=== PATIENT | male | born 1940 | race Caucasian/White ===

== ENCOUNTER 2022-02-15 12:29 | Outpatient (CLI) | payer MEDICARE, SELFPAY ==
--- NOTE | ~2022-02-15 | US_ITS ---
EXAMINATION: US biopsy st neck thorax DATE: 02/15/2022 14:46 INDICATION: Localized swelling, mass and lump at the right neck TECHNIQUE: The procedure including the risks and benefits was discussed with the patient. Risks discu ssed included bleeding and infection. The patient understood the risks and agreed to proceed. The sk in overlying the right neck was prepped and draped in usual sterile fashion. Anesthetic was administ ered with 1% lidocaine subcutaneously. An 18 gauge core biopsy needle was advanced under continuous ultrasound observation to the lesion of interest and a single core biopsy specimens obtained. 5 addit ional core biopsies were obtained with a 14-gauge core biopsy needle also with continuous ultrasound observation. The 18-gauge core and 3 of the 14-gauge core biopsy specimens were placed in RPMI media and 2 of the 14-gauge core biopsy specimens were placed in formalin. The needle was removed and the entry site was cleaned and dressed. Post procedure ultrasound demonstrated no hemorrhage. FINDINGS: Ultrasound images demonstrate biopsy needles advanced into a 3.4 x 2.9 x 2.2 cm hypoechoic mass at the right neck. IMPRESSION: 1. Successful Ultrasound-guided biopsy of a 3.4 x 2.9 x 2.2 cm hypoechoic mass at the right neck. Reviewed, dictated and finalized at location A.
== END 2022-02-15 12:30 | disposition home or self-care (01) ==
PROVIDERS: PCP Emergency Medicine; Visit Provider Emergency Medicine
DX: R22.1 Localized swelling, mass and lump, neck (principal)
CPT/HCPCS: 20206; 76942; 88184; 88305; 88342

== ENCOUNTER 2022-03-23 14:33 | Outpatient (CLI) | payer MEDICARE, SELFPAY ==
--- NOTE | ~2022-03-23 | PE_ITS ---
EXAMINATION: PET skull to mid thigh DATE: 03/23/2022 16:03 INDICATION: Malignant neoplasm of base of tongue. TECHNIQUE: Blood glucose level was 191 mg/dL. 7.721 mCi of 18-fluorodeoxyglucose (18-FDG) was adminis tered i.v. Low dose computed tomography (CT) images were acquired from the base of the brain to the p roximal thighs for attenuation correction and anatomic localization. Automated exposure control was e mployed. Dose-length product (DLP) was 819 mGy-cm. Positron emission tomography (PET) images were acq uired in the same distribution. COMPARISON: Ultrasound 02/15/2022 FINDINGS: Head/neck: There is a 3.4 x 2.4 cm high right internal jugular chain node with maximum SUV of 12.7. T here is increased activity in the oral cavity, pharynx, and glottis without abnormal CT correlate, li asia physiologic. Specifically, no abnormal mass is identified on CT images of the base of tongue. Chest: The lungs demonstrate mild atelectasis. Calcified pulmonary nodules and calcified hilar and me diastinal lymph nodes are consistent with old granulomatous disease. There is a 5 mm nodule in left l ower lobe without increased activity that is too small for PET evaluation, likely benign. No pleural effusion. The heart size is normal. No pericardial effusion. There are coronary artery calcifications . Abdomen/pelvis/proximal thighs: The liver, gallbladder, spleen, pancreas, adrenal glands, and kidneys are normal. There are no dilated loops of bowel. The prostate is mildly enlarged. The appendix is no rmal. There are bilateral inguinal hernias containing fat. There are no pathologically enlarged lymph nodes. There is no free intraperitoneal fluid. There is a small sliding hiatal hernia. There is mode rate lumbar spondylosis. IMPRESSION: 1. Enlarged high right internal jugular chain lymph node with increased activity, consistent with met astatic disease. Reviewed, dictated and finalized at location A. OR [employer] IMPRESSION: 1. Enlarged high right internal jugular chain lymph node with increased activit y, consistent with metastatic disease.
[2022-03-23 14:54] LABS: Glucose Point of Care 191 mg/dl (65-105)
== END 2022-03-23 14:34 | disposition home or self-care (01) ==
PROVIDERS: PCP Emergency Medicine; Visit Provider Radiology Radiation Oncology
DX: C01 Malignant neoplasm of base of tongue (principal)
CPT/HCPCS: 78815; A9552

== ENCOUNTER 2022-06-07 10:56 | Observation (INO) | payer MEDICARE, SELFPAY ==
[2022-06-07] VITALS (8 sets, daily range): BP systolic 89–133; BP diastolic 47–99; PULSE 85–101; RESP 12–22; TEMP 36.4–36.8; O2SAT 97–98; BMI 26.9
--- NOTE | ~2022-06-07 | XR_ITS ---
Portable chest x-ray Comparison: 04/19/2013 Clinical History: Cough Findings: Lungs are clear, without focal consolidation or pleural effusion. Cardiomediastinal silho uette is stable. Bones and soft tissues are unremarkable. Impression: Clear lungs. Reviewed, dictated and finalized at location . OR [facility] NURSING PRACTICE Impression: Clear lungs.
--- NOTE | 2022-06-07 13:25 | ED.GENADULT ---
HPI - General Adult General Chief complaint: Recheck/Abnormal Lab/Rx Stated complaint: hypotension Time Seen by Provider: 06/07/22 13:20 Source: family and RN notes reviewed History of Present Illness HPI narrative: Patient presents emergency department from his radiation therapy for dysphagia. 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 Vo he is also followed by Dr. Castillo for radiation treatment. The patient has lost another 3 pounds since his previous radiation treatment last week and at this point it is felt that the patient is going to repot require a G-tube for continued feeding and hydration. Per the patient's all he was able to eat yesterday was 2 chicken wings and 1 boost the patient has been dehydrated patient has been having intermittent dry heaves which states has been ongoing since he had his chemotherapy patient denies any fevers or chills chest pain shortness of breath abdominal pain at this time Related Data Allergies Allergy/AdvReac Type Severity Reaction Status Date / Time No Known Allergies Allergy Verified 06/07/22 10:08 Review of Systems Review of Systems: Gen.: Denies fevers or chills ENT: See HPI Respiratory: Denies shortness of breath or cough CV: Denies chest pain or palpitations GI: Denies abdominal pain or diarrhea. 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 Cataract (lens) fragments in eye following cataract surgery, bilateral Family History Family History Mother Diabetes mellitus Hypertension Sibling Hypertension Family history of elevated blood lipids Family history of cardiovascular disease Family history of lung cancer Father Family history of malignant neoplasm Other Family history of kidney disease Social History Social History Smoking status: Never smoker Tobacco type: cigarettes Smoking end date: 05/02/1962 Additional smoking assessment comments: smoked on occassion nothing for lengths of time Alcohol intake: never Spiritual care concerns: No Exam Narrative: APPEARANCE: No acute distress, nontoxic, resting in bed EYES: EOMI HEENT: Normocephalic, atraumatic, oral mucosa dry, airway patent RESPIRATORY: No respiratory distress Clear to auscultation bilaterally with no rhonchi wheezing or rales. CARDIOVASCULAR: Regular rate and rhythm without murmurs rubs or gallops. ABDOMINAL: Soft, nontender, nondistended, no rebound or guarding MUSCULOSKELETAl: Moves all extremities. No clubbing, cyanosis or edema. NEURO: Awake and alert. Following commands, speech normal, no focal deficits SKIN:: Warm, dry. No rashes lesions or abrasions PSYCHIATRIC: Normal affect/mood, Course Course Emergency Course: Discussed with Dr Price for GI agrees with consult and will follow as inpatient Discussed with Dr. hunt For oncology agrees with consult and will follow as inpatient Discussed with AAMIR Carl for Dr. Spicer after hospital service agrees with admission Discussed with patient and family results of workup and diagnosis. Discussed need for admission. Patient and family understand and agree to current treatment plan Vital Signs Vital signs: Vital Signs Temperature 97.6 F 06/07/22 11:03 Pulse Rate 89 06/07/22 11:03 Respiratory Rate 16 06/07/22 11:03 Blood Pressure 89/47 L 06/07/22 11:03 Pulse Oximetry 98 06/07/22 11:03 Temperature 97.6 F 06/07
[2022-06-07] MEDS: SODIUM CHLORIDE 0.9% IV 1,000 ML 999 ML IV CONT (14:09)
[2022-06-07 14:30] LABS: Basophils Percent Auto 0.4 % (0.2-1.2); Eosinophils Percent Auto 0.4 % (0-4.4); Hematocrit 29.1 % (42.0-52.0); Hemoglobin 10.6 g/dL (14.0-18.0); Immature Granulocyte Absolute 0.02 K/mm3 (0.00-0.031); Immature Granulocyte Percent A 0.8 % (0-0.5); Lymphocytes Absolute Auto 0.71 K/mm3 (0.9-3.2); Lymphocytes Percent Auto 28.9 % (18.3-44.2); Mean Corpuscular HGB Conc 36.4 g/dl (32-36); Mean Corpuscular Hemoglobin 31.8 pg (26-34); Mean Corpuscular Volume 87.4 fl (80-100); Mean Platelet Volume 8.8 fl (7.4-10.4); Monocytes Absolute Auto 0.4 K/mm3 (0.1-0.6); Neutrophils Absolute Auto 1.3 K/mm3 (1.3-6.7); Neutrophils Percent Auto 54.5 % (45.5-73.1); Platelet Count Result 315 k/mm3 (150-375); Red Blood Count 3.33 M/mm3 (4.6-6.20); Red Cell Distribution Width 14.6 % (11.5-14.5); White Blood Count 2.5 K/mm3 (4.5-10.0)
[2022-06-07 14:38] LABS: Alanine Aminotransferase 19 U/L (6-50); Albumin Level 3.5 g/dL (3.5-5.1); Alkaline Phosphatase 75 U/L (38-126); Anion Gap 7 mmol/L (8-16); Aspartate Amino Transferase 33 U/L (17-59); Bilirubin,Total 0.7 mg/dL (0.2-1.3); Blood Urea Nitrogen 28 mg/dL (9-20); Calcium 8.7 mg/dL (8.4-10.2); Carbon Dioxide 29 mmol/L (22-30); Chloride 96 mmol/L (98-107); Estimated CRCL calculation 35 ml/min; Estimated Glomerular Filt Rate 42; Glucose 163 mg/dL (65-110); Magnesium 1.6 mg/dL (1.6-2.3); Potassium 3.3 mmol/L (3.4-5.0); Sodium 132 mmol/L (137-145)
[2022-06-07 14:39] LABS: INR 1.1; Prothrombin Time 13.8 Seconds (11.1-14.7)
[2022-06-07 14:40] LABS: Partial Thromboplastin Time 28.7 SECONDS (22.3-36.8)
[2022-06-07 15:20] LABS: Influenza A QL RT-PCR Negative (Negative); Influenza B QL RT-PCR Negative (Negative); SARS-CoV-2 RNA PCR Negative
--- NOTE | 2022-06-07 15:45 | ADMGEN ---
This patient, Bebo Carpenter, was admitted to Medical Room 243-01. Patient/family oriented to hospital policies and general routines including ID bracelet, bed and alarms, visiting hours, pain management, procedures, bathroom and other care routines, personal items, smoking policy, room service/diet, and visiting hours. Information on how to activate the Rapid Response Team has been discussed. Patient/Family are encouraged to report perceived risks to care and to ask questions if they do not understand what they are told or what they should do.
--- NOTE | 2022-06-07 15:57 | WPDGICN ---
Assessment and Plan Assessment and plan (1) Cancer of base of tongue: Code(s): C01 - Malignant neoplasm of base of tongue Status: Acute Assessment and Plan: Patient admitted with cancer at the base of the tongue. He will require nutritional support. He has difficulty eating because of pain. He is unable to maintain adequate oral intake. Laboratory parameters show mild azotemia suggesting early dehydration. Plan is for patient to undergo PEG tube placement anticipate this for tomorrow. He does not appear to have any coagulation problems. Anticoagulation such as Plavix will need to be held in anticipation of this. GI Consult Note Consult date/time: 06/07/22 15:57 Reason for consult: Consult for PEG tube placement HPI: Bebo Carpenter is a 81 year old male I am asked to see for possible PEG tube placement. 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 Currently receiving chemotherapy and radiation therapy. Recently he has begun have difficulty because pain in with eating. PEG tube is been advised. For this reason patient went to the emergency room to have this arranged. He is now admitted. Patient admits to only a small amount weight loss. He does not have too much pain when he is not eating. Has begun to lose weight with decreased oral intake. He has no difficulty with bleeding. He does take Plavix on a routine basis. Family history is noncontributory. Patient does report smoking cigarettes 30 years ago. Review of Systems Review of Systems: Review of systems noncontributory. 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 Cataract (lens) fragments in eye following cataract surgery, bilateral Family History Family History Mother Diabetes mellitus Hypertension Sibling Hypertension Family history of elevated blood lipids Family history of cardiovascular disease Family history of lung cancer Father Family history of malignant neoplasm Other Family history of kidney disease Social History Social History Smoking status: Never smoker Tobacco type: cigarettes Smoking end date: 05/02/1962 Additional smoking assessment comments: smoked on occassion nothing for lengths of time Alcohol intake: never Spiritual care concerns: No Meds Home Medications and Allergies Home Medications Medication Instructions Recorded Confirmed Type atorvastatin 40 mg tablet 40 mg PO DAILY #90 tabs 12/17/21 06/07/22 Rx clopidogrel 75 mg tablet See Rx Instructions .Route 03/04/22 06/07/22 Rx .COMPLEX #90 tabs losartan 100 See Rx Instructions .Route 04/21/22 06/07/22 Rx mg-hydrochlorothiazide 12.5 mg .COMPLEX #90 tabs tablet Allergies Allergy/AdvReac Type Severity Reaction Status Date / Time No Known Allergies Allergy Verified 06/07/22 10:08 Vital Signs Vital Signs - 24 hr 06/07/22 11:03 06/07/22 13:19 06/07/22 13:21 Temperature 97.6 F Pulse Rate 89 85 Respiratory Rate 16 12 Blood Pressure 89/47 L 112/77 Pulse Oximetry 98 98 97 06/07/22 13:30 06/07/22 13:31 Temperature Pulse Rate 90 94 Respiratory Rate 22 H 18 Blood Pressure 114/99 H Pulse Oximetry Exam Narrative: Physical exam reveals patient to be alert. Vital signs stable. HEENT exam is unremarkable. Patient is anicteric. Modest swelling on the right side of his neck. Lungs are clear. Heart without murmur. Abdomen bowel sounds present soft nontender no scars are present. No prior surgeries evident. Results Labs 06/07/22 14:17 06/07/22 14:18 Labs: Short CBC 06/07/22 Range/Units 14:17 WBC 2.5 L (4.5-10.0) K/mm3 Hgb 10.6 L (14.0-18.0) g/dL Hct 29.1 L (42.0-52.0) % Plt Count 315 D
[2022-06-07] MEDS: SODIUM CHLORIDE 0.9% IV 1,000 ML 100 ML IV CONT (16:33)
--- NOTE | 2022-06-07 22:06 | PM.IMHP ---
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 The patient is receiving chemotherapy and he is seen by Dr. Vo add he is also followed by Dr. Castillo for radiation treatment. The patient has been losing weight and has had a poor oral intake. Family members are thinking that the patient may need a G-tube for feeding and hydration. The patient was able to eat yesterday but only 8 to chicken wings and a boost. He has been dehydrated and intermittently having some dry heaves. He denies any fever chills. Dr. Price and Dr. Vo have been consulted. The patient was started on Ancef and IV fluids. His white count is 2.5 his H&H is 10.6 and 29.1. The patient has been receiving chemotherapy. Sodium 132 potassium 3.3. Creatinine 1.6 which is around his baseline. Blood sugar 163. COVID is negative influenza a and B are negative as well. Initial blood pressure was 93/52 and got down as low as 89/47. Then it came up to 133/66. The patient is being admitted for observation status on the date of service of 06/07/2022 Review of Systems Review of Systems: See HPI All systems reviewed & are unremarkable except as noted in HPI and below Constitutional: Constitutional: Reports as per HPI and Reports no additional constitutional complaints Eyes: Eyes: Reports as per HPI and Reports no additional eye complaints ENT: Reports system reviewed and no additional complaints, except as documented and Reports Normal hearing present Cardiovascular: Cardiovascular: Reports no additional cardiovascular complaints Respiratory: Respiratory: Reports no additional respiratory complaints and Reports no additional respiratory complaints Gastrointestinal: Gastrointestinal: Reports as per HPI and Reports no additional gastrointestinal complaints Musculoskeletal: Musculoskeletal: Reports no additional musculoskeletal complaints Integumentary/Breasts: Skin/Breast: Reports system reviewed and no additional complaints, except as docu and Reports as per HPI Neurologic: Reports system reviewed and no additional complaints, except as documented, Reports as per HPI and Reports Normal hearing present Psychiatric: Psychiatric: Reports no additional psychiatric complaints and Reports as per HPI Endocrine: Endocrine: Reports no additional endocrine complaints Hematologic/Lymphatic: Hematologic/Lymphatic: Reports no additional hematologic/lymphatic complaints Allergic/Immunologic: Allergic/Immunologic: Reports no additional allergic/immunologic complaints [facility] Past Medical History Medical History (Updated 06/08/22 @ 02:10 by Meseret Ayala NP) Benign hypertension 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 Cataract (lens) fragments in eye following cataract surgery, bilateral Essential (primary) hypertension History of CVA (cerebrovascular accident) Mixed hyperlipidemia Obstructive sleep apnea Surgical History Surgical History (Updated 06/08/22 @ 02:00 by Meseret Ayala NP) Surgical history unknown Family History Family History Mother Diabetes mellitus Hypertension Sibling Hypertension Family history of elevated blood lipids Family history of cardiovascular disease Family history of lung cancer Father Family history of malignant neoplasm Other Family history of kidney disease Social History Social History (Updated 06/08/22 @ 02:01 by Meseret Ayala NP) Social History: The patient lives with his and has 4 children. The patient used to smoke. Code status full code Smoking status: Former smoker Tobacco type: cigarettes Second hand tobacco smoke exposure: No Smoking end date: 05/02/1962 Additional smoking assessment comments: smoked on occassion nothing for lengths of time
[2022-06-08] VITALS (11 sets, daily range): BP systolic 116–144; BP diastolic 56–80; PULSE 79–96; RESP 18–25; TEMP 36.1–37.6; O2SAT 94–100; BMI 26.9
[2022-06-08] MEDS: SODIUM CHLORIDE 0.9% IV 1,000 ML 100 ML IV CONT (02:35)
[2022-06-08 05:26] LABS: Glucose Point of Care 110 mg/dl (65-105)
[2022-06-08 05:49] LABS: Basophils Percent Auto 0.5 % (0.2-1.2); Eosinophils Percent Auto 1.5 % (0-4.4); Hematocrit 26.9 % (42.0-52.0); Hemoglobin 9.5 g/dL (14.0-18.0); Immature Granulocyte Absolute 0.02 K/mm3 (0.00-0.031); Lymphocytes Absolute Auto 0.59 K/mm3 (0.9-3.2); Lymphocytes Percent Auto 29.4 % (18.3-44.2); Mean Corpuscular HGB Conc 35.3 g/dl (32-36); Mean Corpuscular Volume 87.9 fl (80-100); Mean Platelet Volume 8.6 fl (7.4-10.4); Monocytes Absolute Auto 0.3 K/mm3 (0.1-0.6); Monocytes Percent Auto 15.4 % (2.6-8.5); Neutrophils Absolute Auto 1.1 K/mm3 (1.3-6.7); Neutrophils Percent Auto 52.2 % (45.5-73.1); Platelet Count Result 289 k/mm3 (150-375); Red Blood Count 3.06 M/mm3 (4.6-6.20); Red Cell Distribution Width 14.5 % (11.5-14.5)
[2022-06-08 05:59] LABS: INR 1.2; Prothrombin Time 14.5 Seconds (11.1-14.7)
[2022-06-08 06:07] LABS: Alanine Aminotransferase 17 U/L (6-50); Albumin Level 3.1 g/dL (3.5-5.1); Alkaline Phosphatase 62 U/L (38-126); Anion Gap 4 mmol/L (8-16); Aspartate Amino Transferase 28 U/L (17-59); Bilirubin,Total 0.8 mg/dL (0.2-1.3); Blood Urea Nitrogen 21 mg/dL (9-20); Calcium 7.9 mg/dL (8.4-10.2); Carbon Dioxide 29 mmol/L (22-30); Chloride 99 mmol/L (98-107); Estimated CRCL calculation 45 ml/min; Estimated Glomerular Filt Rate 58; Glucose 109 mg/dL (65-110); Potassium 3.2 mmol/L (3.4-5.0); Sodium 132 mmol/L (137-145)
[2022-06-08] MEDS: KCL 20MEQ/0.9% SOD CHL 1,000 ML 75 ML IV CONT (08:28)
[2022-06-08 10:26] LABS: Hemoglobin A1C 10.8 % (<5.7)
[2022-06-08] MEDS: LACTATED RINGERS 1,000 ML 150 ML IV CONT (10:26)
[2022-06-08 10:27] LABS: Glucose Point of Care 124 mg/dl (65-105)
--- NOTE | 2022-06-08 10:48 | WPDANESEPPF ---
Anes - Initial Pre Proc Eval Procedure: Operation Date: 06/08/22 12:30 Proposed Procedures p Percutaneous Endoscopic Gastrostomy - Ulysses Price MD Date/Time: 06/08/22 10:48 Surgeon: Nishi Spicer MD Pre Op Diagnosis: Dehydration/Throat Cancer/Renal Insufficiency Patient Data Age: 81 Gender: M Height: 1.75 m Weight: 82.6 kg Last Vital Signs Temp 97.4 F L 06/08/22 10:35 Pulse 91 06/08/22 10:35 Resp 18 06/08/22 10:35 BP 128/60 06/08/22 10:35 Pulse Ox 98 06/08/22 10:35 O2 Del Method Room Air 06/08/22 10:35 Allergies Allergy/AdvReac Type Severity Reaction Status Date / Time No Known Allergies Allergy Verified 06/08/22 10:31 Home Medications Medication Instructions Recorded Confirmed Type atorvastatin 40 mg tablet 40 mg PO DAILY #90 tabs 12/17/21 06/07/22 Rx clopidogrel 75 mg tablet See Rx Instructions .Route 03/04/22 06/07/22 Rx .COMPLEX #90 tabs losartan 100 See Rx Instructions .Route 04/21/22 06/07/22 Rx mg-hydrochlorothiazide 12.5 mg .COMPLEX #90 tabs tablet Laboratory Tests 06/07/22 06/07/22 06/07/22 14:17 14:17 14:18 WBC 2.5 K/mm3 L K/mm3 (4.5-10.0) RBC 3.33 M/mm3 L M/mm3 (4.6-6.20) Hgb 10.6 g/dL L g/dL (14.0-18.0) Hct 29.1 % L % (42.0-52.0) MCV 87.4 fl fl (80-100) MCH 31.8 pg pg (26-34) MCHC 36.4 g/dl H g/dl (32-36) RDW 14.6 % H % (11.5-14.5) Plt Count 315 k/mm3 D k/mm3 (150-375) MPV 8.8 fl fl (7.4-10.4) Immature Gran % (Auto) 0.8 % H % (0-0.5) Neut % (Auto) 54.5 % % (45.5-73.1) Lymph % (Auto) 28.9 % % (18.3-44.2) [place] % (Auto) 15.0 % H % (2.6-8.5) Eos % (Auto) 0.4 % % (0-4.4) Baso % (Auto) 0.4 % % (0.2-1.2) Lymph # (Auto) 0.71 K/mm3 L K/mm3 (0.9-3.2) [place] # (Auto) 0.4 K/mm3 K/mm3 (0.1-0.6) Eos # (Auto) 0.0 K/mm3 K/mm3 (0-0.3) Baso # (Auto) 0.0 K/mm3 K/mm3 (0.0-0.1) Abs Immat Gran (auto) 0.02 K/mm3 K/mm3 (0.00-0.031) Absolute Neuts (auto) 1.3 K/mm3 K/mm3 (1.3-6.7) Absolute Nucleated RBC 0.0 K/mm3 K/mm3 (0.0-0.012) Nucleated RBC % 0.0 % % (0.0-0.2) PT 13.8 Seconds Seconds (11.1-14.7) INR 1.1 APTT 28.7 SECONDS SECONDS (22.3-36.8) Sodium Potassium Chloride Carbon Dioxide Anion Gap BUN Creatinine Estim Creat Clear Calc Estimated GFR Glucose POC Capillary Glucose Hemoglobin A1c Calcium Magnesium Total Bilirubin AST ALT Alkaline Phosphatase Total Protein Albumin Influenza A (RT-PCR) Negative (Negative) Influenza B (RT-PCR) Negative (Negative) SARS-CoV-2 RNA (RT-PCR) Negative 06/07/22 06/08/22 06/08/22 14:18 05:10 05:10 WBC 2.0 K/mm3 L K/mm3 (4.5-10.0) RBC 3.06 M/mm3 L M/mm3 (4.6-6.20) Hgb 9.5 g/dL L g/dL (14.0-18.0) Hct 26.9 % L % (42.0-52.0) MCV 87.9 fl fl (80-100) MCH 31.0 pg pg (26-34) MCHC 35.3 g/dl g/dl (32-36) RDW 14.5 % % (11.5-14.5) Plt Count 289 k/mm3 k/mm3 (150-375) MPV 8.6 fl fl (7.4-10.4) Immature Gran % (Auto) 1.0 % H % (0-0.5) Neut % (Auto) 52.2 % % (45.5-73.1) Lymph % (Auto) 29.4 % % (18.3-44.2) [place] % (Auto) 15.4 % H % (2.6-8.5) Eos % (Auto) 1.5 % % (0-4.4) Baso % (Auto) 0.5 % % (0.2-1.2) Lymph # (Auto) 0.59 K/mm3 L K/mm3 (0.9-3.2) [place] # (Auto) 0.3 K/mm3 K/mm3 (0.1-0.6) Eos # (Auto) 0.0 K/mm3 K/mm3 (0-0.3)
--- NOTE | 2022-06-08 11:41 | PM.IMPN ---
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 The patient is receiving chemotherapy and he is seen by Dr. Vo add he is also followed by Dr. Castillo for radiation treatment.?Presented with cheif complaints of weight loss and Poor PO intake. Was hypotensive upon admission with AK and hypokalemia. 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 4)Hypertension: Was hypotensive on arrival Holding oral meds for now 5)Anemia: ?etiology Obtain iron panel, fecal occult blood PPI Monitor H/H 5)DVT ppx:Hep SQ 6)Code:Full 7)Dispo:pending PEG tube placement and tolerating tube feeds, will likely need SNF Time Spent With Patient Time with patient: 25 - 35 minutes Subjective Date/time seen: 06/08/22 11:41 Interval history: no acute events overnight BP remained stable Await PEG tube placement today Review of Systems Constitutional: Constitutional: Reports fatigue and Reports lethargy Eyes: Eyes: Reports as per HPI ENT: Reports system reviewed and no additional complaints, except as documented Cardiovascular: Cardiovascular: Reports no additional cardiovascular complaints Gastrointestinal: Gastrointestinal: Reports no additional gastrointestinal complaints Musculoskeletal: Musculoskeletal: Reports no additional musculoskeletal complaints Neurologic: Reports as per HPI Exam Const: General: comfortable and no acute distress HENMT: Mouth: Yes dry mucous membranes Eyes: Sclera: sclerae normal Neck: Neck: supple Resp: Effort & Inspection: normal respiratory effort Auscultation: clear to auscultation bilaterally Cardio: Rate: regular rate Rhythm: regular rhythm GI: GI Palp: Yes Soft to palpation Auscultation: normal bowel sounds Skin: General skin exam: normal color Extrem: General: normal to inspection Psych: Mental Status: mental status grossly normal Objective Data Vital Signs Vital Signs: Vital Signs - 24 hr 06/07/22 13:19 06/07/22 13:21 06/07/22 13:30 Temperature Pulse Rate 85 90 Respiratory Rate 12 22 H Blood Pressure 112/77 114/99 H Pulse Oximetry 98 97 Oxygen Delivery Oxygen Flow Rate 06/07/22 13:31 06/07/22 16:12 06/07/22 15:53 Temperature 98.2 F Pulse Rate 94 95 95 Respiratory Rate 18 18 18 Blood Pressure 133/66 Pulse Oximetry 97 97 Oxygen Delivery Room Air Oxygen Flow Rate 06/07/22 22:04 06/07/22 20:00 06/08/22 06:00 Temperature 97.6 F 97.0 F L Pulse Rate 101 H 96 Respiratory Rate 18 18 Blood Pressure 117/65 130/56 L Pulse Oximetry 97 97 Oxygen Delivery Room Air Oxygen Flow Rate 06/08/22 10:35 06/08/22 11:25 06/08/22 11:35 Temperature 97.4 F L Pulse Rate 91 93 92 Respiratory Rate 18 25 H 22 H Blood Pressure 128/60 116/74 118/72 Pulse Oximetry 98 98 100 Oxygen Delivery Room Air Nasal Cannula Nasal Cannula Oxygen Flow Rate 4 4 Intake/Output Intake/Output: Intake & Output 06/05/22 06/06/22 06/07/22 06/08/22 23:59 23:59 23:59 23:59 Intake Total 1120 1000 Output Total 600 Balance 1120 400 Meds/Results Medications: Active Medications Generic Name Dose Route Start Last Admin Trade Name Freq PRN
[2022-06-08 11:45] LABS: Glucose Point of Care 119 mg/dl (65-105)
[2022-06-08 12:24] LABS: Glucose Point of Care 109 mg/dl (65-105)
--- NOTE | 2022-06-08 12:57 | PDONCCN ---
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 Patient is currently receiving concurrent chemoradiation therapy with cisplatin. He is due to receive last round of chemotherapy this week. He came into the hospital with generalized weakness and 30 lb weight loss with poor appetite. He was found to be hypotensive. He has been having difficulty eating and swallowing due to significant mucositis and dryness of the mouth. Labs also revealed low WBC count and hemoglobin. Creatinine was elevated with elevated BUN. Patient underwent EGD and placement of percutaneous gastrostomy tube done today. He seems to be slightly confused today. Review of Systems - Review of Systems All systems reviewed & are unremarkable except as noted in HPI and bel - Neurologic Reports system reviewed and no additional complaints, except as documented, Reports hearing normal [facility] Medical History: Medical History (Last Updated 06/08/22 @ 02:08 by Meseret Ayala NP) Benign hypertension 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 Cataract (lens) fragments in eye following cataract surgery, bilateral Essential (primary) hypertension History of CVA (cerebrovascular accident) Mixed hyperlipidemia Obstructive sleep apnea Surgical History: Surgical History (Last Updated 06/08/22 @ 02:00 by Meseret Ayala NP) Surgical history unknown Family History: Family History (Last Reviewed 06/08/22 @ 02:00 by Meseret Ayala NP) Mother Diabetes mellitus Hypertension Sibling Hypertension Family history of elevated blood lipids Family history of cardiovascular disease Family history of lung cancer Father Family history of malignant neoplasm Other Family history of kidney disease - Social History Social History: Social History (Last Updated 06/08/22 @ 02:01 by Meseret Ayala NP) Alcohol Use: Alcohol intake: never Substance Use: Substance use: never Others: Spiritual care concerns: No Smoking Status: Smoking status: Former smoker Tobacco type: cigarettes Second hand tobacco smoke exposure: No Smoking end date: 05/02/1960 Comments: Additional smoking assessment comments: smoked on occassion nothing for lengths of time Social Determinants of Health: Has the Lack of Transportation Kept You From Medical Appointments or From Getting Medications?: No Within the Past 12 Months, Were You Worried Whether Your Food Would Run Out Before You Got Money to Buy More?: Never True What is Your Housing Situation Today?: I Have Housing Are You Worried That in the Next 2 Months, You May Not Have Your Own Housing to Live In?: No Do You Have Trouble Paying Your Heating Or Electricity Bill?: No Do You Have Trouble Paying For Medicines?: No Are You Currently Unemployed and Looking for Work?: No Highest Level of Education Completed: High School Diploma/GED Do You Have Trouble With Childcare or the Care of a Family Member?: No Exam - Vital Signs Vital Signs - 24 hr 06/07/22 13:19 06/07/22 13:21 06/07/22 13:30 Temperature Pulse Rate 85 90 Respiratory Rate 12 22 H Blood Pressure 112/77 114/99 H Pulse Oximetry 98 97 Oxygen Delivery Oxygen Flow Rate 06/07/22 13:31 06/07/22 16:12 06/07/22 15:53 Temperature 36.8 C Pulse Rate 94 95 95 Respiratory Rate 18 18 18 Blood Pressure 133/66 Pulse Oximetry 97 97 Oxygen Delivery Room Air Oxygen Flow Rate 06/07/22 22:04 06/07/22 20:00 06/08/22 06:00 Temperature 36.4 C 36.1 C L Pulse Rate 101 H 96 Respiratory Rate 18 18 Blood Pressu
[2022-06-08 14:59] LABS: Iron 58 ug/dL (49-181)
[2022-06-08 15:09] LABS: Percent Iron Saturation 28 % (20-50)
[2022-06-08 17:11] LABS: Glucose Point of Care 135 mg/dl (65-105)
[2022-06-08 17:37] LABS: Partial Thromboplastin Time 28.4 SECONDS (22.3-36.8)
[2022-06-09] VITALS (7 sets, daily range): BP systolic 129–143; BP diastolic 63–78; PULSE 91–99; RESP 18; TEMP 36.5–37; O2SAT 96–98; BMI 26.9
[2022-06-09 00:48] LABS: Glucose Point of Care 158 mg/dl (65-105)
[2022-06-09 06:08] LABS: Glucose Point of Care 162 mg/dl (65-105)
--- NOTE | 2022-06-09 07:29 | WPDGIPROGNO ---
Progress Note: A&P Assessment and Plan (1) PEG (percutaneous endoscopic gastrostomy) status: Code(s): Z93.1 - Gastrostomy status Status: Acute Assessment and Plan: Peg tube placed yesterday. Appears be functioning adequately. Patient tolerating tube feedings at30cc an hour. Plan to increase to60cc per an hour. Family should be instructed on bolus tube feedings after discharge. Plan to continue local care to PEG tube site several times a day with either hydrogen peroxide or Betadine. Patient may be discharged today from my perspective. Patient may continue oral intake as tolerated. (2) Head and neck cancer: Code(s): C76.0 - Malignant neoplasm of head, face and neck Status: Acute Assessment and Plan: Follow-up with Oncology as scheduled. Subjective Date/time seen: 06/09/22 07:29 Interval history: Patient alert this morning. Appears at his baseline. Tolerating tube feedings at a slow rate. Review of Systems Review of Systems: Review of systems noncontributory. Exam Narrative: Physical exam reveals patient be alert. Vital signs stable. HEENT exam unremarkable. Lungs are clear. Heart without murmur. Abdomen PEG tube in left upper quadrant appears to be healing well. No significant inflammation or tenderness. Bowel sounds are present normoactive. Objective Data Vital Signs Vital Signs: Vital Signs - 24 hr 06/08/22 10:35 06/08/22 11:25 06/08/22 11:35 Temperature 97.4 F L Pulse Rate 91 93 92 Respiratory Rate 18 25 H 22 H Blood Pressure 128/60 116/74 118/72 Pulse Oximetry 98 98 100 Oxygen Delivery Room Air Nasal Cannula Nasal Cannula Oxygen Flow Rate 4 4 06/08/22 11:45 06/08/22 12:00 06/08/22 12:15 Temperature 97.0 F L 97.6 F Pulse Rate 88 92 85 Respiratory Rate 23 H 18 18 Blood Pressure 128/71 144/60 H 129/76 Pulse Oximetry 97 94 97 Oxygen Delivery Room Air Oxygen Flow Rate 06/08/22 12:45 06/08/22 13:35 06/08/22 18:40 Temperature 97.8 F 97.5 F L 98.5 F Pulse Rate 79 94 93 Respiratory Rate 18 18 18 Blood Pressure 140/64 135/80 120/64 Pulse Oximetry 97 98 98 Oxygen Delivery Oxygen Flow Rate 06/08/22 23:39 02/08/23 02:35 Temperature 99.6 F 98.6 F Pulse Rate 93 99 Respiratory Rate 20 18 Blood Pressure 131/66 129/63 Pulse Oximetry 98 97 Oxygen Delivery Oxygen Flow Rate Intake/Output Intake/Output: Intake & Output 06/06/22 06/07/22 06/08/22 06/09/22 23:59 23:59 23:59 23:59 Intake Total 1120 2470 420 Output Total 853 Balance 1120 1617 420 Meds/Results Medications: Active Medications Generic Name Dose Route Start Last Admin Trade Name Freq PRN Reason Stop Dose Admin Dextrose 12.5 gm 06/08/22 01:56 Dextrose 50% 25 Gm/50 Ml Syringe IV PUSH PRN PRN Hypoglycemia Protocol Glucagon 1 mg 06/08/22 01:56 Glucagon For Inj 1 Mg Vial IM PRN PRN Hypoglycemia Protocol Glucose 15 gm 06/08/22 01:56 Glucose Oral Gel 15 Gm Of Glucse In 37.5 Gm Tube PO PRN PRN Hypoglycemia Protocol Heparin Sodium (Porcine) 5,000 units 06/09/22 09:00 Heparin Sodium 5,000 Units/Ml Vial SUB-Q Q12HR [facility] Dextrose 1,000 mls @ 100 mls/hr 06/08/22 01:56 Dextrose 5% 1,000 Ml IVPB PRN PRN Hypoglycemia Protocol Potassium Chloride/Sodium Chloride 1,000 mls @ 75 mls/hr 06/08/22 07:50 06/09/22 00:00 Kcl 20 Meq/Ns IV CONT 75 mls/hr .[id number] [facility] Administration Insulin Aspart 2 - 5 units 06/08/22 06:00 06/09/22 06:18 Insulin Aspart (*Bkc) 100 Units/Ml SUB-Q Not Given Q6HR [facility] Protocol Insulin Glargine 5 units 06/08/22 21:00 06/08/22 21:00 Insulin Glargine (*Bkc) 100 Units/Ml SUB-Q Not Given HS [facility] Radiology Results: ITS Impressions Chest X-Ray 06/07/22 14:34 Impression: Clear lungs. Labs Labs: Laboratory Results - last 24 hr 06/08/22 06/08/22 06/08/22 05:10 10:24 11:43 APTT
--- NOTE | 2022-06-09 07:44 | PC.NURSE ---
Pt bed alarm went off this nurse ran to pt room. Pt got over the bed rail with one leg out of bed , one leg in bed. IV tubing and GT pulled taunt. Pt stated he has to void. Urinal on bedside table next to pt. Pt unable to state where he is. Pt states it is 2023. Assisted pt , gave urinal. voided . pt found with HOB flat with the tube feeding running. Pt is putting the HOB flat. Raised HOB and locked on bed screen. Bed alarm on. Report given to next shift nurse Han.
--- NOTE | 2022-06-09 08:06 | WPDANESPN ---
Anes - Prog Note Post-Op Date/Time: 06/09/22 08:06 Vital Signs: Last Vital Signs Temp 36.9 C 06/09/22 06:15 Pulse 91 06/09/22 06:15 Resp 18 06/09/22 06:15 BP 135/68 06/09/22 06:15 Pulse Ox 96 06/09/22 06:15 O2 Del Method Room Air 06/08/22 11:45 O2 Flow Rate 4 06/08/22 11:35 Pain Score (VAS): 0 I/O: Intake & Output 06/08/22 06/09/22 06/09/22 23:59 07:59 15:59 Intake Total 1250 420 Output Total 253 Balance 997 420 Laboratory Tests 06/08/22 05:10 06/08/22 05:10 06/08/22 06/08/22 06/08/22 05:10 10:24 11:43 APTT POC Capillary Glucose 124 H 119 H Hemoglobin A1c 10.8 H Iron TIBC % Saturation Ferritin Vitamin B12 Folate 06/08/22 06/08/22 06/08/22 12:16 13:32 13:32 APTT POC Capillary Glucose 109 H Hemoglobin A1c Iron 58 TIBC 210 L % Saturation 28 Ferritin 589.00 H Vitamin B12 525.0 Folate 9.0 06/08/22 06/08/22 06/09/22 17:07 17:14 00:19 APTT 28.4 POC Capillary Glucose 135 H 158 H Hemoglobin A1c Iron TIBC % Saturation Ferritin Vitamin B12 Folate 06/09/22 06:06 APTT POC Capillary Glucose 162 H Hemoglobin A1c Iron TIBC % Saturation Ferritin Vitamin B12 Folate Patient Feedback: Patient satisfied with anesthetic care.
[2022-06-09 08:37] LABS: Basophils Percent Auto 0.4 % (0.2-1.2); Eosinophils Percent Auto 1.5 % (0-4.4); Hematocrit 27.3 % (42.0-52.0); Hemoglobin 9.8 g/dL (14.0-18.0); Immature Granulocyte Absolute 0.03 K/mm3 (0.00-0.031); Immature Granulocyte Percent A 1.1 % (0-0.5); Lymphocytes Percent Auto 26.3 % (18.3-44.2); Mean Corpuscular HGB Conc 35.9 g/dl (32-36); Mean Corpuscular Hemoglobin 31.5 pg (26-34); Mean Corpuscular Volume 87.8 fl (80-100); Mean Platelet Volume 8.3 fl (7.4-10.4); Monocytes Absolute Auto 0.4 K/mm3 (0.1-0.6); Monocytes Percent Auto 16.5 % (2.6-8.5); Neutrophils Absolute Auto 1.4 K/mm3 (1.3-6.7); Neutrophils Percent Auto 54.2 % (45.5-73.1); Platelet Count Result 328 k/mm3 (150-375); Red Blood Count 3.11 M/mm3 (4.6-6.20); Red Cell Distribution Width 15.1 % (11.5-14.5); White Blood Count 2.7 K/mm3 (4.5-10.0)
[2022-06-09 08:47] LABS: Alanine Aminotransferase 15 U/L (6-50); Albumin Level 2.9 g/dL (3.5-5.1); Alkaline Phosphatase 67 U/L (38-126); Anion Gap 2 mmol/L (8-16); Aspartate Amino Transferase 32 U/L (17-59); Bilirubin,Total 0.6 mg/dL (0.2-1.3); Blood Urea Nitrogen 16 mg/dL (9-20); Calcium 7.8 mg/dL (8.4-10.2); Carbon Dioxide 31 mmol/L (22-30); Chloride 103 mmol/L (98-107); Estimated CRCL calculation 53 ml/min; Estimated Glomerular Filt Rate > 60; Glucose 167 mg/dL (65-110); Magnesium 1.5 mg/dL (1.6-2.3); Potassium 3.8 mmol/L (3.4-5.0); Sodium 136 mmol/L (137-145)
[2022-06-09 09:05] LABS: Iron 47 ug/dL (49-181)
[2022-06-09 09:15] LABS: Percent Iron Saturation 24 % (20-50)
[2022-06-09] MEDS: HEPARIN SODIUM 5,000 UNITS/ML VIAL 5000 UNITS SUB-Q ×2 (09:17→20:38)
--- NOTE | 2022-06-09 11:27 | PCNFU ---
Nutrition Follow-Up Complete: Severe Malnutrition related to inadequate protein-energy intake with increased protein energy needs in setting of chronic disease (chemo treatment for tongue cancer) as evidenced by minimal oral intake for > 1-2 months; significant weight loss of 14% (30 ibs) in 5 weeks. goal: Meet estimated nutritional needs Patient is progressing towards goal. We will continue current goal. Pt current nutrition is Glucerna 1.2 at 60ml/hr and oral feedings of Minced and Moist Level 5. Last recorded weight is 82.6 kg. Bowel Motility: No Bm reported. Labs Reviewed:Glu 167, Na 136, Alb 2.9,Hct 27.3 Meds Noted: Heparin Skin: WNL Additional Notes: Patient started on tube feedings of Glucerna 1.2 at 30 ml/hr overnight. Tolerating feedings per nursing. GI advanced tube feedings to 60 ml/hr this morning. Nutrition Recommendations: If you plan to continue with continuous feedings recommend goal rate at 75 ml/hr. Bolus feedings recommend starting at 360 ml-4 x daily while awake, which will provide patient with 1728 kcals/86 gms protein/1159 ml water. Flush 100 ml with feedings. Patient has been also tolerating oral intake of Minced and Moist Level 5 diet with Glucerna shakes BID.50% for breakfast today. Bolus feedings can be adjusted with increased oral intake. Monitoring: Will monitor every Tuesday and Tuesday.
[2022-06-09 11:54] LABS: Glucose Point of Care 188 mg/dl (65-105)
[2022-06-09] MEDS: KCL 20MEQ/0.9% SOD CHL 1,000 ML 75 ML IV CONT ×2 (12:40)
--- NOTE | 2022-06-09 13:13 | PM.IMPN ---
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 The patient is receiving chemotherapy and he is seen by Dr. Vo add he is also followed by Dr. Castillo for radiation treatment.?Presented with cheif complaints of weight loss and Poor PO intake. Was hypotensive upon admission with LOGAN and hypokalemia. # Acute Dehydration: 2/2 Poor PO intake GI was consulted Status post PEG tube placement 06/08/2022 Tube feeds running. 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 On losartan hydrochlorothiazide at home. Currently on hold # head and neck cancer following with Oncology # bicytopenia with anemia and leukopenia Likely due to chemotherapy Continue to monitor No signs of bleeding Monitor H/H # DVT ppx:Hep SQ # Code:Full # Dispo: Status post PEG tube placement and tolerating tube feeds, PT OT to see. Awaiting placement Subjective Date/time seen: 06/09/22 13:13 Interval history: No overnight events. Patient bit confused this morning. G-tube placed yesterday and tube feeds has been started. Also on oral diet. Review of Systems Review of Systems: All systems reviewed & are unremarkable except as noted in HPI and below Exam Narrative: APPEARANCE:? No acute distress, nontoxic not in acute distress EYES: EOMI HEENT: Normocephalic, atraumatic,? oral mucosa dry, airway patent RESPIRATORY: No respiratory distress Clear to auscultation bilaterally with no rhonchi wheezing or rales. CARDIOVASCULAR: Regular rate and rhythm without murmurs rubs or gallops. ABDOMINAL: Soft, nontender, nondistended, no rebound or guarding G-tube in-situ MUSCULOSKELETAl: Moves all extremities. No clubbing, cyanosis or edema. NEURO: Awake and alert. Following commands, speech normal, no focal deficits intermittently confused SKIN:: Warm, dry. No rashes lesions or abrasions PSYCHIATRIC: Normal affect/mood, Objective Data Vital Signs Vital Signs: Vital Signs - 24 hr 06/08/22 13:35 06/08/22 18:40 06/08/22 23:39 Temperature 97.5 F L 98.5 F 99.6 F Pulse Rate 94 93 93 Respiratory Rate 18 18 20 Blood Pressure 135/80 120/64 131/66 Pulse Oximetry 98 98 98 Oxygen Delivery 06/09/22 02:35 06/09/22 06:15 06/09/22 09:45 Temperature 98.6 F 98.5 F Pulse Rate 99 91 Respiratory Rate 18 18 Blood Pressure 129/63 135/68 Pulse Oximetry 97 96 96 Oxygen Delivery Room Air 06/09/22 10:00 Temperature 98.5 F Pulse Rate 94 Respiratory Rate 18 Blood Pressure 132/78 Pulse Oximetry 97 Oxygen Delivery Intake/Output Intake/Output: Intake & Output 06/06/22 06/07/22 06/08/22 06/09/22 23:59 23:59 23:59 23:59 Intake Total 1120 2470 2018 Output Total 853 Balance 1120 1617 2017 Meds/Results Medications: Active Medications Generic Name Dose Route Start Last Admin Trade Name Freq PRN Reason Stop Dose Admin Dextrose 12.5 gm 06/08/22 01:56 Dextrose 50% 25 Gm/50 Ml Syringe IV PUSH PRN PRN Hypoglycemia Protocol Glucagon 1 mg 06/08/22 01:56 Glucagon For Inj 1 Mg Vial IM PRN PRN Hypoglycemia Protocol Glucose 15 gm 06/08/22 01:56 Glucose Oral Gel 15 Gm Of G
[2022-06-09] MEDS: MAGNESIUM SULF 2 GM/WATER 50ML 2 GM/50 ML BAG IVPB (14:53)
--- NOTE | 2022-06-09 16:07 | PC.NURSE ---
On 06/09/22, the student, [Eva Nice], provided care and completed [facility] documentation on this patient. I have reviewed the student's documentation and agree with the findings.
[2022-06-09 17:35] LABS: Glucose Point of Care 187 mg/dl (65-105)
[2022-06-09] MEDS: INSULIN GLARGINE (*BKC) 100 UNITS/ML SUB-Q (20:55)
[2022-06-09 20:56] LABS: Glucose Point of Care 184 mg/dl (65-105)
[2022-06-10] VITALS (7 sets, daily range): BP systolic 115–156; BP diastolic 68–77; PULSE 90–113; RESP 16–20; TEMP 36.4–37.8; O2SAT 93–99
[2022-06-10 00:19] LABS: Glucose Point of Care 169 mg/dl (65-105)
--- NOTE | 2022-06-10 04:41 | PC.NURSE ---
pt with 2 attempts thus far this shift getting out of bed Confused. Unaware of where he is , nor time. Fall/ safety precautions
[2022-06-10 05:32] LABS: Basophils Percent Auto 0.8 % (0.2-1.2); Eosinophils Percent Auto 1.5 % (0-4.4); Hematocrit 26.3 % (42.0-52.0); Hemoglobin 9.5 g/dL (14.0-18.0); Immature Granulocyte Absolute 0.05 K/mm3 (0.00-0.031); Immature Granulocyte Percent A 1.9 % (0-0.5); Lymphocytes Absolute Auto 0.76 K/mm3 (0.9-3.2); Lymphocytes Percent Auto 29.3 % (18.3-44.2); Mean Corpuscular HGB Conc 36.1 g/dl (32-36); Mean Corpuscular Hemoglobin 31.8 pg (26-34); Mean Platelet Volume 8.6 fl (7.4-10.4); Monocytes Absolute Auto 0.5 K/mm3 (0.1-0.6); Monocytes Percent Auto 17.4 % (2.6-8.5); Neutrophils Absolute Auto 1.3 K/mm3 (1.3-6.7); Neutrophils Percent Auto 49.1 % (45.5-73.1); Platelet Count Result 322 k/mm3 (150-375); Red Blood Count 2.99 M/mm3 (4.6-6.20); White Blood Count 2.6 K/mm3 (4.5-10.0)
[2022-06-10 05:42] LABS: Alanine Aminotransferase 15 U/L (6-50); Alkaline Phosphatase 70 U/L (38-126); Anion Gap 2 mmol/L (8-16); Aspartate Amino Transferase 25 U/L (17-59); Bilirubin,Total 0.5 mg/dL (0.2-1.3); Blood Urea Nitrogen 14 mg/dL (9-20); Calcium 8.1 mg/dL (8.4-10.2); Carbon Dioxide 30 mmol/L (22-30); Chloride 100 mmol/L (98-107); Estimated CRCL calculation 58 ml/min; Estimated Glomerular Filt Rate > 60; Glucose 176 mg/dL (65-110); Magnesium 1.8 mg/dL (1.6-2.3); Potassium 3.4 mmol/L (3.4-5.0); Sodium 132 mmol/L (137-145)
[2022-06-10 06:02] LABS: Glucose Point of Care 198 mg/dl (65-105)
[2022-06-10] MEDS: HEPARIN SODIUM 5,000 UNITS/ML VIAL 5000 UNITS SUB-Q ×2 (08:04→20:35)
[2022-06-10 12:05] LABS: Glucose Point of Care 237 mg/dl (65-105)
[2022-06-10] MEDS: INSULIN ASPART (*BKC) 100 UNITS/ML SUB-Q ×2 (12:06→18:42)
--- NOTE | 2022-06-10 13:06 | PC.NURSE ---
On 06/10/22, the student, [Dee Dee Ross], provided care and completed [facility] [employer] documentation on this patient. I have reviewed the student's documentation and agree with the findings.
--- NOTE | 2022-06-10 14:30 | PM.IMPN ---
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 The patient is receiving chemotherapy and he is seen by Dr. Vo add he is also followed by Dr. Castillo for radiation treatment.?Presented with cheif complaints of weight loss and Poor PO intake. Was hypotensive upon admission with LOGAN and hypokalemia. # Acute Dehydration: 2/2 Poor PO intake GI was consulted Status post PEG tube placement 06/08/2022 Tube feeds running. 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 On losartan hydrochlorothiazide at home. Currently on hold # head and neck cancer following with Oncology # bicytopenia with anemia and leukopenia Likely due to chemotherapy Continue to monitor No signs of bleeding Monitor H/H # DVT ppx:Hep SQ # Code:Full # Dispo: Status post PEG tube placement and tolerating tube feeds, PT OT to see. Awaiting placement Subjective Date/time seen: 06/10/22 14:30 Interval history: no overnight events, denies any complaints .no nausea, vomiting, abdominal pain. tolerating tube feeds. Review of Systems Review of Systems: All systems reviewed & are unremarkable except as noted in HPI and below Exam Narrative: APPEARANCE:? No acute distress, nontoxic not in acute distress EYES: EOMI HEENT: Normocephalic, atraumatic,? oral mucosa dry, airway patent RESPIRATORY: No respiratory distress Clear to auscultation bilaterally with no rhonchi wheezing or rales. CARDIOVASCULAR: Regular rate and rhythm without murmurs rubs or gallops. ABDOMINAL: Soft, nontender, nondistended, no rebound or guarding G-tube in-situ MUSCULOSKELETAl: Moves all extremities. No clubbing, cyanosis or edema. NEURO: Awake and alert. Following commands, speech normal, no focal deficits intermittently confused SKIN:: Warm, dry. No rashes lesions or abrasions PSYCHIATRIC: Normal affect/mood, Objective Data Vital Signs Vital Signs: Vital Signs - 24 hr 06/09/22 18:00 06/09/22 21:57 06/10/22 01:39 Temperature 98.5 F 98.2 F 97.5 F L Pulse Rate 94 97 95 Respiratory Rate 18 18 18 Blood Pressure 140/77 143/78 H 142/77 H Pulse Oximetry 98 96 96 Oxygen Delivery 06/10/22 06:00 06/10/22 09:58 06/10/22 08:00 Temperature 100.0 F H 98.5 F Pulse Rate 113 H 95 Respiratory Rate 16 18 Blood Pressure 135/76 130/70 Pulse Oximetry 93 97 Oxygen Delivery Room Air 06/10/22 13:29 Temperature 98 F Pulse Rate 90 Respiratory Rate 16 Blood Pressure 115/68 Pulse Oximetry 99 Oxygen Delivery Intake/Output Intake/Output: Intake & Output 06/07/22 06/08/22 06/09/22 06/10/22 23:59 23:59 23:59 23:59 Intake Total 1120 2470 3548 1860 Output Total 588 714 6125 Balance 1120 1617 2798 860 Meds/Results Medications: Active Medications Generic Name Dose Route Start Last Admin Trade Name Freq PRN Reason Stop Dose Admin Dextrose 12.5 gm 06/08/22 01:56 Dextrose 50% 25 Gm/50 Ml Syringe IV PUSH PRN PRN Hypoglycemia Protocol Glucagon 1 mg 06/08/22 01:56 Glucagon For Inj 1 Mg Vial IM PRN PRN Hypoglycemia Protocol Glucose 15 gm 06/08/22 01:56 Glucose Oral Gel 15 Gm Of Glucse In 37.5 Gm Tu
[2022-06-10 18:32] LABS: Glucose Point of Care 231 mg/dl (65-105)
[2022-06-10] MEDS: INSULIN GLARGINE (*BKC) 100 UNITS/ML SUB-Q (20:35)
[2022-06-11 00:02] VITALS: BP 135/82; PULSE 104; RESP 20; TEMP 36.8; O2SAT 95
[2022-06-11 04:49] VITALS: BP 151/80; PULSE 97; RESP 20; TEMP 37.2; O2SAT 94
[2022-06-11 05:35] LABS: Alanine Aminotransferase 14 U/L (6-50); Albumin Level 3.2 g/dL (3.5-5.1); Alkaline Phosphatase 71 U/L (38-126); Anion Gap 2 mmol/L (8-16); Aspartate Amino Transferase 24 U/L (17-59); Bilirubin,Total 0.5 mg/dL (0.2-1.3); Blood Urea Nitrogen 16 mg/dL (9-20); Calcium 8.6 mg/dL (8.4-10.2); Carbon Dioxide 31 mmol/L (22-30); Chloride 98 mmol/L (98-107); Estimated CRCL calculation 58 ml/min; Estimated Glomerular Filt Rate > 60; Glucose 182 mg/dL (65-110); Magnesium 1.8 mg/dL (1.6-2.3); Potassium 3.5 mmol/L (3.4-5.0); Sodium 131 mmol/L (137-145)
[2022-06-11 05:59] LABS: Basophils Percent Auto 0.9 % (0.2-1.2); Eosinophils Percent Auto 1.3 % (0-4.4); Hematocrit 26.7 % (42.0-52.0); Hemoglobin 9.4 g/dL (14.0-18.0); Immature Granulocyte Absolute 0.04 K/mm3 (0.00-0.031); Immature Granulocyte Percent A 1.3 % (0-0.5); Lymphocytes Absolute Auto 0.85 K/mm3 (0.9-3.2); Lymphocytes Percent Auto 26.8 % (18.3-44.2); Mean Corpuscular HGB Conc 35.2 g/dl (32-36); Mean Corpuscular Hemoglobin 30.9 pg (26-34); Mean Corpuscular Volume 87.8 fl (80-100); Mean Platelet Volume 8.8 fl (7.4-10.4); Monocytes Absolute Auto 0.5 K/mm3 (0.1-0.6); Monocytes Percent Auto 15.1 % (2.6-8.5); Neutrophils Absolute Auto 1.7 K/mm3 (1.3-6.7); Neutrophils Percent Auto 54.6 % (45.5-73.1); Platelet Count Result 349 k/mm3 (150-375); Red Blood Count 3.04 M/mm3 (4.6-6.20); Red Cell Distribution Width 15.8 % (11.5-14.5); White Blood Count 3.2 K/mm3 (4.5-10.0)
[2022-06-11] MEDS: HEPARIN SODIUM 5,000 UNITS/ML VIAL 5000 UNITS SUB-Q (08:21)
--- NOTE | 2022-06-11 09:50 | PCPTNOTE ---
Attempted to see patient for PT, however patient refused due to patient anticipating he is will get discharged today.
--- NOTE | 2022-06-11 11:59 | PCNFU ---
Nutrition Follow-Up Complete: Severe Malnutrition related to inadequate protein-energy intake with increased protein energy needs in setting of chronic disease (chemo treatment for tongue cancer) as evidenced by minimal oral intake for > 1-2 months; significant weigth loss of 14% (30 ibs) in 5 weeks. Goal: Meet estimated nutritional needs Patient is progressing towards goals.We will continue current goal. Pt current nutrition is Minced and Moist,Level 5 with Glucerna shakes BID and Tube feeding of [place] 1.2 at 60 ml/hr. Last recorded weight is 82.6 kg. no new weight. Recommend new weight. Bowel Motility:+Bm reported 06/11 Labs Reviewed:Glu 182, Na 131, HCt 26.7,Alb 3.2 Meds Noted:Heparin, Lantus Skin: WNL Additional Notes: Patient current with oral diet of Minced and Moist, Level 5. Tolerating diet, 45-50% of meals. Breakfast 50% of sausage, eggs, Tea and coffee. Tube feedings are also being tolerated at 60 ml/hr. Spoke with hospitalist today. Nutrition Recommendations for discharge: Minced and Moist, Level 5 with Glucerna shakes BID, if patient is unable to consume 50% of meal, bolus tube feedings of Glucerna 240 ml with meals. Tube feedings running at night: 12 hours 7pm-7am of Glucerna 1.2 at 75 ml/hr, providing 1/2 of caloric needs of 1080 kcals/54 gms protein/725 ml water. Flush 50 ml q 4 hours. Monitoring: Will monitor every Tuesday and Tuesday.
--- NOTE | 2022-06-11 12:02 | PM.DS ---
DS: Admitting Diagnosis Discharge Date 06/11/2022 Admitting Diagnosis generalized weakness DS: Discharge Diagnosis Discharge Diagnosis (1) Dehydration: Code(s): E86.0 - Dehydration Status: Acute (2) Essential (primary) hypertension: Code(s): I10 - Essential (primary) hypertension Status: Acute (3) Acute renal insufficiency: Code(s): N28.9 - Disorder of kidney and ureter, unspecified Status: Acute (4) Acute dehydration: Code(s): E86.0 - Dehydration Status: Acute DS: Summary Hospital Course Hospital Course: 81-year-old male patient who has a history of having tongue cancer at the tip of his tongue from HPV infection.? The patient is receiving chemotherapy and he is seen by Dr. Vo add he is also followed by Dr. Castillo for radiation treatment.?Presented with cheif complaints of weight loss and Poor PO intake. Was hypotensive upon admission with LOGAN and hypokalemia. #? Acute Dehydration: 2/2 Poor PO intake GI was consulted Status post PEG tube placement 06/08/2022 Tube feeds running Also on oral diet. Will continue nighttime feeding with oral intake during the daytime with plus-minus bolus feeding # LOGAN+Hypokalemia: LOGAN is improving creatinine of 1.6 on admission Avoid nephrotoxins Supplement potassium with IV fluids Recheck and monitor # Diabetes Mellitus type 2: HBA1C 10 BG check Q6 hours Started on basal bolus regimen sensor technician Adjust Lantus and SSI dosing as needed # Hypertension: Was hypotensive on arrival Holding oral meds for now.? On losartan hydrochlorothiazide at home.? Currently on hold which will be resumed at discharge # head and neck cancer following with Oncology # bicytopenia with anemia and leukopenia Likely due to chemotherapy Continue to monitor No signs of bleeding Monitor H/H # DVT ppx:Hep SQ # Code:Full # Dispo:? Status post PEG tube placement and tolerating tube feeds, PT OT to see.? going to [facility] bed for further rehabilitation Time Spent with Patient Time attestation: Total time spent providing and/or coordinating discharge services: 45 minutes Exam Narrative: APPEARANCE:? No acute distress, nontoxic not in acute distress EYES: EOMI HEENT: Normocephalic, atraumatic,? oral mucosa dry, airway patent RESPIRATORY: No respiratory distress Clear to auscultation bilaterally with no rhonchi wheezing or rales. CARDIOVASCULAR: Regular rate and rhythm without murmurs rubs or gallops. ABDOMINAL: Soft, nontender, nondistended, no rebound or guarding G-tube in-situ MUSCULOSKELETAl: Moves all extremities. No clubbing, cyanosis or edema. NEURO: Awake and alert. Following commands, speech normal, no focal deficits intermittently confused SKIN:: Warm, dry. No rashes lesions or abrasions PSYCHIATRIC: Normal affect/mood, DS: Data Data Completed and Pending Labs on day of discharge: Labs from last 24 hours 06/11/22 06/11/22 06/10/22 04:52 04:52 18:29 WBC 3.2 L RBC 3.04 L Hgb 9.4 L Hct 26.7 L MCV 87.8 MCH 30.9 MCHC 35.2 RDW 15.8 H Plt Count 349 MPV 8.8 Immature Gran % (Auto) 1.3 H Neut % (Auto) 54.6 Lymph % (Auto) 26.8 [place] % (Auto) 15.1 H Eos % (Auto) 1.3 Baso % (Auto) 0.9 Lymph # (Auto) 0.85 L [place] # (Auto) 0.5 Eos # (Auto) 0.0 Baso # (Auto) 0.0 Abs Immat Gran (auto) 0.04 H Absolute Neuts (auto) 1.7 Absolute Nucleated RBC 0.0 Nucleated RBC % 0.0 Sodium 131 L Potassium 3.5 Chloride 98 Carbon Dioxide 31 H Anion Gap 2 L BUN 16 Creatinine 0.90 Estim Creat Clear Calc 58 Estimated GFR > 60 Glucose 182 H POC Capillary Glucose 231 H Calcium 8.6 Magnesium 1.8 Total Bilirubin 0.5 AST 24 ALT 14 Alkaline Phosphatase 71 Total Protein 6.0 L Albumin 3.2 L 06/10/22 11:49 WBC RBC Hgb Hct MCV MCH MCHC RDW Plt Count MPV Immature Gran % (Auto) Neut % (Auto)
[2022-06-11 12:24] LABS: Glucose Point of Care 198 mg/dl (65-105)
== END 2022-06-11 14:09 | disposition swing bed (61) ==
LOC: ANHED 15:30 → ANH2MED 15:41
PROVIDERS: Internal Medicine; Internal Medicine Gastroenterology; Internal Medicine Hematology & Oncology; Nurse Practitioner; Admitting Provider Family Medicine; Emergency Provider Emergency Medicine; PCP Emergency Medicine; Visit Provider Internal Medicine
PROC: 0DH63UZ Insertion of Feeding Device into Stomach, Percutaneous Approach (ICD-10-PCS; CPT 43246; principal; 2022-06-08 12:30)
DX: C01 Malignant neoplasm of base of tongue (principal); C10.9 Malignant neoplasm of oropharynx, unspecified; E86.0 Dehydration; E87.6 Hypokalemia; I95.9 Hypotension, unspecified; I10 Essential (primary) hypertension; N17.9 Acute kidney failure, unspecified; R13.10 Dysphagia, unspecified; D72.819 Decreased white blood cell count, unspecified; D64.9 Anemia, unspecified; Z20.822 Contact with and (suspected) exposure to COVID-19; R79.89 Other specified abnormal findings of blood chemistry; R41.0 Disorientation, unspecified; R63.4 Abnormal weight loss; R53.1 Weakness; E78.2 Mixed hyperlipidemia; G47.33 Obstructive sleep apnea (adult) (pediatric); R73.03 Prediabetes; Z68.26 Body mass index [BMI] 26.0-26.9, adult; Z87.891 Personal history of nicotine dependence; Z86.73 Personal history of transient ischemic attack (TIA), and cerebral infarction without residual deficits; Z86.19 Personal history of other infectious and parasitic diseases; Z79.01 Long term (current) use of anticoagulants; Z79.899 Other long term (current) drug therapy; Z82.49 Family history of ischemic heart disease and other diseases of the circulatory system; Z80.1 Family history of malignant neoplasm of trachea, bronchus and lung; Z83.438 Family history of other disorder of lipoprotein metabolism and other lipidemia
CPT/HCPCS: 36415; 43246; 71045; 77386; 80053; 82607; 82728; 82746; 82948; 83036; 83540; 83550; 83735; 85025; 85610; 85730; 87636; 96361; 96365; 96366; 96375; 97161; 97165; 97530; 97535; 99285; G0378; J0690; J1644; J1815; J2704; J3475; J3480; J7030; J7120

== ENCOUNTER 2022-06-11 14:35 | Inpatient (IN) | payer MEDICARE, SELFPAY ==
[2022-06-11 16:00] VITALS: BP 151/84; PULSE 92; RESP 20; TEMP 36.6; O2SAT 96
--- NOTE | 2022-06-11 16:13 | ADMGEN ---
This patient, Bebo Carpenter, was admitted to 2nd Floor Room 205-1. Patient/family oriented to hospital policies and general routines including ID bracelet, bed and alarms, visiting hours, pain management, procedures, bathroom and other care routines, personal items, smoking policy, room service/diet, and visiting hours. Discussed patient care needs and DC plan to go home. Information on how to activate the Rapid Response Team has been discussed. Patient/Family are encouraged to report perceived risks to care and to ask questions if they do not understand what they are told or what they should do.
[2022-06-11 16:25] VITALS: BMI 27.8
[2022-06-11 16:59] LABS: Glucose Point of Care 172 mg/dl (65-105)
--- NOTE | 2022-06-11 19:28 | PC.NURSE ---
163 bret called floor to tell us she sent db2 systems programmer message about our swing beds and tube feeder.
[2022-06-11] MEDS: INSULIN GLARGINE (*BKC) 100 UNITS/ML 10 UNITS SUB-Q (21:06)
[2022-06-11 21:09] LABS: Glucose Point of Care 170 mg/dl (65-105)
[2022-06-12] VITALS: BP 147/76; PULSE 90; RESP 20; TEMP 36.9; O2SAT 96
[2022-06-12 07:47] LABS: Glucose Point of Care 182 mg/dl (65-105)
--- NOTE | 2022-06-12 07:49 | PM.IMHP ---
H&P: HPI History of Present Illness Date/Time: 06/12/22 07:49 Chief Complaint: rehab/weakness Narrative: this is a 81-year-old male with history of tongue cancer who was currently receiving chemo and radiation. Patient has been losing weight due to poor oral intake. Peg was placed for feedings and hydration. Patient admitted in swing bed for rehabilitation due to decreased balance decreased mobility in severe limited function endurant and/or mobility. The patient denies SOB, CP, palpitation, extremity numbness, lightheadedness, dizziness, constipation, diarrhea, chills, or fever. Patient has no complaints at this time Review of Systems Review of Systems: A 14 organ system Review of Systems was performed and pertinent positives included in the HPI, otherwise remaining ROS is negative. 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 Cataract (lens) fragments in eye following cataract surgery, bilateral Essential (primary) hypertension History of CVA (cerebrovascular accident) Mixed hyperlipidemia Obstructive sleep apnea Surgical History Surgical History (Updated 06/09/22 @ 07:30 by Ulysses Price MD) Surgical history unknown Family History Family History (Updated 06/11/22 @ 16:37 by Teresita Londono RN) Mother Diabetes mellitus Hypertension Heart disease Sibling Family history of cardiovascular disease Cancer of stomach Brain cancer Family history of elevated blood lipids Family history of lung cancer Lung cancer Hypertension Heart disease Father Family history of malignant neoplasm History of cancer of stomach Other Family history of kidney disease Social History Social History (Updated 06/08/22 @ 02:01 by Meseret Ayala NP) Social History: The patient lives with his and has 4 children. The patient used to smoke. Code status full code Smoking packs per day: 1 Smoking cigarettes per day: 20.0 Years smoked: 20 Smoking pack-years: 20.00 Smoking status: Former smoker Tobacco type: cigarettes Second hand tobacco smoke exposure: No Smoking end date: 05/02/1962 Additional smoking assessment comments: smoked on occassion nothing for lengths of time Alcohol intake: former Substance use: never Lack of Transportation: No Lack of Food: Never True Current Housing: I Have Housing Concerned About Future Housing: No Difficulty Paying Gas/Electric Bills: No Difficulty Paying for Meds: No Currently Unemployed: No Education: High School Diploma/GED Difficulty w/ Childcare or Family Care: No Gender identity (if verbalized by the patient): Male Sexual Orientation (if Verbalized by the Patient): Straight or Heterosexual Spiritual care concerns: No Meds Home Medications and Allergies Home Medications Medication Instructions Recorded Confirmed Type atorvastatin 40 mg tablet 40 mg PO DAILY #90 tabs 12/17/21 06/11/22 Rx clopidogrel 75 mg tablet 75 mg PO DAILY 06/11/22 06/11/22 History insulin aspart U-100 100 unit/mL 2 - 5 unit subcut TIDWMEAL #10 mL 06/11/22 06/11/22 Rx subcutaneous solution (Novolog U-100 Insulin aspart) insulin glargine 100 unit/mL 10 unit (0.1 mL) subcut HS #10 mL 06/11/22 06/11/22 Rx subcutaneous solution (Lantus U-100 Insulin) losartan 100 1 tablet PO DAILY 06/11/22 06/11/22 History mg-hydrochlorothiazide 12.5 mg tablet Allergies Allergy/AdvReac Type Severity Reaction Status Date / Time No Known Allergies Allergy Verified 06/08/22 10:31 Vital Signs Vital Signs - 24 hr 06/11/22 16:00 06/12/22 00:00 Temperature 97.8 F 98.4 F Pulse Rate 92 90 Respiratory Rate 20 20 Blood Pressure 151/84 H 147/76 H Pulse Oximetry 96 96 Oxygen Delivery Room Air Room Air Exam Narrative: GENERAL: This is a well-nourished, well-developed patient, in no apparent dis
[2022-06-12 08:00] VITALS: BP 133/76; PULSE 99; RESP 20; TEMP 36.3; O2SAT 94
[2022-06-12] MEDS: hydroCHLOROthiazide 12.5 MG CAPSULE PO (09:38)
[2022-06-12] MEDS: LOSARTAN POTASSIUM 50 MG TABLET 100 MG PO (09:38)
[2022-06-12] MEDS: CLOPIDOGREL BISULFATE 75 MG TABLET PO (09:38)
[2022-06-12] MEDS: ATORVASTATIN 40 MG TABLET PO (09:38)
[2022-06-12] MEDS: DOCUSATE SODIUM 100 MG CAPSULE PO (09:38)
[2022-06-12 12:05] LABS: Glucose Point of Care 212 mg/dl (65-105)
[2022-06-12 16:00] VITALS: BP 117/67; PULSE 82; RESP 18; TEMP 36.4; O2SAT 93
[2022-06-12 17:02] LABS: Glucose Point of Care 127 mg/dl (65-105)
[2022-06-12] MEDS: INSULIN GLARGINE (*BKC) 100 UNITS/ML 10 UNITS SUB-Q (21:00)
[2022-06-12 21:04] LABS: Glucose Point of Care 181 mg/dl (65-105)
[2022-06-12 23:04] VITALS: BP 137/76; PULSE 91; RESP 19; TEMP 36.5; O2SAT 95
[2022-06-13 08:00] VITALS: BP 132/72; PULSE 90; RESP 17; TEMP 35.9; O2SAT 90
[2022-06-13 08:20] LABS: Glucose Point of Care 172 mg/dl (65-105)
[2022-06-13] MEDS: LORATADINE 10 MG TABLET PO (09:31)
[2022-06-13] MEDS: LOSARTAN POTASSIUM 50 MG TABLET 100 MG PO (09:31)
[2022-06-13] MEDS: ATORVASTATIN 40 MG TABLET PO (09:31)
[2022-06-13] MEDS: DOCUSATE SODIUM 100 MG CAPSULE PO (09:31)
[2022-06-13] MEDS: hydroCHLOROthiazide 12.5 MG CAPSULE PO (09:31)
[2022-06-13] MEDS: EUCERIN CREAM 120 GM JAR 1 APPLIC TOPICAL (09:31)
[2022-06-13] MEDS: CLOPIDOGREL BISULFATE 75 MG TABLET PO (09:31)
[2022-06-13 12:04] LABS: Glucose Point of Care 165 mg/dl (65-105)
[2022-06-13 16:00] VITALS: BP 130/73; PULSE 86; RESP 19; TEMP 36; O2SAT 97
[2022-06-13 17:16] LABS: Glucose Point of Care 197 mg/dl (65-105)
[2022-06-13] MEDS: INSULIN GLARGINE (*BKC) 100 UNITS/ML 10 UNITS SUB-Q (20:26)
[2022-06-13 20:30] LABS: Glucose Point of Care 207 mg/dl (65-105)
[2022-06-13 23:32] VITALS: BP 119/82; PULSE 105; RESP 20; TEMP 36.3; O2SAT 94
[2022-06-14 08:00] VITALS: BP 124/75; PULSE 93; RESP 16; TEMP 36.6; O2SAT 95
[2022-06-14 08:16] LABS: Glucose Point of Care 175 mg/dl (65-105)
[2022-06-14] MEDS: hydroCHLOROthiazide 12.5 MG CAPSULE PO (08:47)
[2022-06-14] MEDS: LORATADINE 10 MG TABLET PO (08:47)
[2022-06-14] MEDS: CLOPIDOGREL BISULFATE 75 MG TABLET PO (08:47)
[2022-06-14] MEDS: DOCUSATE SODIUM 100 MG CAPSULE PO ×2 (08:47→21:27)
[2022-06-14] MEDS: ATORVASTATIN 40 MG TABLET PO (08:47)
[2022-06-14] MEDS: LOSARTAN POTASSIUM 50 MG TABLET 100 MG PO (08:48)
[2022-06-14 11:35] LABS: Glucose Point of Care 260 mg/dl (65-105)
[2022-06-14] MEDS: INSULIN HUMAN LISPRO (*BKC) 1,000 UNITS/10 ML VIAL SUB-Q (11:41)
[2022-06-14 16:00] VITALS: BP 128/76; PULSE 90; RESP 16; TEMP 36.4; O2SAT 97
[2022-06-14 16:43] LABS: Glucose Point of Care 174 mg/dl (65-105)
[2022-06-14] MEDS: traZODone HCL 50 MG TABLET PO (21:27)
[2022-06-14] MEDS: INSULIN GLARGINE (*BKC) 1,000 UNITS/10 ML VIAL 10 UNITS SUB-Q (21:33)
[2022-06-14 21:38] LABS: Glucose Point of Care 210 mg/dl (65-105)
[2022-06-15] VITALS: BP 100/56; PULSE 95; RESP 18; TEMP 36.6; O2SAT 95
[2022-06-15 07:42] LABS: Glucose Point of Care 205 mg/dl (65-105)
[2022-06-15 08:00] VITALS: BP 150/88; PULSE 113; RESP 16; TEMP 36.7; O2SAT 94
[2022-06-15] MEDS: INSULIN HUMAN LISPRO (*BKC) 1,000 UNITS/10 ML VIAL SUB-Q ×3 (08:14→17:00)
[2022-06-15] MEDS: LORATADINE 10 MG TABLET PO (08:16)
[2022-06-15] MEDS: ATORVASTATIN 40 MG TABLET PO (08:16)
[2022-06-15] MEDS: LOSARTAN POTASSIUM 50 MG TABLET 100 MG PO (08:16)
[2022-06-15] MEDS: CLOPIDOGREL BISULFATE 75 MG TABLET PO (08:17)
[2022-06-15] MEDS: DOCUSATE SODIUM 100 MG CAPSULE PO ×2 (08:17→21:24)
[2022-06-15] MEDS: hydroCHLOROthiazide 12.5 MG CAPSULE PO (08:17)
[2022-06-15 12:11] LABS: Glucose Point of Care 260 mg/dl (65-105)
[2022-06-15 16:00] VITALS: BP 113/71; PULSE 91; RESP 16; TEMP 36.3; O2SAT 97
[2022-06-15 16:36] LABS: Glucose Point of Care 149 mg/dl (65-105)
--- NOTE | 2022-06-15 18:46 | PC.NURSE ---
assembly worker called the floor and notified nurses that when she collected patient's tray, the trash can was on patient's lap. Fryline Attendant checked the trash can next to patient's chair and found that patient had thrown the food that we thought he ate into the trash. Fryline Attendant calmly explained to patient that he shouldn't do that and asked if it had happened before. Patient denied that it had.
[2022-06-15 21:12] LABS: Glucose Point of Care 162 mg/dl (65-105)
[2022-06-15] MEDS: INSULIN GLARGINE (*BKC) 1,000 UNITS/10 ML VIAL 10 UNITS SUB-Q (21:21)
[2022-06-15 23:58] VITALS: PULSE 92; RESP 18; TEMP 36.3; O2SAT 96
[2022-06-16 07:44] LABS: Glucose Point of Care 195 mg/dl (65-105)
[2022-06-16 07:56] VITALS: BP 109/60; PULSE 97; RESP 14; TEMP 36.4; O2SAT 94
[2022-06-16] MEDS: LOSARTAN POTASSIUM 50 MG TABLET 100 MG PO (09:20)
[2022-06-16] MEDS: LORATADINE 10 MG TABLET PO (09:21)
[2022-06-16] MEDS: CLOPIDOGREL BISULFATE 75 MG TABLET PO (09:21)
[2022-06-16] MEDS: ATORVASTATIN 40 MG TABLET PO (09:22)
[2022-06-16] MEDS: DOCUSATE SODIUM 100 MG CAPSULE PO (09:22)
[2022-06-16] MEDS: hydroCHLOROthiazide 12.5 MG CAPSULE PO (09:23)
--- NOTE | 2022-06-16 09:26 | PC.NURSE ---
Lynda at Pharmacy notified that the 12.5 mg HCT for this pt will not scan.
[2022-06-16 11:42] LABS: Glucose Point of Care 270 mg/dl (65-105)
[2022-06-16] MEDS: INSULIN HUMAN LISPRO (*BKC) 1,000 UNITS/10 ML VIAL SUB-Q ×2 (12:00→17:41)
--- NOTE | 2022-06-16 13:33 | PM.EVENT ---
Event Note Event Note Event Note: Patient is going to be discharged home with tube feeding running at night for 12 hours 7p-7a of Glucerna 1.2 @75 ml/hr or equivalent, Providing 1/2 of caloric need of 1080kcal/54gm protein 725 ml water. Flush with 50 m; of water every 4 hours. Recommend him using a pump for feeding. Bebo will need tubing for 90 days or greater. He is also to drink Glucerna shake with every meal.Patient needs to stick with this due to hga1c was greater than 10. Mr. Lagunas will also need a 2 wheeled walker to help keep balance when walking to prevent falls.
[2022-06-16 16:00] VITALS: BP 108/63; PULSE 94; RESP 14; TEMP 36.6; O2SAT 94
[2022-06-16 16:29] LABS: Glucose Point of Care 224 mg/dl (65-105)
[2022-06-16] MEDS: INSULIN GLARGINE (*BKC) 1,000 UNITS/10 ML VIAL 10 UNITS SUB-Q (21:09)
[2022-06-16 21:13] LABS: Glucose Point of Care 241 mg/dl (65-105)
[2022-06-16 23:02] VITALS: BP 105/60; PULSE 102; RESP 15; TEMP 36.4; O2SAT 94
--- NOTE | 2022-06-17 05:42 | PC.NURSE ---
Pt found disconnecting his feeding tube from the feeding pump independently, but not reconnecting the tubing back up after using the urinal. Bed linens changed due to Glucerna being all over sheets and blankets. Discussion had w/pt about why it is important to call for assistance, and why the tubing needs to be reconnected. Pt verbalized understanding, but reinforcement is needed.
[2022-06-17 08:00] VITALS: BP 110/68; PULSE 80; RESP 14; TEMP 36.6; O2SAT 97
[2022-06-17 08:02] LABS: Glucose Point of Care 151 mg/dl (65-105)
[2022-06-17] MEDS: DOCUSATE SODIUM 100 MG CAPSULE PO (09:22)
[2022-06-17] MEDS: CLOPIDOGREL BISULFATE 75 MG TABLET PO (09:22)
[2022-06-17] MEDS: hydroCHLOROthiazide 12.5 MG CAPSULE PO (09:22)
[2022-06-17] MEDS: ATORVASTATIN 40 MG TABLET PO (09:22)
[2022-06-17] MEDS: LORATADINE 10 MG TABLET PO (09:23)
[2022-06-17] MEDS: LOSARTAN POTASSIUM 50 MG TABLET 100 MG PO (09:23)
[2022-06-17 11:40] LABS: Glucose Point of Care 299 mg/dl (65-105)
[2022-06-17] MEDS: INSULIN HUMAN LISPRO (*BKC) 1,000 UNITS/10 ML VIAL SUB-Q (12:05)
[2022-06-17] MEDS: ACETAMINOPHEN 325 MG TABLET 650 MG PO (12:37)
[2022-06-17 16:35] VITALS: BP 121/70; PULSE 85; RESP 16; TEMP 36.4; O2SAT 97
[2022-06-17 17:08] LABS: Glucose Point of Care 125 mg/dl (65-105)
[2022-06-17] MEDS: INSULIN GLARGINE (*BKC) 1,000 UNITS/10 ML VIAL 10 UNITS SUB-Q (21:38)
[2022-06-17 21:42] LABS: Glucose Point of Care 213 mg/dl (65-105)
[2022-06-17 23:01] VITALS: BP 122/73; PULSE 96; RESP 19; TEMP 36.5; O2SAT 98
[2022-06-18 07:42] LABS: Glucose Point of Care 176 mg/dl (65-105)
[2022-06-18 08:00] VITALS: BP 108/67; PULSE 97; RESP 14; TEMP 36.4; O2SAT 93
[2022-06-18] MEDS: DOCUSATE SODIUM 100 MG CAPSULE PO (09:00)
[2022-06-18] MEDS: LOSARTAN POTASSIUM 50 MG TABLET 100 MG PO (09:00)
[2022-06-18] MEDS: CLOPIDOGREL BISULFATE 75 MG TABLET PO (09:00)
[2022-06-18] MEDS: ATORVASTATIN 40 MG TABLET PO (09:00)
[2022-06-18] MEDS: LORATADINE 10 MG TABLET PO (09:00)
[2022-06-18] MEDS: hydroCHLOROthiazide 12.5 MG CAPSULE PO (09:00)
--- NOTE | 2022-06-18 10:29 | PM.DS ---
DS: Admitting Diagnosis Discharge Date 06/18/2022 Admitting Diagnosis Weakness, REhab DS: Discharge Diagnosis Discharge Diagnosis (1) Weakness: Code(s): R53.1 - Weakness Status: Acute Assessment and Plan: Home health with physical therapy (2) PEG (percutaneous endoscopic gastrostomy) status: Code(s): Z93.1 - Gastrostomy status Status: Acute Assessment and Plan: tube feeding running at night for 12 hours 7p-7a of Glucerna 1.2 @75 ml/hr or equivalent, Providing 1/2 of caloric need of? 1080kcal/54gm protein 725 ml water. Flush with 50 m; of water every 4 hours. Recommend him using a pump for feeding.? Drink Glucerna shake with every meal. 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 Patient comes from [facility] he had been losing weight in poor oral intake patient has a history of tongue cancer and has been receiving chemo radiation while at the hospital patient received a PEG tube for feeding and hydration. Patient came to us for PT for endurance and due to his severe limited function and endurance to mobility patient has improved he will still need follow-up as an outpatient. Patient will be seen by his oncologist well as his primary care provider. Patient has remained afebrile denies any lightheadedness dizziness constipation and/or diarrhea this time patient will be discharging home. tube feeding running at night for 12 hours 7p-7a of Glucerna 1.2 @75 ml/hr or equivalent, Providing 1/2 of caloric need of? 1080kcal/54gm protein 725 ml water. Flush with 50 m; of water every 4 hours. Recommend him using a pump for feeding.? Drink Glucerna shake with every meal. Time Spent with Patient Time attestation: Total time spent providing and/or coordinating discharge services: Exam Narrative: GENERAL: This is a well-nourished, well-developed patient, in no apparent distress. HEAD: normocephalic, atraumatic. EYES: PERRL. Sclera clear/white. Vision is grossly intact. EARS: External ears normal, Hearing grossly intact. NOSE: External nose normal with no obvious nasal discharge THROAT: Mucous membranes moist CARDIOVASCULAR: Regular rate and rhythm RESPIRATORY: Clear to auscultation. Breath sounds equal bilaterally. No wheezes, rales, or rhonchi.? GASTROINTESTINAL: Abdomen soft, non-tender, nondistended. Bowel sounds are active. No guarding. peg in place SKIN: warm, intact with no suspicious lesions or rash, good texture and turgor. NEURO: awake, alert, and oriented to person, place and time. EXTREMITIES: Normal range of motion.? No edema. No calf tenderness. DS: Data Data Completed and Pending Labs on day of discharge: Labs from last 24 hours 06/18/22 06/17/22 06/17/22 07:40 21:37 16:59 POC Capillary Glucose 176 H 213 H 125 H 06/17/22 11:35 POC Capillary Glucose 299 H Discharge Plan Discharge Attending physician on discharge: Kashif Mar Consulting providers: Elizabeth Kamara ; Ada Bermudez Discharging Clinician: Ada Bermudez Anticipated Discharge Date/Time: 06/18/22 09:35 Patient Disposition: Home Health Service Activity: may shower and no driving Diet: post-gastrectomy and other - s
--- NOTE | 2022-06-18 12:07 | PC.NURSE ---
Ruiz here and instructed pt and regarding tube feedings, pump operation and how to reorder supplies. RN reinforced the education. Rn instructed them regarding the insulin instructions, when and how to test the blood sugar. Orders for insulin, blood glucose monitor, lancets, strips and alcohol pads sent to [facility] in [place]. RN asked if they had any questions and they stated no questions. [facility] notified of pt's discharge. Pt assisted to the car via WC and RN.
--- NOTE | 2022-06-22 12:58 | PC.NURSE ---
Unable to contact for discharge call back.
== END 2022-06-18 11:40 | disposition home health service (06) | DRG 948 ==
PROVIDERS: Admitting Provider Internal Medicine; PCP Emergency Medicine; Visit Provider Internal Medicine
DX: R53.1 Weakness (principal); C02.9 Malignant neoplasm of tongue, unspecified; I10 Essential (primary) hypertension; E78.5 Hyperlipidemia, unspecified; G47.33 Obstructive sleep apnea (adult) (pediatric); Z86.73 Personal history of transient ischemic attack (TIA), and cerebral infarction without residual deficits; Z93.1 Gastrostomy status; Z87.891 Personal history of nicotine dependence
CPT/HCPCS: 82948; 97110; 97161; 97165; 97530; 97535; A9270; J1815

== ENCOUNTER 2022-06-30 11:26 | Emergency (ER) | payer MEDICARE, SELFPAY ==
[2022-06-30 11:29] VITALS: BP 93/47; PULSE 83; RESP 18; TEMP 36.3; O2SAT 97
--- NOTE | 2022-06-30 13:40 | PC.NURSE ---
PT AND FAMILY DIDN'T WANT TO WAIT ANY LONGER. STATES THEY WILL BE GOING TO [place] FOR EVALUATION. ADVISED TO RETURN IF CONDITION WORSENS
== END 2022-06-30 13:40 | disposition left against medical advice (07) ==
LOC: ANHED 13:59
PROVIDERS: PCP Emergency Medicine
DX: Z53.21 Procedure and treatment not carried out due to patient leaving prior to being seen by health care provider (principal)
CPT/HCPCS: 99199

== ENCOUNTER 2022-06-30 15:29 | Emergency (ER) | payer MEDICARE, SELFPAY ==
[2022-06-30] VITALS (32 sets, daily range): BP systolic 103–124; BP diastolic 60–72; PULSE 82–97; RESP 14–41; TEMP 36.3; O2SAT 96–100
--- NOTE | ~2022-06-30 | CT_ITS ---
EXAMINATION: CT brain wo con DATE: 06/30/2022 16:12 INDICATION: Diplopia. TECHNIQUE: Computed tomography (CT) of the head was performed without intravenous contrast. The mA wa s adjusted according to patient size. Iterative reconstruction technique was employed. The dose-lengt h product was 605.33 mGy-cm. COMPARISON: Head CT 06/17/2015, brain MRI 07/04/15 FINDINGS: There is old infarct in the left cerebellum. There are old infarcts in the bilateral basal ganglia and left thalamus. There are scattered areas of low attenuation in the cerebral white matter. There is an old infarct in the left occipital lobe. There is an old infarct in left frontoparietal r egion. The ventricles are normal in size. There are likely changes of ocular lens replacement surgeri es. There is mucosal thickening in the paranasal sinuses. There is a trace right mastoid effusion. IMPRESSION: 1. Multiple old infarcts in the brain. 2. Moderate nonspecific cerebral white matter disease, which likely represents chronic small vessel i schemic disease. Reviewed, dictated and finalized at location A. TIVE RESTORER IMPRESSION: 1. Multiple old infarcts in the brain. 2. Moderate nonspecific cerebral white matter disease, which likely represents chronic small vessel ischemic disease.
--- NOTE | 2022-06-30 15:37 | ECG_ITS ---
Measurements Intervals [place] Rate: 89 P: 19 [place]: 192 QRS: -25 QRSD: 152 T: 63 QT: 379 QTc: 462 Interpretive Statements SINUS RHYTHM ATRIAL PREMATURE COMPLEX LEFT BUNDLE BRANCH BLOCK BASELINE ARTIFACT- I, II, III, AVR, AVL, V1, V4-V6 ABNORMAL ECG NO PREVIOUS ECG AVAILABLE FOR COMPARISON Electronically Signed On 06-30-2022 18:50:50 HOUSEHOLD PERSONAL ASSISTANT by Candido Cardenas D.O.
--- NOTE | 2022-06-30 15:42 | ED.NEUROSD ---
HPI - Neuro Symptoms/Deficit General Chief Complaint: Neuro Symptoms/Deficit Stated Complaint: double vision Time Seen by Provider: 06/30/22 15:36 History of Present Illness HPI Narrative: Pt was getting radiation treatment today at outside hospital noted blurred vision at around 0930, Pt completed radiation and was noted that left eye was abnormal on way to car and pt sent to ER there. Pt left without being seen and came here. Pt denies MARIO. Pt complains of double vision in left eye. says the patient has had an intermittent posterior right MARIO since start of radiation treatment. 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 Cataract (lens) fragments in eye following cataract surgery, bilateral Essential (primary) hypertension History of CVA (cerebrovascular accident) Mixed hyperlipidemia Obstructive sleep apnea Surgical History Surgical History Surgical history unknown Family History Family History Mother Diabetes mellitus Hypertension Heart disease Sibling Family history of cardiovascular disease Cancer of stomach Brain cancer Family history of elevated blood lipids Family history of lung cancer Lung cancer Hypertension Heart disease Father Family history of malignant neoplasm History of cancer of stomach Other Family history of kidney disease Social History Social History Social History: The patient lives with his and has 4 children. The patient used to smoke. Code status full code Smoking packs per day: 1 Smoking cigarettes per day: 20.0 Years smoked: 20 Smoking pack-years: 20.00 Smoking status: Former smoker Tobacco type: cigarettes Second hand tobacco smoke exposure: No Smoking end date: 05/02/1962 Additional smoking assessment comments: smoked on occassion nothing for lengths of time Alcohol intake: former Substance use: never Lack of Transportation: No Lack of Food: Never True Current Housing: I Have Housing Concerned About Future Housing: No Difficulty Paying Gas/Electric Bills: No Difficulty Paying for Meds: No Currently Unemployed: No Education: High School Diploma/GED Difficulty w/ Childcare or Family Care: No Gender identity (if verbalized by the patient): Male Sexual Orientation (if Verbalized by the Patient): Straight or Heterosexual Spiritual care concerns: No Exam Const: General: healthy appearing and no acute distress Nutritional Appearance: well nourished Orientation/consciousness: patient oriented x3 Limitations: no limitations HENMT: Head: normal to inspection Eyes: Conjunctivae: conjunctivae normal Pupils: Equal, round and reactive pupils present Neck: Neck: normal visual inspection Resp: Effort & Inspection: normal respiratory effort Auscultation: clear to auscultation bilaterally Cardio: Rate: regular rate Rhythm: regular rhythm GI: GI Palp: Yes Soft to palpation and No Tenderness to palpation present (GI) Auscultation: normal bowel sounds Skin: General skin exam: normal color Neuro: General: patient oriented x3, moves all extremities and no focal motor deficits
[2022-06-30 15:55] LABS: Basophils Absolute Auto 0.05 K/mm3 (0.00-0.10); Basophils Percent Auto 0.5 % (0.0-1.0); Eosinophils Absolute Auto 0.18 K/mm3 (0.02-0.50); Eosinophils Percent Auto 1.9 % (1.0-6.0); Hematocrit 31.5 % (37.0-46.0); Hemoglobin 11.1 g/dL (12.4-15.3); Immature Granulocyte Absolute 0.04 K/mm3 (0.00-0.00); Immature Granulocyte Percent A 0.4 % (0.0-0.0); Lymphocytes Absolute Auto 1.33 K/mm3 (1.10-4.50); Lymphocytes Percent Auto 14.3 % (18.0-42.0); Mean Corpuscular HGB Conc 35.2 g/dL (32.0-36.0); Mean Corpuscular Hemoglobin 32.8 pg (27.0-31.0); Mean Corpuscular Volume 93.2 fL (78.0-102.0); Monocytes Absolute Auto 0.72 K/mm3 (0.10-0.90); Monocytes Percent Auto 7.7 % (2.0-11.0); Neutrophils Percent Auto 75.2 % (50.0-70.0); Platelet Count Result 197 K/mm3 (150-420); Red Blood Count 3.38 M/mm3 (4.70-6.10); Red Cell Distribution Width 16.8 % (11.6-14.4); White Blood Count 9.3 K/mm3 (4.8-10.8)
[2022-06-30 16:10] LABS: Alanine Aminotransferase 19 U/L (16-63); Albumin Level 3.5 g/dL (3.4-5.0); Alkaline Phosphatase 78 U/L (46-116); Anion Gap 9 mmol/L (8-16); Aspartate Amino Transferase 15 U/L (15-37); Bilirubin,Total 0.7 mg/dL (0.00-1.00); Blood Urea Nitrogen 36 mg/dL (7-18); Calcium 9.6 mg/dL (8.5-10.1); Carbon Dioxide 31 mmol/L (21-32); Chloride 94 mmol/L (98-108); Estimated CRCL calculation 33 ml/min; Estimated Glomerular Filt Rate 41; Glucose 146 mg/dL (70-99); Osmolality Calculated 289 mOsm/kg (285-295); Partial Thromboplastin Time 23.3 SEC (23.90-30.70); Potassium 3.7 mmol/L (3.5-5.1); Prothrombin Time 10.8 Seconds (9.50-12.10); Sodium 134 mmol/L (136-145); Total Protein 7.6 g/dL (6.4-8.2)
--- NOTE | 2022-06-30 18:28 | PC.NURSE ---
PT UP TO BEDSIDE TO USE URINAL WITH ASSISTANCE. PT CONTINUES TO AWAIT ROOM ASSIGNMENT AT [facility] FOR TRANSFER. NO CHANGE IN STATUS. AT BEDSIDE. VSS. WILL CONTINUE TO MONITOR.
[2022-06-30 18:34] LABS: SARS-CoV-2 RNA PCR Negative (Negative)
--- NOTE | 2022-06-30 19:47 | PC.NURSE ---
Attempted to call [facility] for pt transport. [facility] states they are unable to transport.
== END 2022-06-30 20:15 | disposition short-term general hospital (02) ==
PROVIDERS: Emergency Provider Emergency Medicine; PCP Emergency Medicine
DX: H51.22 Internuclear ophthalmoplegia, left eye (principal); I10 Essential (primary) hypertension; E78.2 Mixed hyperlipidemia; Z86.73 Personal history of transient ischemic attack (TIA), and cerebral infarction without residual deficits; Z87.891 Personal history of nicotine dependence; Z79.01 Long term (current) use of anticoagulants; Z20.822 Contact with and (suspected) exposure to COVID-19
CPT/HCPCS: 36415; 70450; 80053; 85025; 85610; 85730; 93005; 99284; 99285; U0003; U0005

== ENCOUNTER 2022-07-09 09:21 | Emergency (ER) | payer MEDICARE, SELFPAY ==
[2022-07-09] VITALS (64 sets, daily range): BP systolic 76–115; BP diastolic 40–67; PULSE 91–132; RESP 15–35; TEMP 36.4–37.6; O2SAT 87–99
--- NOTE | ~2022-07-09 | XR_ITS ---
EXAMINATION: XR knee LT 3V DATE: 07/09/2022 10:57 INDICATION: Left knee swelling. TECHNIQUE: 3 views of left knee were obtained. COMPARISON: None. FINDINGS: Bone alignment is normal. No fracture. There is moderate osteoarthritis of medial and luo lofemoral compartments and mild osteoarthritis of lateral compartment. There is a small knee joint ef fusion. IMPRESSION: 1. Moderate left knee osteoarthritis. 2. Small left knee joint effusion. Reviewed, dictated and finalized at location A. LOPMENT SYSTEM EFFICIENCY MANAGER
--- NOTE | ~2022-07-09 | CT_ITS ---
EXAMINATION: CT brain wo con DATE: 07/09/2022 10:56 INDICATION: Patient fell and struck head.] Altered mental status after injury, subsiding after arriva l emergency room. Patient taking Plavix. TECHNIQUE: Computed tomography (CT) of the head was performed without intravenous contrast. The mA wa s adjusted according to patient size. Iterative reconstruction technique was employed. Exam dose: 60 5.33 mGy-cm total exam DLP. COMPARISON: 06/30/2022 CT brain FINDINGS: Bilateral carotid siphon internal carotid artery calcifications. There is nonspecific dimin ished attenuation cerebral white matter, likely due to chronic small vessel ischemic changes. Old left cerebellar hemispheric infarct. Small focal chronic infarct high over the left frontoparietal convexity. Bilateral basal ganglia and left thalamic chronic lacunar infarcts. No recent cerebrovascular accident is detected. No intracranial mass lesion or hemorrhage, midline sh ift or mass effect. No subdural or epidural hematoma. No subdural hematoma is identified. No skull fracture or bone destr uction is detected. Minimal posterior left ethmoid air cell soft tissue thickening. Included paranasal sinuses and mastoi d air cells are otherwise unremarkable. IMPRESSION: No skull fracture or acute intracranial finding or significant change since 06/30/2022 Reviewed, dictated and finalized at Location [facility]. Reviewed, dictated and finalized at location B. [employer] IMPRESSION: No skull fracture or acute intracranial finding or significant josefa nge since 06/30/2022
--- NOTE | ~2022-07-09 | XR_ITS ---
EXAMINATION: XR chest 1V portable DATE: 07/09/2022 10:57 INDICATION: Weakness. TECHNIQUE: A single frontal view of the chest was obtained on 2 radiographs. COMPARISON: Chest single view 06/07/2022, PET/CT 03/23/2022 FINDINGS: There is elevation of right hemidiaphragm. No pneumonia, pleural effusion, or pneumothorax. The heart size is normal. IMPRESSION: 1. Stable elevation of right hemidiaphragm. Reviewed, dictated and finalized at location A. [employer]
--- NOTE | 2022-07-09 09:53 | ED.GENADULT ---
HPI - General Adult General Chief complaint: Fall Stated complaint: fall left knee pain Time Seen by Provider: 07/09/22 09:27 History of Present Illness HPI narrative: The patient is a 81-year-old male with multiple comorbidities, see below. He does have diabetes, has history of acute kidney injury, hyperlipidemia, hypertension, mini strokes, on tube feeds. 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 He is fed by G-tube. He also takes liquids by mouth. He has free water flushes, but only 60 cc, t.i.d.. The patient was seen here on 06/30/2022, 9 days ago. He was diagnosed with internuclear ophthalmoplegia. Head CT did not reveal any acute findings. He was transferred for admission elsewhere. He has been discharged home since that time. EMS was notified today after the woke up at home and found the patient sitting on the couch, who subsequently slid off the couch and hit his head on the feeding tube pole. Initially the mental status was somewhat confused but now the states he is back to baseline. Patient feels okay and has no significant complaints except left knee pain. Upon arrival, the blood pressure by EMS was 77/50. Upon arrival here, the blood pressure was as low as 76/49. Yesterday, the patient only had 1 bottle of water and 1 cup of tea and no other oral intake. Only tube feeds. Also with only 3 boluses of 60 cc of free water flushes. The confusion is back to baseline. No other complaints at this time. No chest pain. No abdominal pain. Related Data Home Medications Medication Instructions Recorded Confirmed clopidogrel 75 mg tablet 75 mg PO DAILY 06/11/22 07/09/22 atorvastatin 80 mg tablet 80 mg PO DAILY 07/09/22 07/09/22 losartan 25 mg tablet 12.5 mg PO DAILY 07/09/22 07/09/22 metformin 500 mg tablet,extended 500 mg PO DAILY 07/09/22 07/09/22 release 24 hr metoprolol succinate 25 mg 12.5 mg PO DAILY 07/09/22 07/09/22 tablet,extended release 24 hr Allergies Allergy/AdvReac Type Severity Reaction Status Date / Time No Known Allergies Allergy Verified 07/09/22 09:58 Review of Systems Review of Systems: All systems reviewed & are unremarkable except as noted in HPI and below Constitutional: Constitutional: Reports as per HPI, Reports no additional constitutional complaints, Denies chills, Denies excessive sweating, Reports fatigue ( Baseline), Denies fever(s), Denies headache(s) and Reports weakness ( generalized, baseline) Eyes: Eyes: Reports as per HPI, Reports no additional eye complaints, Denies change in vision and Denies photophobia ENT: Reports system reviewed and no additional complaints, except as documented, Reports as per HPI, Denies dysphagia, Denies vertigo, Denies dizziness, Denies headache(s), Denies lip swelling, Denies nasal congestion, Denies sore throat, Denies throat swelling and Denies tongue swelling Cardiovascular: Cardiovascular: Reports as per HPI, Reports no additional cardiovascular complaints, Denies chest pain, Denies syncope, Denies rapid heart rate and Denies dyspnea Respiratory: Respiratory: Reports as per HPI, Reports no additional respiratory complaints, Denies chest congestion, Denies cough, Denies dyspnea and Denies wheezing Gastrointestinal: Gastrointestinal: Reports as per HPI, Reports no additional gastrointestinal complaints, Denies abdominal pain, Denies constipation, Denies dysphagia, Denies diarrhea, Denies nausea and Denies vomiting Genitourinary: Genitourinary: Reports as per HPI, Denies hematuria, Denies oliguria, Denies dysuria, Denies urinary frequency, Denies urinary incontinence and Denies urinary urgency Musculoskeletal: Musculoskeletal: Reports no additional musculoskeletal complaints, Denies back pain, Denies myalgias, Reports arthralgias ( left knee pain), Denies joint swelling and Denies numbness Integumentary/Breasts: Skin/Breast: Reports system reviewed and no additional complai
[2022-07-09] MEDS: SODIUM CHLORIDE 0.9% IV 1,000 ML 999 ML IV CONT ×3 (09:57→13:11)
--- NOTE | 2022-07-09 10:06 | ECG_ITS ---
Measurements Intervals [place] Rate: 102 P: 179 SC: 99 QRS: -4 QRSD: 146 T: 137 QT: 361 QTc: 471 Interpretive Statements SINUS TACHYCARDIA ATRIAL PREMATURE COMPLEX LEFT BUNDLE BRANCH BLOCK BASELINE ARTIFACT- II, III, AVR, AVL, AVF ABNORMAL ECG COMPARED TO ECG 06/30/2022 16:26:43 SINUS TACHYCARDIA NOW PRESENT Electronically Signed On 07-09-2022 10:33:52 DISH CARRIER by Candido Cardenas D.O.
[2022-07-09 10:29] LABS: Hematocrit 26.7 % (37.0-46.0); Hemoglobin 9.3 g/dL (12.4-15.3); Mean Corpuscular HGB Conc 34.8 g/dL (32.0-36.0); Mean Corpuscular Hemoglobin 33.5 pg (27.0-31.0); Mean Platelet Volume 8.7 fl (8.7-11.0); Platelet Count Result 131 K/mm3 (150-420); Red Blood Count 2.78 M/mm3 (4.70-6.10)
[2022-07-09 10:30] LABS: White Blood Count 20.6 K/mm3 (4.8-10.8)
--- NOTE | 2022-07-09 10:30 | PC.NURSE ---
elevated WBC, 20.6, erp is notified.
[2022-07-09 10:45] LABS: Alanine Aminotransferase 67 U/L (16-63); Albumin Level 2.7 g/dL (3.4-5.0); Alkaline Phosphatase 95 U/L (46-116); Amylase 29 U/L (25-115); Anion Gap 12 mmol/L (8-16); Aspartate Amino Transferase 71 U/L (15-37); Bilirubin,Total 0.6 mg/dL (0.00-1.00); Blood Urea Nitrogen 32 mg/dL (7-18); Calcium 8.7 mg/dL (8.5-10.1); Carbon Dioxide 24 mmol/L (21-32); Chloride 104 mmol/L (98-108); Creatine Kinase 96 U/L (39-308); Estimated CRCL calculation 29 ml/min; Estimated Glomerular Filt Rate 35; Glucose 233 mg/dL (70-99); Lipase 30 U/L (16-77); Magnesium 1.6 mg/dL (1.8-2.4); Osmolality Calculated 303 mOsm/kg (285-295); Sodium 140 mmol/L (136-145); Total Protein 5.7 g/dL (6.4-8.2)
--- NOTE | 2022-07-09 10:46 | PC.NURSE ---
elevated troponin 814.7, erp is notified.
[2022-07-09 10:47] LABS: Troponin I 814.7 ng/L (0.00-60.4)
[2022-07-09 10:48] LABS: Lactic Acid Reflex 4.7 mmol/L (0.4-2.0)
[2022-07-09 10:54] LABS: Band Neutrophils Percent 22 % (0-6); Basophils Percent Manual 0 % (0-1); Eosinophils Percent Manual 0 % (1-6); Lymphocytes Percent Manual 1 % (18-44); Metamyelocytes Percent 2 %; Monocytes Absolute Manual 0.41 K/mm3 (0.1-0.90); Monocytes Percent Manual 2 % (3-9); Neutrophils Absolute Manual 19.57 K/mm3 (1.3-6.7); Neutrophils Percent Manual 73 % (46-73); Platelet Estimate Adequate (Adequate); Total Cells Counted 100
[2022-07-09 11:02] LABS: Influenza A QL RT-PCR Negative (Negative); Influenza B QL RT-PCR Negative (Negative); SARS-CoV-2 RNA PCR Negative (Negative)
[2022-07-09 11:04] LABS: RSV RNA, RT-PCR Negative (Negative)
[2022-07-09] MEDS: SODIUM CHLORIDE 0.9% IV 1,000 ML 150 ML IV CONT (11:59)
[2022-07-09 12:10] LABS: Bilirubin Urine Negative (Negative); Blood Urine 2+ (Negative); Color Urine Yellow (Yellow); Glucose Urine UA Negative (Negative); Ketones Urine Trace (Negative); Leukocyte Esterase Ur 2+ LEU/UL (Negative); Nitrate Urine Positive (Negative); Protein Urine 1+ (Negative); Specific Grav Ur 1.025 (1.010-1.020); pH Urine 5.5 (5.0-8.0)
[2022-07-09 12:20] LABS: Add Urine Microscopic? YES; Appearance Urine Cloudy (Clear); Bacteria Urine 3+ /hpf; Squamous Epithelial Cell Urine Rare /hpf (Few); WBC Urine 16-20 /hpf (0-3)
[2022-07-09] MEDS: MAGNESIUM SULF 2 GM/WATER 50ML 2 GM/50 ML BAG IVPB (12:39)
[2022-07-09] MEDS: NOREPINEPHRINE 8 MG/D5W 250 ML 8 MG/250 ML BAG 9.38 MG IV CONT (13:13)
[2022-07-09 13:25] LABS: Reflex Lactic Acid Yes or No Add Lactic
--- NOTE | 2022-07-09 13:50 | PC.NURSE ---
per erp drop norepinephrine to 4mcg/hr
--- NOTE | 2022-07-09 13:51 | PC.NURSE ---
per erp drop norepinephrine to 4 mcg/min
--- NOTE | 2022-07-09 13:58 | PC.NURSE ---
per erp drop norepinephrine to 3 mcg/min
[2022-07-09 13:59] LABS: Lactic Acid 4.6 mmol/L (0.4-2.0)
--- NOTE | 2022-07-09 14:01 | PC.NURSE ---
elevated troponin 1492.9, erp is made aware.
[2022-07-09 14:02] LABS: Troponin I 1492.9 ng/L (0.00-60.4)
--- NOTE | 2022-07-09 15:27 | PC.NURSE ---
[facility] system hotel server is down at this time, they are not able to move patient for the transfer until it comes back up. asked RN to call back in 1 hour by 1630 if we have not heard from them first.
--- NOTE | 2022-07-09 15:56 | PC.NURSE ---
per erp drop norepinephrine to 2 mcg/min
--- NOTE | 2022-07-09 16:38 | PC.NURSE ---
per Harleen at [facility] access line, call back in 30 minutes, food safety auditor is still down they are working on getting a bed for the patient.
[2022-07-09] MEDS: ASPIRIN 81 MG CHEWABLE TABLET 324 MG PO (17:38)
--- NOTE | 2022-07-09 18:09 | PC.NURSE ---
norepinephrine to 2 mcg/min and normal saline 150/hr continued during transfer to [facility]
--- NOTE | 2022-07-11 15:55 | PC.NURSE ---
final urine culture reviewed. this pt was transferred to [facility]. urine report called to assigned nurse for pt in room 736 at this time. pt's nurse states they are already treating for urosepsis at this time.
--- NOTE | 2022-07-15 13:13 | PC.NURSE ---
final blood cultures x2 reviewed. no growth after 5 days. no change in plan of care.
== END 2022-07-09 18:11 | disposition short-term general hospital (02) ==
PROVIDERS: Emergency Provider Emergency Medicine; PCP Emergency Medicine
DX: A41.89 Other specified sepsis (principal); N39.0 Urinary tract infection, site not specified; R65.21 Severe sepsis with septic shock; I21.4 Non-ST elevation (NSTEMI) myocardial infarction; E86.0 Dehydration; N17.9 Acute kidney failure, unspecified; E83.42 Hypomagnesemia; C01 Malignant neoplasm of base of tongue; E11.9 Type 2 diabetes mellitus without complications; I10 Essential (primary) hypertension; E78.2 Mixed hyperlipidemia; Z79.84 Long term (current) use of oral hypoglycemic drugs; Z86.73 Personal history of transient ischemic attack (TIA), and cerebral infarction without residual deficits; Z87.891 Personal history of nicotine dependence; Z20.822 Contact with and (suspected) exposure to COVID-19; W08.XXXA Fall from other furniture, initial encounter; Y92.009 Unspecified place in unspecified non-institutional (private) residence as the place of occurrence of the external cause
CPT/HCPCS: 36415; 70450; 71045; 73562; 80053; 81001; 82150; 82550; 83605; 83690; 83735; 84484; 85025; 87040; 87077; 87086; 87088; 87186; 87637; 93005; 96361; 96365; 96366; 96367; 96368; 99285; A9270; J2543; J3475; J7030

== ENCOUNTER 2022-09-28 09:00 | Outpatient (CLI) | payer MEDICARE, SELFPAY ==
--- NOTE | ~2022-09-28 | CT_ITS ---
EXAMINATION: CT soft tissue neck w con DATE: 09/28/2022 09:28 INDICATION: Malignant neoplasm of base of tongue. TECHNIQUE: Computed tomography (CT) of the neck was performed with 75 mL Omnipaque-350 intravenous co ntrast. Automated exposure control and iterative reconstruction technique were employed. The dose-calile gth product was 589.45 mGy-cm. COMPARISON: PET/CT 03/23/2022 FINDINGS: There is mild scarring at the lung apices. There are groundglass and airspace opacities in right upper lobe with architectural distortion. There are mild groundglass opacities in left upper lo be. There are small pleural effusions. There are likely changes of ocular lens replacement surgeries. There is plaque in the proximal internal carotid arteries with 0% stenosis relative to normal distal artery lumen diameters. There is mucosal thickening in the pharynx and larynx, likely changes of rad iation therapy. There are no pathologically enlarged lymph nodes. The previously enlarged high right internal jugular lymph node is now normal in size. There is a right mastoid effusion. There is severe cervical spondylosis. IMPRESSION: 1. No evidence of metastatic disease. 2. Lung disease in the upper lobes, right worse than left, which may be changes of radiation therapy or atypical pneumonia. 3. Small pleural effusions. Reviewed, dictated and finalized at location L.
== END 2022-09-28 09:01 | disposition home or self-care (01) ==
PROVIDERS: PCP Emergency Medicine; Visit Provider Radiology Radiation Oncology
DX: C01 Malignant neoplasm of base of tongue (principal); J90 Pleural effusion, not elsewhere classified; R91.8 Other nonspecific abnormal finding of lung field
CPT/HCPCS: 70491; Q9967

== ENCOUNTER 2022-10-28 16:04 | Emergency (ER) | payer MEDICARE, SELFPAY ==
[2022-10-28 16:30] VITALS: BP 122/60; PULSE 58; TEMP 36.8; O2SAT 98
--- NOTE | 2022-10-28 16:40 | ECG_ITS ---
Measurements Intervals [place] Rate: 67 P: -12 [place]: 181 QRS: -13 QRSD: 170 T: 117 QT: 460 QTc: 487 Interpretive Statements SINUS RHYTHM LEFT BUNDLE BRANCH BLOCK [120+ ms QRS DURATION, 80+ ms Q/S IN V1/V2, 85+ ms R IN I/aVL/V5/V6] COMPARED TO ECG 07/09/2022 10:31:20 HEART RATE IS REDUCED NO OTHER SIGNIFICANT CHANGE Electronically Signed On 10-29-2022 17:35:36 CDT by Jose G Perkins M.D.
[2022-10-28 17:06] LABS: Basophils Absolute Auto 0.02 K/mm3 (0.00-0.10); Basophils Percent Auto 0.4 % (0.0-1.0); Eosinophils Percent Auto 3.6 % (1.0-6.0); Hematocrit 30.5 % (37.0-46.0); Hemoglobin 10.3 g/dL (12.4-15.3); Immature Granulocyte Absolute 0.02 K/mm3 (0.00-0.00); Immature Granulocyte Percent A 0.4 % (0.0-0.0); Lymphocytes Absolute Auto 1.22 K/mm3 (1.10-4.50); Lymphocytes Percent Auto 21.8 % (18.0-42.0); Mean Corpuscular HGB Conc 33.8 g/dL (32.0-36.0); Mean Corpuscular Hemoglobin 32.1 pg (27.0-31.0); Mean Platelet Volume 8.2 fl (8.7-11.0); Monocytes Absolute Auto 0.41 K/mm3 (0.10-0.90); Monocytes Percent Auto 7.3 % (2.0-11.0); Neutrophils Absolute Auto 3.7 K/mm3 (1.7-7.2); Neutrophils Percent Auto 66.5 % (50.0-70.0); Platelet Count Result 165 K/mm3 (150-420); Red Blood Count 3.21 M/mm3 (4.70-6.10); Red Cell Distribution Width 13.9 % (11.6-14.4); White Blood Count 5.6 K/mm3 (4.8-10.8)
[2022-10-28 17:23] LABS: Alanine Aminotransferase 19 U/L (16-63); Albumin Level 3.3 g/dL (3.4-5.0); Alkaline Phosphatase 68 U/L (46-116); Anion Gap 6 mmol/L (8-16); Aspartate Amino Transferase 17 U/L (15-37); Bilirubin,Total 0.4 mg/dL (0.00-1.00); Blood Urea Nitrogen 18 mg/dL (7-18); Calcium 9.4 mg/dL (8.5-10.1); Carbon Dioxide 32 mmol/L (21-32); Chloride 102 mmol/L (98-108); Estimated CRCL calculation 37 ml/min; Estimated Glomerular Filt Rate 47; Glucose 101 mg/dL (70-99); Osmolality Calculated 291 mOsm/kg (285-295); Potassium 4.1 mmol/L (3.5-5.1); Sodium 140 mmol/L (136-145); Total Protein 6.8 g/dL (6.4-8.2)
[2022-10-28 17:44] LABS: Lactic Acid Reflex 1.3 mmol/L (0.4-2.0)
[2022-10-28] MEDS: SODIUM CHLORIDE 0.9% IV 500 ML 999 ML IV CONT (17:54)
[2022-10-28 18:05] LABS: Troponin I 33.4 ng/L (0.00-60.4)
[2022-10-28 18:06] LABS: Appearance Urine Clear (Clear); Bilirubin Urine Negative (Negative); Color Urine Yellow (Yellow); Glucose Urine UA Negative (Negative); Ketones Urine Trace (Negative); Leukocyte Esterase Ur 1+ LEU/UL (Negative); Nitrate Urine Negative (Negative); Protein Urine Negative (Negative); Urobilinogen Urine 0.2 mg/dL (0.2-1.0)
[2022-10-28 18:10] LABS: NT Pro B Type Natriuretic Pept 1953 pg/mL (0-450)
[2022-10-28 18:19] LABS: Add Urine Microscopic? YES; Bacteria Urine Trace /hpf; Blood Urine Trace-lysed (Negative); RBC Urine 0-2 /hpf (0-2); Squamous Epithelial Cell Urine None seen /hpf (Few)
--- NOTE | 2022-10-28 18:59 | ED.GENADULT ---
HPI - General Adult General Chief complaint: Unspecified Stated complaint: recent fall Time Seen by Provider: 10/28/22 16:09 Source: patient and family Mode of arrival: ambulatory Limitations: no limitations History of Present Illness HPI narrative: patient presents with his family is a 81-year-old with a history of an old CVA, hypertension obstructive sleep apnea has a history of tongue cancer and has currently GI tube but it has been in eating normally and having regular meals and drinking as well. Patient was having frequent falls had approximately 5 falls over the last week and was seen by his primary care physician had an EKG performed as well as orthostatics. The patient was orthostatic positive his EKG showed no acute changes. The patient appears comfortable with no chest pain no shortness of breath no abdominal pain no nausea vomiting no fever chills no diarrhea constipation. 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 Cataract (lens) fragments in eye following cataract surgery, bilateral Essential (primary) hypertension History of CVA (cerebrovascular accident) Mixed hyperlipidemia Obstructive sleep apnea Surgical History Surgical History Surgical history unknown Family History Family History Mother Diabetes mellitus Hypertension Heart disease Sibling Family history of cardiovascular disease Cancer of stomach Brain cancer Family history of elevated blood lipids Family history of lung cancer Lung cancer Hypertension Heart disease Father Family history of malignant neoplasm History of cancer of stomach Other Family history of kidney disease Social History Social History Social History: The patient lives with his and has 4 children. The patient used to smoke. Code status full code Smoking packs per day: 1 Smoking cigarettes per day: 20.0 Years smoked: 20 Smoking pack-years: 20.00 Smoking status: Former smoker Tobacco type: cigarettes Second hand tobacco smoke exposure: No Smoking end date: 05/02/1962 Additional smoking assessment comments: smoked on occassion nothing for lengths of time Alcohol intake: former Substance use: never Lack of Transportation: No Lack of Food: Never True Current Housing: I Have Housing Concerned About Future Housing: No Difficulty Paying Gas/Electric Bills: No Difficulty Paying for Meds: No Currently Unemployed: No Education: High School Diploma/GED Difficulty w/ Childcare or Family Care: No Gender identity (if verbalized by the patient): Male Sexual Orientation (if Verbalized by the Patient): Straight or Heterosexual Spiritual care concerns: No Exam Const: General: cooperative, healthy appearing, comfortable, no acute distress and well developed HENMT: Head: normal to inspection Eyes: General: appearance normal, both eyes and all related structures Neck: Neck: normal visual inspection, full ROM and no lymphadenopathy Chest: Chest palpation & inspection: normal inspection of the chest Resp: Effort & Inspection: normal respiratory effort and able to speak in complete sentences Cardio: Jugular venous distension: no JVD Palpation: normal PMI
[2022-10-28 19:05] VITALS: BP 114/91; BP 131/65; PULSE 66; PULSE 71
[2022-10-28 19:10] VITALS: BP 92/51; PULSE 74
[2022-10-28 19:54] VITALS: BP 123/69; PULSE 70; RESP 22; TEMP 36.7; O2SAT 97
--- NOTE | 2022-10-30 13:16 | PC.NURSE ---
final urine culture reviewed. no growth. no change in plan of care.
== END 2022-10-28 19:57 | disposition home or self-care (01) ==
PROVIDERS: Emergency Provider Emergency Medicine; PCP Emergency Medicine
DX: I95.1 Orthostatic hypotension (principal); R42 Dizziness and giddiness; E78.2 Mixed hyperlipidemia; I10 Essential (primary) hypertension; Z86.73 Personal history of transient ischemic attack (TIA), and cerebral infarction without residual deficits; Z79.01 Long term (current) use of anticoagulants; Z87.891 Personal history of nicotine dependence; Z91.81 History of falling; Z85.810 Personal history of malignant neoplasm of tongue; E11.9 Type 2 diabetes mellitus without complications; Z79.899 Other long term (current) drug therapy
CPT/HCPCS: 36415; 80053; 81001; 83605; 83880; 84484; 85025; 87086; 93005; 96360; 99284; J7040

== ENCOUNTER 2022-12-02 09:54 | Emergency (ER) | payer MEDICARE, SELFPAY ==
[2022-12-02] VITALS (51 sets, daily range): BP systolic 75–120; BP diastolic 43–79; PULSE 65–110; RESP 8–23; TEMP 36.6–36.9; O2SAT 93–100
--- NOTE | ~2022-12-02 | XR_ITS ---
EXAMINATION: XR chest 2V DATE: 12/02/2022 10:49 INDICATION: Shortness breath. TECHNIQUE: Frontal and lateral views of the chest were obtained. COMPARISON: Chest single view 07/09/2022, PET/CT 03/23/2022 FINDINGS: There is eventration of anterior right hemidiaphragm. Calcified pulmonary nodules and calci fied hilar and mediastinal lymph nodes are consistent with old granulomatous disease. There is mild a telectasis versus scarring in the mid and lower lung zones. No pleural effusion or pneumothorax. The heart size is normal. IMPRESSION: 1. Mild atelectasis versus scarring in the mid and lower lung zones. Reviewed, dictated and finalized at location L.
--- NOTE | ~2022-12-02 | CT_ITS ---
CT head without contrast Indication: Status post fall COMPARISON: 07/09/2022 Technique: Serial scans were obtained through the brain without the administration of contrast. Dose reduction technique was used on this scan by utilizing automated exposure control and iterative recon struction technique. The dose-length product (DLP) was 756.67 mGy-cm. Findings: There is no evidence of intracranial hemorrhage, mass lesion, or acute infarct. Probable ch ronic left thalamic lacunar infarct. The ventricles and subarachnoid spaces are dilated, consistent w ith mild atrophy. Low attenuation regions are seen within the periventricular white matter bilateral ly, likely representing changes from chronic microvascular ischemic disease. There is no evidence of edema, mass effect or midline shift. The visualized paranasal sinuses and mastoid air cells are daniela ar. Impression: No intracranial hemorrhage, mass, or acute infarct. Chronic left thalamic lacunar infarct. Atrophy and chronic white matter changes, as above. Reviewed, dictated and finalized at location . Impression: No intracranial hemorrhage, mass, or acute infarct. Chronic left thalamic lacunar infarct. Atrophy and chronic white matter changes, as above.
--- NOTE | 2022-12-02 10:04 | ECG_ITS ---
Measurements Intervals [place] Rate: 78 P: 60 [place]: 189 QRS: 73 QRSD: 165 T: -39 QT: 448 QTc: 512 Interpretive Statements SINUS RHYTHM LEFT BUNDLE BRANCH BLOCK [120+ ms QRS DURATION, 80+ ms Q/S IN V1/V2, 85+ ms R IN I/aVL/V5/V6] COMPARED TO ECG 10/28/2022 18:17:46 NO SIGNIFICANT CHANGES Electronically Signed On 12-02-2022 10:20:33 CDT by Juana Carnes M.D.
--- NOTE | 2022-12-02 10:32 | ED.FALL ---
HPI - Fall General Chief Complaint: Fall Stated Complaint: fall Source: patient and EMS Mode of arrival: ambulatory Limitations: dementia History of Present Illness HPI Narrative: Patient is an 82-year-old male presents to the emergency room through EMS secondary to a fall over the night. Patient remembers falling around 2:00 a.m. in the morning and was found by family and sent to the emergency room for further evaluation today. No complaints at this time to include no chest pain or shortness of breath. Last known well was 2:00 a.m. which is 10 hours prior to emergency room presentation. No focal complaints or deficits. Patient can not remember if he lost consciousness. family presents 1 hour after arrival to the emergency room and says that he probably took double blood pressure medicine in the past 24 hours accidentally. Patient does have some baseline dementia process. MD complaint: fall Onset (ago): hour(s) Fall from: standing Fall witnessed: no Place fall occurred: home Loss of consciousness: unsure Prolonged down time: yes Symptoms prior to fall: none Context: tripped/slipped Associated symptoms (after fall): denies Related Data Home Medications Medication Instructions Recorded Confirmed amiodarone 200 mg tablet 200 mg PO DAILY 09/08/22 12/02/22 apixaban 5 mg tablet (Eliquis) 5 mg PO BID 11/04/22 12/02/22 metoprolol tartrate 25 mg tablet 12.5 mg PO BID 11/04/22 12/02/22 furosemide 20 mg tablet 20 mg PO DAILY 12/02/22 12/02/22 Allergies Allergy/AdvReac Type Severity Reaction Status Date / Time No Known Allergies Allergy Verified 11/04/22 11:29 Review of Systems Review of Systems: All systems reviewed & are unremarkable except as noted in HPI and below Constitutional: Constitutional: Reports no additional constitutional complaints Eyes: Eyes: Reports no additional eye complaints ENT: Reports system reviewed and no additional complaints, except as documented Cardiovascular: Cardiovascular: Reports no additional cardiovascular complaints Respiratory: Respiratory: Reports no additional respiratory complaints Gastrointestinal: Gastrointestinal: Reports no additional gastrointestinal complaints Genitourinary: Genitourinary: Reports no additional male genitourinary complaints Musculoskeletal: Musculoskeletal: Reports no additional musculoskeletal complaints Integumentary/Breasts: Skin/Breast: Reports system reviewed and no additional complaints, except as docu Neurologic: Reports system reviewed and no additional complaints, except as documented Psychiatric: Psychiatric: Reports no additional psychiatric complaints Endocrine: Endocrine: Reports no additional endocrine complaints Hematologic/Lymphatic: Hematologic/Lymphatic: Reports no additional hematologic/lymphatic complaints Allergic/Immunologic: Allergic/Immunologic: Reports no additional allergic/immunologic complaints PMFSH Past Medical History Medical History Benign hypertension 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 Cataract (lens) fragments in eye following cataract surgery, bilateral Essential (primary) hypertension History of CVA (cerebrovascular accident) Mixed hyperlipidemia Obstructive sleep apnea Surgical History Surgical History Surgical history unknown Family History Family History Mother Diabetes mellitus Hypertension Heart disease Sibling Family history of cardiovascular disease Cancer of stomach Brain cancer Family history of elevated blood lipids Family history of lung cancer Lung cancer Hypertension Heart disease Father Family history of malignant neoplasm History of cancer of stomach Other Family history of kidney disease Social History Social History Social Histor
[2022-12-02 10:43] LABS: Hematocrit 28.1 % (37.0-46.0); Hemoglobin 9.4 g/dL (12.4-15.3); Mean Corpuscular HGB Conc 33.5 g/dL (32.0-36.0); Mean Corpuscular Hemoglobin 31.2 pg (27.0-31.0); Mean Corpuscular Volume 93.4 fL (78.0-102.0); Mean Platelet Volume 8.5 fl (8.7-11.0); Platelet Count Result 172 K/mm3 (150-420); Red Blood Count 3.01 M/mm3 (4.70-6.10); Red Cell Distribution Width 13.7 % (11.6-14.4); White Blood Count 10.7 K/mm3 (4.8-10.8)
[2022-12-02 11:01] LABS: Band Neutrophils Percent 25 % (0-6); Basophils Percent Manual 0 % (0-1); Eosinophils Percent Manual 0 % (1-6); Lymphocytes Percent Manual 1 % (18-44); Metamyelocytes Percent 2 %; Monocytes Percent Manual 1 % (3-9); Myelocytes Percent 1 %; Neutrophils Absolute Manual 10.16 K/mm3 (1.3-6.7); Neutrophils Percent Manual 70 % (46-73); Platelet Estimate Adequate (Adequate); Total Cells Counted 100
[2022-12-02 11:07] LABS: Alanine Aminotransferase 28 U/L (16-63); Albumin Level 3.2 g/dL (3.4-5.0); Alkaline Phosphatase 60 U/L (46-116); Anion Gap 9 mmol/L (8-16); Aspartate Amino Transferase 81 U/L (15-37); Bilirubin,Total 0.6 mg/dL (0.00-1.00); Blood Urea Nitrogen 32 mg/dL (7-18); Calcium 9.3 mg/dL (8.5-10.1); Carbon Dioxide 28 mmol/L (21-32); Chloride 104 mmol/L (98-108); Estimated CRCL calculation 29 ml/min; Estimated Glomerular Filt Rate 36; Glucose 154 mg/dL (70-99); Osmolality Calculated 301 mOsm/kg (285-295); Potassium 4.1 mmol/L (3.5-5.1); Sodium 141 mmol/L (136-145); Total Protein 6.7 g/dL (6.4-8.2)
[2022-12-02 11:08] LABS: Troponin I 10969.1 ng/L (0.00-60.4)
[2022-12-02] MEDS: ASPIRIN 81 MG CHEWABLE TABLET 324 MG PO (11:29)
[2022-12-02 11:30] LABS: Creatine Kinase 2983 U/L (39-308)
[2022-12-02] MEDS: SODIUM CHLORIDE 0.9% IV 1,000 ML 999 ML IV CONT ×2 (11:30→12:55)
[2022-12-02] MEDS: levoFLOXacin 750 MG/D5W 150 ML 750 MG/150 ML BAG 100 MG IVPB (11:31)
[2022-12-02 11:35] LABS: Magnesium 1.8 mg/dL (1.8-2.4)
--- NOTE | 2022-12-02 11:39 | PC.NURSE ---
Addendum entered by Serg Laureano RN 12/02/22 14:28: states that patient took 2 days of blood pressure medications when she checked set up medications. Original Note: 1120 in room with patient, updated on treatment to this time.
--- NOTE | 2022-12-02 11:42 | PC.NURSE ---
dr speaking with discussing plan of care.
--- NOTE | 2022-12-02 12:26 | PC.NURSE ---
pt unable to urinate, declined cath insertion . attempts to urinate in urinal. laying, sitting and standing.
[2022-12-02 13:24] LABS: Appearance Urine Cloudy (Clear); Bilirubin Urine Negative (Negative); Blood Urine 3+ (Negative); Color Urine Light Yellow (Yellow); Glucose Urine UA Negative (Negative); Ketones Urine Negative (Negative); Leukocyte Esterase Ur 3+ (Negative); Nitrate Urine Positive (Negative); Protein Urine 2+ (Negative); pH Urine 8.5 (5.0-8.0)
[2022-12-02 13:29] LABS: Add Urine Microscopic? YES; Squamous Epithelial Cell Urine Rare /hpf (Few)
[2022-12-02 13:30] LABS: Bacteria Urine 2+ /hpf
[2022-12-02 13:39] LABS: Reflex Lactic Acid Yes or No Add Lactic
[2022-12-02 14:08] LABS: Lactic Acid 3.6 mmol/L (0.4-2.0)
--- NOTE | 2022-12-02 14:25 | PC.NURSE ---
pt repositioned in bed after eating meal provided.
[2022-12-02] MEDS: SODIUM CHLORIDE 0.9% IV 500 ML 999 ML IV CONT (15:27)
--- NOTE | 2022-12-02 15:30 | PC.NURSE ---
labs drawn at this time for repeat troponin.
[2022-12-02 15:54] LABS: Lactic Acid Reflex 3.5 mmol/L (0.4-2.0)
[2022-12-02 16:03] LABS: Creatine Kinase 3689 U/L (39-308)
[2022-12-02] MEDS: SODIUM CHLORIDE 0.9% IV 1,000 ML 100 ML IV CONT (16:19)
--- NOTE | 2022-12-02 16:38 | PC.NURSE ---
saas here, pt loaded to cot. tolerated well. no needs at this time , pt alert and oriented as per baseline , pt has dementia per .
--- NOTE | 2022-12-03 13:56 | PC.NURSE ---
ABNORMAL BLOOD CULTURE REVIEWED, LAB NOTIFIED CARIN MEDEL.
== END 2022-12-02 16:48 | disposition short-term general hospital (02) ==
PROVIDERS: Emergency Provider Emergency Medicine; PCP Emergency Medicine
DX: R79.89 Other specified abnormal findings of blood chemistry (principal); I95.9 Hypotension, unspecified; M62.82 Rhabdomyolysis; R65.10 Systemic inflammatory response syndrome (SIRS) of non-infectious origin without acute organ dysfunction; I10 Essential (primary) hypertension; E78.2 Mixed hyperlipidemia; Z86.73 Personal history of transient ischemic attack (TIA), and cerebral infarction without residual deficits; Z79.01 Long term (current) use of anticoagulants; Z87.891 Personal history of nicotine dependence
CPT/HCPCS: 36415; 70450; 71046; 80053; 81001; 82550; 83605; 83735; 84484; 85025; 87040; 87147; 87186; 93005; 96361; 96365; 99285; A9270; J1956; J7030; J7040

== ENCOUNTER 2022-12-02 17:53 | Inpatient (IN) | payer MEDICARE, SELFPAY ==
[2022-12-02] VITALS (8 sets, daily range): BP systolic 90–103; BP diastolic 44–66; PULSE 78–92; RESP 18–24; TEMP 36.9–37.4; O2SAT 91–98
--- NOTE | ~2022-12-02 | CT_ITS ---
EXAMINATION: CTA chest PE protocol DATE: 12/03/2022 09:59 INDICATION: Hypotension. TECHNIQUE: Computed tomography angiography (CTA) of the chest was performed with 100 mL Omnipaque-350 intravenous contrast timed to evaluate the pulmonary arteries. Coronal maximum intensity projection 3D-reconstructions were created by the technologist. Automated exposure control and iterative reconst ruction technique were employed. The dose-length product was 776.38 mGy-cm. COMPARISON: Head CT 03/23/2022 FINDINGS: There is septal thickening in all lobes. There are parenchymal calcifications in the lower lobes. Calcified pulmonary nodules and calcified hilar lymph nodes are consistent with old granulomat ous disease. There are patchy groundglass opacities in right upper lobe and right middle lobe. There are small pleural effusions. There is left ventricular enlargement of the heart. There are coronary a rtery calcifications. No pericardial effusion. There is no pulmonary embolus. There is mild thoracic spondylosis. IMPRESSION: 1. No pulmonary embolus. 2. Patchy groundglass opacities in right upper lobe and right middle lobe, consistent with pulmonary edema versus pneumonia. 3. Chronic interstitial lung disease. 4. Small pleural effusions. Reviewed, dictated and finalized at location B. IMPRESSION: 1. No pulmonary embolus. 2. Patchy groundglass opacities in right upper lobe and right middle lobe, cons istent with pulmonary edema versus pneumonia. 3. Chronic interstitial lung disease. 4. Small pleural effusions.
--- NOTE | ~2022-12-02 | CT_ITS ---
EXAMINATION: CT abdomen wo con DATE: 12/03/2022 10:00 INDICATION: Acute kidney injury. TECHNIQUE: Computed tomography (CT) of the abdomen was performed without intravenous contrast. Automa silver exposure control and iterative reconstruction technique were employed. The dose-length product wa s 965.05 mGy-cm. COMPARISON: PET CT 03/23/2022 FINDINGS: The visualized portions of the lung bases demonstrate groundglass opacities in right middle lobe. There is chronic septal thickening bilaterally associated with parenchymal calcifications in t he lower lobes. Calcified pulmonary nodules and calcified hilar lymph nodes are consistent with old g ranulomatous disease. No small pleural effusions. There is left ventricular enlargement of the heart. There are coronary artery calcifications. No pericardial effusion. There are cysts in the liver luisa uring up to 9 mm. Calcifications in the liver and spleen are consistent with old granulomatous diseas e. The gallbladder, spleen, and pancreas are normal. There is a 19 mm mass in right adrenal gland joe suring soft tissue attenuation without increased activity on the prior PET, likely an adenoma. Left a drenal gland is normal. Right kidney is normal. There is a 6 mm stone in left kidney. No hydronephros is. There is calcified atherosclerosis of the aorta and many of the other arteries. There are no dila silver loops of bowel. There is a small volume of ascites. There is a gastrostomy tube in expected posit ion. There is moderate lumbar spondylosis. There is a chronic compression fracture of L1. IMPRESSION: 1. 6 mm nonobstructing left kidney stone. 2. Groundglass opacities in right middle lobe, consistent with pulmonary edema versus pneumonia. 3. Chronic interstitial lung disease. 4. Small pleural effusions. 5. Small volume of ascites. Reviewed, dictated and finalized at location B.
--- NOTE | 2022-12-02 17:51 | PM.IMHP ---
H&P: HPI History of Present Illness Date/Time: 12/02/22 17:51 Chief Complaint: Fall with weakness, unable to get off floor on his own for several hours Narrative: This is an 82-year-old male patient [place] [facility] [place] in the emergency department with a complaint of weakness status leading to a soft fall as he slid from the couch to the floor around 11:00 p.m. last night. He was on the floor for approximately 8 hours. His witnessed the event but was unable to get him off the floor due to recent back surgery of her own. During the ER evaluation patient was diagnosed with urinary tract infection, states this is his 4th urine infection in the last 2 months. Additionally, patient was found to be hypotensive as low as 70s over 30s by initial EMS unit in 80s over 50s upon leaving outlying facility. Patient also found to have lactic acidosis that continued to rise despite fluid administration and troponin that was very highly elevated and doubled upon recheck. EKG shows sinus rhythm with left bundle-branch block is not significantly changed from prior readings. Patient found to have elevated CK levels that also bernabe upon recheck. Outlying facility suspected that troponin and CK were related to rhabdomyolysis from lying on the floor all night. Patient found to have an LOGAN which somewhat improved after fluid bolus. Patient states he had dysuria last night no fever or chills. Patient is unable to tell me if he has any shortness of breath or chest pain. He only mentions some left shoulder pain that is worsened with palpation at the anterior shoulder joint. 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 Cataract (lens) fragments in eye following cataract surgery, bilateral Essential (primary) hypertension History of CVA (cerebrovascular accident) Mixed hyperlipidemia Obstructive sleep apnea Surgical History Surgical History Surgical history unknown Family History Family History Mother Diabetes mellitus Hypertension Heart disease Sibling Family history of cardiovascular disease Cancer of stomach Brain cancer Family history of elevated blood lipids Family history of lung cancer Lung cancer Hypertension Heart disease Father Family history of malignant neoplasm History of cancer of stomach Other Family history of kidney disease Social History Social History Social History: The patient lives with his and has 4 children. The patient used to smoke. Code status full code Smoking packs per day: 1 Smoking cigarettes per day: 20.0 Years smoked: 20 Smoking pack-years: 20.00 Smoking status: Former smoker Tobacco type: cigarettes Second hand tobacco smoke exposure: No Smoking end date: 05/02/1962 Additional smoking assessment comments: smoked on occassion nothing for lengths of time Alcohol intake: former Substance use: never Lack of Transportation: No Lack of Food: Never True Current Housing: I Have Housing Concerned About Future Housing: No Difficulty Paying Gas/Electric Bills: No Difficulty Paying for Meds: No Currently Unemployed: No Education: High School Diploma/GED Difficulty w/ Childcare or Family Care: No Gender identity (if verbalized by the patient): Male Sexual Orientation (if Verbalized by the Patient): Straight or Heterosexual Spiritual care concerns: No Meds Home Medications and Allergies Home Medications Medication Instructions
--- NOTE | 2022-12-02 17:51 | ADMGEN ---
This patient, Bebo Carpenter, was admitted to Medical Room 344-01. Patient/family oriented to hospital policies and general routines including ID bracelet, bed and alarms, visiting hours, pain management, procedures, bathroom and other care routines, personal items, smoking policy, room service/diet, and visiting hours. Information on how to activate the Rapid Response Team has been discussed. Patient/Family are encouraged to report perceived risks to care and to ask questions if they do not understand what they are told or what they should do.
--- NOTE | 2022-12-02 17:52 | ECG_ITS ---
Measurements Intervals [place] Rate: 79 P: -9 [place]: 187 QRS: -12 QRSD: 153 T: 106 QT: 444 QTc: 510 Interpretive Statements SINUS RHYTHM WITH FIRST-DEGREE AV BLOCK LEFT BUNDLE BRANCH BLOCK [120+ ms QRS DURATION, 80+ ms Q/S IN V1/V2, 85+ ms R IN I/aVL/V5/V6] COMPARED TO ECG 12/02/2022 10:16:45 NO SIGNIFICANT CHANGES Electronically Signed On 12-03-2022 12:53:53 CDT by Jose G Perkins M.D.
[2022-12-02 18:46] LABS: Hematocrit 24.7 % (42.0-52.0); Hemoglobin 8.1 g/dL (14.0-18.0); Lactic Acid Reflex 2.3 mmol/L (0.7-2.0); Mean Corpuscular HGB Conc 32.8 g/dl (32-36); Mean Corpuscular Hemoglobin 31.2 pg (26-34); Mean Platelet Volume 8.7 fl (7.4-10.4); Platelet Count Result 149 k/mm3 (150-375); White Blood Count 13.7 K/mm3 (4.5-10.0)
[2022-12-02 18:55] LABS: Alanine Aminotransferase 36 U/L (6-50); Albumin Level 3.1 g/dL (3.5-5.1); Alkaline Phosphatase 49 U/L (38-126); Anion Gap 6 mmol/L (8-16); Aspartate Amino Transferase 162 U/L (17-59); Bilirubin,Total 0.5 mg/dL (0.2-1.3); Blood Urea Nitrogen 29 mg/dL (9-20); Calcium 8.3 mg/dL (8.4-10.2); Carbon Dioxide 23 mmol/L (22-30); Chloride 105 mmol/L (98-107); Estimated Glomerular Filt Rate 49; Glucose 95 mg/dL (65-110); Lipase 27 U/L (23-300); Sodium 134 mmol/L (137-145)
[2022-12-02 18:56] LABS: Band Neutrophils Percent 27 % (0-6); Lymphocytes Absolute Manual 0.68 K/mm3 (1.1-4.5); Monocytes Absolute Manual 0.41 K/mm3 (0.1-0.90); Monocytes Percent Manual 3 % (3-9); Neutrophils Percent Manual 65 % (46-73); Total Cells Counted 100
[2022-12-02 18:57] LABS: D Dimer 1.13 ug/mL (<0.48); Schistocytes None Seen (NORMAL)
[2022-12-02] MEDS: SODIUM CHLORIDE 0.9% IV 1,000 ML 100 ML IV CONT (18:59)
[2022-12-02 19:02] LABS: NT Pro B Type Natriuretic Pept 23700 pg/mL (19.9-100)
--- NOTE | 2022-12-02 19:45 | PC.NURSE ---
PT TRANSFERED FROM [facility]
[2022-12-02 19:46] LABS: Creatine Kinase 4965 U/L (55-170)
[2022-12-02 20:07] LABS: INR 1.9; Partial Thromboplastin Time 42.1 SECONDS (22.3-36.8); Prothrombin Time 22.8 Seconds (11.1-14.7)
[2022-12-02 20:39] LABS: Hemoglobin A1C 5.5 % (<5.7)
[2022-12-02] MEDS: HEPARIN SODIUM 5,000 UNITS/ML VIAL 4000 UNITS IV PUSH (20:55)
[2022-12-02] MEDS: HEPARIN SOD/D5W 100 UNITS/ML 25,000 UNITS/250 ML BAG 9 UNITS IV CONT (20:56)
[2022-12-02] MEDS: ASPIRIN 81 MG CHEWABLE TABLET 324 MG PO (21:00)
[2022-12-02] MEDS: CLOPIDOGREL BISULFATE 300 MG TABLET PO (21:00)
--- NOTE | 2022-12-02 21:01 | WPDPROCEDUR ---
Procedures Central Line Placement Right Femoral: Central Line Date: 12/02/22 Central Line Time: 20:50 Discussed w/ the patient/family/POA,the placement of a central venous catheter, including its clinical necessity/indication & associated potential risks, benifits and alternatives.: Yes The patient/family/POA understand(s) and acknowledge(s) the need to proceed with central venous catheter insertion as an important element of the patient's clinical management.: Yes Consent: I have discussed with the patient and/or surrogate, the non-emergent placement of a central venous catheter, including its clinical necessity/indication and associated potential risks and complications. The patient and/or surrogate understand(s) and acknowledge(s) the need to proceed with central venous catheter insertion as an important element of the patient's clinical management. Time Out Performed: Yes Patient Position: supine Patient placed on monitor/pulse ox: Yes Provider Prep: Max. sterile barrier precautions Central line prep: 2% Chlorhexidine scrub Local anesthesia used: lidocaine 2% Amount of anesthesia used (ml): 5 Sterile US Technique with sterile gel/sterile probe covers: Yes Central line lumen inserted: triple Latvian: 7 Length (cm): 16 Depth of Insertion (cm): 16 Post Procedure: sutured in place, good blood return, all ports aspirated, flushed, capped, transparent dressing, antimicrobial product and securement product Post procedure x-ray: other (not needed as it was femoral ) Patient tolerated procedure: well Complications: none
[2022-12-02] MEDS: cefTRIAXone 2 GM/NS 100 ML 2 GM/100 ML BAG IVPB (21:19)
[2022-12-03] VITALS (69 sets, daily range): BP systolic 96–123; BP diastolic 50–71; PULSE 73–103; RESP 14–29; TEMP 36.7–37.9; O2SAT 76–100; BMI 26.2
--- NOTE | 2022-12-03 | ECHO_ITS ---
Patient Info Name: Bebo Carpenter Age: 82 years : 1940 Gender: Male Ht: 69 in Wt: 178 lbs BSA: 2.00 m2 HR: 82 bpm BP: 111 / 58 mmHg Heart Rhythm: Sinus Rhythm Technical Quality: Fair Exam Date: 12/03/2022 8:08 AM Exam Location: [facility] Card Pulmonary Patient Status: Inpatient Admit Date: 12/02/2022 Staff Ordering Physician: Dmitriy Lamar APRN Sulfide Head Operator: Emiliana Milan RDCS Attending Provider: Kanchan Rodriguez DO Referring Physician: Willard TRACEY; Exam Type: CA echo dop color flow w con Study Info Indications - hypotensio despite fluid resuscitation Complete two-dimensional, color flow and Doppler transthoracic echocardiogram is performed with contrast to opacify the left ventricle and to improve the deliniation of the left ventricle endocardial borders. Contrast/Agitated Saline Contrast/Ag. Saline: Definity Amount: 3.00 ml Administered By: Emiliana Milan RDCS Existing IV Access: Yes IV Access Condition: patent with no signs of infiltration Summary 1. Technically difficult exam, definity contrast used to improve visualization. 2. Mildly enlarged left ventricle with grade 1 diastolic noncompliance and overall adequate systolic function. 3. Abnormal septal motion due to left bundle branch block. 4. Trivial amount of MR. 5. Sclerotic but not stenotic aortic valve. Left Ventricle Left ventricular chamber dimension is mildly enlarged. Left ventricular systolic function is normal, estimated at 50-55%. There is mild concentric increased left ventricular wall thickness. Left ventricular septal wall motion is abnormal with septal motion related to bundle branch block. The left ventricular diastolic function is grade I diastolic dysfunction. Right Ventricle Right ventricular chamber dimension is normal. Left Atria Left atrial chamber dimension is normal. Right Atria Right atrial chamber dimension is normal. Aortic Valve The aortic valve is trileaflet. There is mild aortic valve sclerosis. Pulmonic Valve The pulmonic valve is not well visualized. Mitral Valve The mitral valve has normal leaflets. There is trace mitral valve regurgitation. The mitral valve annulus is mildly calcified. Tricuspid Valve The tricuspid valve leaflets are normal. Pericardium/Pleural There is trivial pericardial effusion. Aorta The aortic root size at the sinus of Valsalva is normal. Left Ventricular Outflow Tract Name Value Normal LVOT 2D LVOT Diameter 1.95 cm LVOT Doppler LVOT Peak Gradient 3 mmHg LVOT Mean Gradient 2 mmHg LVOT VTI 16.66 cm LVOT VTI/AV VTI Ratio 0.87 LVOT Stroke Volume 49.89 ml LVOT CO 3.80 l/min LVOT CI 1.90 L/min/m2 Pulmonic Valve Name Value Normal RVOT Doppler RVO
[2022-12-03 01:19] LABS: Lactic Acid Reflex 0.9 mmol/L (0.7-2.0)
[2022-12-03 03:25] LABS: Hematocrit 24.3 % (42.0-52.0); Hemoglobin 8.1 g/dL (14.0-18.0); Mean Corpuscular HGB Conc 33.3 g/dl (32-36); Mean Corpuscular Volume 93.1 fl (80-100); Mean Platelet Volume 8.5 fl (7.4-10.4); Platelet Count Result 120 k/mm3 (150-375); Red Blood Count 2.61 M/mm3 (4.6-6.20)
[2022-12-03 03:41] LABS: Alanine Aminotransferase 39 U/L (6-50); Albumin Level 2.7 g/dL (3.5-5.1); Alkaline Phosphatase 49 U/L (38-126); Anion Gap 4 mmol/L (8-16); Aspartate Amino Transferase 161 U/L (17-59); Bilirubin,Total 0.5 mg/dL (0.2-1.3); Blood Urea Nitrogen 29 mg/dL (9-20); Calcium 7.9 mg/dL (8.4-10.2); Carbon Dioxide 23 mmol/L (22-30); Chloride 107 mmol/L (98-107); Estimated Glomerular Filt Rate 53; Glucose 96 mg/dL (65-110); Potassium 3.8 mmol/L (3.4-5.0); Sodium 134 mmol/L (137-145)
[2022-12-03 03:48] LABS: Partial Thromboplastin Time 176.1 SECONDS (22.3-36.8)
[2022-12-03 04:05] LABS: Band Neutrophils Percent 18 % (0-6); Lymphocytes Percent Manual 4 % (18-44); Monocytes Percent Manual 4 % (3-9); Neutrophils Percent Manual 74 % (46-73); Platelet Estimate Adequate (Adequate); Total Cells Counted 100
[2022-12-03 04:06] LABS: Anisocytosis 1+ (NORMAL); Burr Cells 2+ (NORMAL); Schistocytes None Seen (NORMAL)
[2022-12-03 04:08] LABS: Creatine Kinase 3475 U/L (55-170)
[2022-12-03 07:48] LABS: Glucose Point of Care 96 mg/dl (65-105)
--- NOTE | 2022-12-03 08:43 | WPDCNINT ---
Assessment and Plan Assessment and plan (1) Non-ST elevated myocardial infarction (non-STEMI): Code(s): I21.4 - Non-ST elevation (NSTEMI) myocardial infarction Status: Acute Assessment and Plan: Patient presented with elevated troponin with EKG showing left bundle branch block which was similar to old EKG Currently on Plavix, Lipitor, heparin infusion Continue telemetry monitoring Cardiology consult Echo ordered and pending (2) Septic shock: Code(s): A41.9 - Sepsis, unspecified organism; R65.21 - Severe sepsis with septic shock Status: Acute Assessment and Plan: Patient presented with septic shock secondary to UTI Patient blood pressure was low despite IV fluid bolus and was started on IV norepinephrine infusion Levophed has now been weaned off Urine and blood cultures have been ordered and are pending. Blood culture 1 of 2 is growing Gram-negative bacilli Currently on Rocephin which will be continued Continue IV fluids Echo is ordered and pending On review of chart patient does appear to have a history of low blood pressures in the past and was taken off of beta-surinder. He also has history of orthostatic hypotension (3) LOGAN (acute kidney injury): Code(s): N17.9 - Acute kidney failure, unspecified Status: Acute Assessment and Plan: Likely multifactorial and secondary to sepsis hypotension and rhabdomyolysis Creatinine improved with IV fluids and is normal range now Continue IV fluids for rhabdomyolysis CT scan of abdomen pelvis is pending to rule out any obstruction hydronephrosis or stone Monitor urine output electrolytes and creatinine (4) Rhabdomyolysis: Qualifiers: Encounter type: initial encounter Rhabdomyolysis type: traumatic Qualified Code(s): T79.6XXA - Traumatic ischemia of muscle, initial encounter Code(s): M62.82 - Rhabdomyolysis Status: Inactive Assessment and Plan: Patient presented with elevated CK likely from laying on the floor He does have elevated BNP suggestive of congestive heart failure Continue cautious IV fluids and monitor CK level Renal function is improving (5) UTI (urinary tract infection): Code(s): N39.0 - Urinary tract infection, site not specified Status: Acute Assessment and Plan: See above (6) Diabetes mellitus: Code(s): E11.9 - Type 2 diabetes mellitus without complications Status: Acute Assessment and Plan: Hold metformin Sliding scale insulin (7) Frequent falls: Code(s): R29.6 - Repeated falls Status: Acute Assessment and Plan: Patient has history of frequent falls and has history of orthostatic hypotension His head CT was negative for any acute injury Will have Physical therapy evaluate patient once patient is hemodynamically stable (8) Irregular cardiac rhythm: Code(s): I49.9 - Cardiac arrhythmia, unspecified Status: Acute Assessment and Plan: Patient has mention of irregular cardiac rhythm in his chart although no documented history of AFib. He is on amiodarone and apixaban which would suggest history of atrial tachycardia. Patient seen the director money from [facility] system. Will try to obtain records Currently in sinus rhythm and on heparin infusion Plan DVT prophylaxis -heparin infusion Nutrition -currently NPO Code Status - Full Code Total Critical Care Time - 35 minutes Due to a high probability of clinically significant, life threatening deterioration, the patient required my highest level of preparedness to intervene emergently and I personally spent this critical care time directly and personally managing the patient. This critical care time included obtaining a history; examining the patient; pulse oximetry; ordering and review of studies; arranging urgent treatment with development of a management plan; evaluation of patient's response to treatment; frequent reassessment; and discussions with other providers.
[2022-12-03] MEDS: PERFLUTREN LIPID MICROSPHERES 1.5 ML VIAL DILUTED TO 10 ML TOTAL VOLUME IV PUSH (08:44)
[2022-12-03] MEDS: CLOPIDOGREL BISULFATE 75 MG TABLET PO (09:07)
[2022-12-03] MEDS: ATORVASTATIN 40 MG TABLET 80 MG PO (09:07)
[2022-12-03] MEDS: PANTOPRAZOLE SOD SESQUIHYDRATE 20 MG TAB PO (09:07)
--- NOTE | 2022-12-03 09:23 | PM.CNCAR ---
Assessment and Plan Assessment and plan (1) Elevated troponin: Code(s): R77.8 - Other specified abnormalities of plasma proteins Status: Inactive Plan This is an 82-year-old man who has elevated troponin levels appears to be a result of rhabdomyolysis after being on the floor for a while in his residence. There is no other evidence of acute coronary syndrome. I would recommend per curing the medical records from [place] if infected history of a recent cardiac evaluation there is accurate. I do not have any plans to bring this gentleman for angiography given this presentation there is no other clinical evidence that an acute coronary syndrome is going on. We will follow him with you while he is in the hospital but that at this time I would not have any specific cardiac recommendations other than to try to obtain the records to see as to the reasons for his amiodarone and anticoagulation treatment. The patient does not recall being told anything about atrial fibrillation. Jose G Perkins MD [facility] History of Present Illness History of Present Illness Consult date/time: 12/03/22 09:23 Reason For Visit: Septic Shock Narrative: This is an 82-year-old man I am seeing at the request of the hospitalist this morning because of troponin levels which are elevated. He is unknown to me prior to this encounter and he appears to be a rather poor historian regarding his medical history apparently according to the chart he has some degree of dementia. He is a pleasant gentleman who does respond to questions appropriately. He was brought to the hospital in [place] from his home after he fell onto the floor from his couch and after about 8 hours of being on the floor his finally called ambulance and was taken to the emergency room. His CPK levels are consistent with rhabdo mild lysis. He also has elevated troponin levels. His electrocardiogram shows sinus rhythm with a left bundle branch block which according to the records is a chronic finding. He is not having any chest pain pressure or heaviness he can not recall having any of that yesterday. 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 He states that he did have a cardiac evaluation in [facility] he thinks several months ago but he can not remember what was found. He does use the term hole in my heart. He is taking amiodarone and apixaban. We do not have any records that indicate the reasons for that. His peak CPK level was 4900 and a troponin at 16. 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 Cataract (lens) fragments in eye following cataract surgery, bilateral Essential (primary) hypertension History of CVA (cerebrovascular accident) Mixed hyperlipidemia Obstructive sleep apnea Surgical History Surgical History Surgical history unknown Family History Family History Mother Diabetes mellitus Hypertension Heart disease Sibling Family history of cardiovascular disease Cancer of stomach Brain cancer Family history of elevated blood lipids Family history of lung cancer Lung cancer Hypertension Heart disease Father Family history of malignant neoplasm History of cancer of stomach Other Family history of kidney disease Social History Social History Social History: The patient lives with his and has 4 children. The patient used to smoke. Code status full code Smoking packs per day: 1 Smoking cigarettes per day: 20.0 Years smoked: 20 Smoking pack-years: 20.00 Smoking status: Former smoker Second hand tobacco smoke exposure: No Additional s
[2022-12-03] MEDS: SODIUM CHLORIDE 0.9% IV 1,000 ML 100 ML IV CONT ×2 (11:30→22:50)
[2022-12-03] MEDS: APIXABAN 5 MG TABLET PO ×2 (11:38→20:22)
[2022-12-03 11:47] LABS: Glucose Point of Care 86 mg/dl (65-105)
[2022-12-03] MEDS: CENTRAL LINE FLUSH 10 ML IV PUSH ×3 (14:27→21:47)
--- NOTE | 2022-12-03 16:53 | WPDPN ---
Progress Note: A&P Assessment and Plan (1) Septic shock: Code(s): A41.9 - Sepsis, unspecified organism; R65.21 - Severe sepsis with septic shock Status: Acute Assessment and Plan: Hypotension and elevated lactic acid after administration 30 milliliter/kilogram bolus of isotonic fluids in the setting of UA convincing for urinary tract infection. (2) Non-ST elevated myocardial infarction (non-STEMI): Code(s): I21.4 - Non-ST elevation (NSTEMI) myocardial infarction Status: Acute Assessment and Plan: Significantly elevated troponin from outside facility. Repeat troponin ordered upon arrival. Prior ER physician believes this is related to patient's time on the ground/rhabdomyolysis rather than cardiac related. However, patient is unable to tell me if he has any symptoms of chest pain or sensation of difficulty breathing. Ordered stat EKG which shows left bundle branch block which is not significantly changed from prior EKGs. 12/03/2022 interval history: patient with fall and developed rahbdo, had elevated significantly elevated trops was seen by polisher [employer] and does not suspecte CAD, patient stats he is feeling, his CK levels are trending down, will continue to gently hydrate the patient will have PT/OT evaluate the patient and further recommendation to follow. (3) Rhabdomyolysis: Qualifiers: Encounter type: initial encounter Rhabdomyolysis type: traumatic Qualified Code(s): T79.6XXA - Traumatic ischemia of muscle, initial encounter Code(s): M62.82 - Rhabdomyolysis Status: Inactive Assessment and Plan: Elevated and rising creatinine kinase levels at outside facility. Patient has received at least 2.5 L or more of IV fluids and has IV fluids running at 100 mL/hr at this time. Urinalysis at outside facility shows 2+ protein, 3+ blood with only 6-10 red blood cells. (4) UTI (urinary tract infection): Code(s): N39.0 - Urinary tract infection, site not specified Status: Acute Assessment and Plan: For urinalysis findings positive nitrates, 10-15 white blood cells, 2+ urine bacteria with rare squamous epithelial cells. Patient reports dysuria symptoms since last night. Prior history of E coli UTI. Patient started on Levaquin at outside facility. (5) Essential (primary) hypertension: Code(s): I10 - Essential (primary) hypertension Status: Acute Assessment and Plan: Patient hypotensive despite fluid boluses and continuous fluids. Hold antihypertensives. (6) Irregular cardiac rhythm: Code(s): I49.9 - Cardiac arrhythmia, unspecified Status: Acute Assessment and Plan: Patient is on Eliquis 5 mg b.i.d. for prevention in the setting of atrial fibrillation history. He is also on amiodarone and metoprolol for rate and rhythm control. Currently sinus rhythm with LBBB (7) LOGAN (acute kidney injury): Code(s): N17.9 - Acute kidney failure, unspecified Status: Acute Assessment and Plan: Order renal ultrasound to assess for obstructive uropathy given the setting of LOGAN and UTI. (8) Diabetes mellitus: Code(s): E11.9 - Type 2 diabetes mellitus without complications Status: Acute Assessment and Plan: Patient only on metformin at home. Low-dose corrective insulin ordered and metformin held. Dietitian also consulted as patient eats but also has G-tube present if needed for additional intake. Plan Patient is currently hypotensive He had a fall of unknown origin possibly related to taking too much of his medication per his own recount. Head CT non acute. Despite low blood pressures, patient is remarkably well appearing with bounding peripheral pulses Hold home antihypertensives at this time. Obtain STAT labs including Troponin, BNP, CK, CMP, CBC IV fluids continued as patient does not currently show signs of fluid overload Insert Leonard catheter for accurate I&O in setting of serious illness
[2022-12-03 17:04] LABS: Glucose Point of Care 110 mg/dl (65-105)
[2022-12-03] MEDS: cefTRIAXone 2 GM/NS 100 ML 2 GM/100 ML BAG IVPB (20:21)
[2022-12-03 20:31] LABS: Glucose Point of Care 152 mg/dl (65-105)
[2022-12-04] VITALS (59 sets, daily range): BP systolic 107–135; BP diastolic 52–79; PULSE 71–95; RESP 9–28; TEMP 36.3–37.7; O2SAT 95–100
[2022-12-04] MEDS: CENTRAL LINE FLUSH 10 ML IV PUSH (05:05)
[2022-12-04 05:07] LABS: Basophils Percent Auto 0.4 % (0.2-1.2); Eosinophils Absolute Auto 0.1 K/mm3 (0-0.3); Eosinophils Percent Auto 0.9 % (0-4.4); Hematocrit 25.1 % (42.0-52.0); Hemoglobin 8.3 g/dL (14.0-18.0); Immature Granulocyte Absolute 0.05 K/mm3 (0.00-0.031); Immature Granulocyte Percent A 0.7 % (0-0.5); Lymphocytes Absolute Auto 0.79 K/mm3 (0.9-3.2); Lymphocytes Percent Auto 10.6 % (18.3-44.2); Mean Corpuscular HGB Conc 33.1 g/dl (32-36); Mean Corpuscular Hemoglobin 30.7 pg (26-34); Mean Platelet Volume 8.7 fl (7.4-10.4); Monocytes Absolute Auto 0.6 K/mm3 (0.1-0.6); Monocytes Percent Auto 8.2 % (2.6-8.5); Neutrophils Absolute Auto 5.9 K/mm3 (1.3-6.7); Neutrophils Percent Auto 79.2 % (45.5-73.1); Platelet Count Result 122 k/mm3 (150-375); Red Cell Distribution Width 13.8 % (11.5-14.5); White Blood Count 7.5 K/mm3 (4.5-10.0)
[2022-12-04 05:19] LABS: Alanine Aminotransferase 39 U/L (6-50); Albumin Level 2.6 g/dL (3.5-5.1); Alkaline Phosphatase 48 U/L (38-126); Anion Gap 0 mmol/L (8-16); Aspartate Amino Transferase 118 U/L (17-59); Bilirubin,Total 0.3 mg/dL (0.2-1.3); Blood Urea Nitrogen 21 mg/dL (9-20); Calcium 7.8 mg/dL (8.4-10.2); Carbon Dioxide 25 mmol/L (22-30); Chloride 106 mmol/L (98-107); Creatine Kinase 768 U/L (55-170); Estimated CRCL calculation 52 ml/min; Estimated Glomerular Filt Rate > 60; Glucose 110 mg/dL (65-110); Magnesium 1.8 mg/dL (1.6-2.3); Potassium 3.6 mmol/L (3.4-5.0); Sodium 131 mmol/L (137-145)
[2022-12-04] MEDS: CLOPIDOGREL BISULFATE 75 MG TABLET PO (08:12)
[2022-12-04] MEDS: ATORVASTATIN 40 MG TABLET 80 MG PO (08:12)
[2022-12-04] MEDS: APIXABAN 5 MG TABLET PO ×2 (08:12→20:08)
[2022-12-04] MEDS: POTASSIUM CHLORIDE 20 MEQ ER TABLET 40 MEQ PO (08:12)
[2022-12-04] MEDS: PANTOPRAZOLE SOD SESQUIHYDRATE 20 MG TAB PO (08:12)
--- NOTE | 2022-12-04 08:19 | WPDINTPN ---
Progress Note: A&P Assessment and Plan (1) Non-ST elevated myocardial infarction (non-STEMI): Code(s): I21.4 - Non-ST elevation (NSTEMI) myocardial infarction Status: Acute Assessment and Plan: Patient presented with elevated troponin with EKG showing left bundle branch block which was similar to old EKG Currently on Plavix, Lipitor, apixaban Continue telemetry monitoring Cardiology evaluated patient and waiting records from [facility] before making further decision on further workup. No plan for invasive workup at this time. Echo 1. Technically difficult exam, definity contrast used to improve visualization. ? 2. Mildly enlarged left ventricle with grade 1 diastolic noncompliance and overall adequate systolic function. ? 3. Abnormal septal motion due to left bundle branch block. ? 4. Trivial amount of MR. ? 5. Sclerotic but not stenotic aortic valve. (2) Septic shock: Code(s): A41.9 - Sepsis, unspecified organism; R65.21 - Severe sepsis with septic shock Status: Acute Assessment and Plan: Patient presented with septic shock secondary to UTI. As per report from his it appears the patient had cystoscopy on redness stay which was unremarkable as per patient's Patient blood pressure was low despite IV fluid bolus but improved on arrival to ICU and patient never required IV norepinephrine infusion blood cultures are growing Gram-negative rods. Patient has history of UTI with pansensitive E coli Currently on Rocephin which will be continued Continue IV fluids but decrease rate further Echo reviewed On review of chart patient does appear to have a history of low blood pressures in the past and was taken off of beta-surinder. He also has history of orthostatic hypotension. He has had frequent UTIs and sees urologist Dr. Ramos as an outpatient (3) UTI (urinary tract infection): Code(s): N39.0 - Urinary tract infection, site not specified Status: Acute Assessment and Plan: See above (4) Bacteremia due to Gram-negative bacteria: Code(s): R78.81 - Bacteremia Status: Acute Assessment and Plan: See above (5) LOGAN (acute kidney injury): Code(s): N17.9 - Acute kidney failure, unspecified Status: Acute Assessment and Plan: Likely multifactorial and secondary to sepsis hypotension and rhabdomyolysis Creatinine improved with IV fluids and is normal range now Continue IV fluids for rhabdomyolysis but decrease rate further CT scan of abdomen pelvis shows a nonobstructing 6 mm left kidney stone. Patient does see a urologist as an outpatient and I will defer further evaluation management to the urologist as an outpatient Monitor urine output electrolytes and creatinine (6) Rhabdomyolysis: Qualifiers: Encounter type: initial encounter Rhabdomyolysis type: traumatic Qualified Code(s): T79.6XXA - Traumatic ischemia of muscle, initial encounter Code(s): M62.82 - Rhabdomyolysis Status: Inactive Assessment and Plan: Patient presented with elevated CK likely from laying on the floor He does have elevated BNP suggestive of congestive heart failure Continue cautious IV fluids and monitor CK level Renal function is improving (7) Diabetes mellitus: Code(s): E11.9 - Type 2 diabetes mellitus without complications Status: Acute Assessment and Plan: Resume metformin Sliding scale insulin (8) Frequent falls: Code(s): R29.6 - Repeated falls Status: Acute Assessment and Plan: Patient has history of frequent falls and has history of orthostatic hypotension His head CT was negative for any acute injury Will have Physical therapy evaluate patient today (9) Irregular cardiac rhythm: Code(s): I49.9 - Cardiac arrhythmia, unspecified Status: Acute Assessment and Plan: Patient has mention of irregular cardiac rhythm in his chart although no documented history of AFib. He
[2022-12-04 08:21] LABS: Glucose Point of Care 121 mg/dl (65-105)
[2022-12-04] MEDS: KCL 20MEQ/0.9% SOD CHL 1,000 ML 50 ML IV CONT (09:42)
[2022-12-04] MEDS: metFORMIN HCL XR 500 MG TAB.SR.24H PO (10:30)
[2022-12-04] MEDS: AMIODARONE HCL 200 MG TABLET PO (10:30)
[2022-12-04 11:44] LABS: Glucose Point of Care 170 mg/dl (65-105)
--- NOTE | 2022-12-04 12:17 | WPDPN ---
Progress Note: A&P Assessment and Plan (1) Septic shock: Code(s): A41.9 - Sepsis, unspecified organism; R65.21 - Severe sepsis with septic shock Status: Acute Assessment and Plan: Hypotension and elevated lactic acid after administration 30 milliliter/kilogram bolus of isotonic fluids in the setting of UA convincing for urinary tract infection. (2) Non-ST elevated myocardial infarction (non-STEMI): Code(s): I21.4 - Non-ST elevation (NSTEMI) myocardial infarction Status: Acute Assessment and Plan: Significantly elevated troponin from outside facility. Repeat troponin ordered upon arrival. Prior ER physician believes this is related to patient's time on the ground/rhabdomyolysis rather than cardiac related. However, patient is unable to tell me if he has any symptoms of chest pain or sensation of difficulty breathing. Ordered stat EKG which shows left bundle branch block which is not significantly changed from prior EKGs. 12/04/2022 interval history: patient with fall and developed rahbdo, had elevated significantly elevated trops high of 18 and was seen by hedis registered nurse rn and does not suspect CAD, patient stats he is feeling better , upon arrival 4965 his CK levels are trending down 768 today, will continue to gently hydrate the patient will have PT/OT evaluate the patient and further recommendation to follow. (3) Rhabdomyolysis: Qualifiers: Encounter type: initial encounter Rhabdomyolysis type: traumatic Qualified Code(s): T79.6XXA - Traumatic ischemia of muscle, initial encounter Code(s): M62.82 - Rhabdomyolysis Status: Inactive Assessment and Plan: Elevated and rising creatinine kinase levels at outside facility. Patient has received at least 2.5 L or more of IV fluids and has IV fluids running at 100 mL/hr at this time. Urinalysis at outside facility shows 2+ protein, 3+ blood with only 6-10 red blood cells. (4) UTI (urinary tract infection): Code(s): N39.0 - Urinary tract infection, site not specified Status: Acute Assessment and Plan: For urinalysis findings positive nitrates, 10-15 white blood cells, 2+ urine bacteria with rare squamous epithelial cells. Patient reports dysuria symptoms since last night. Prior history of E coli UTI. Patient started on Levaquin at outside facility. (5) Essential (primary) hypertension: Code(s): I10 - Essential (primary) hypertension Status: Acute Assessment and Plan: Patient hypotensive despite fluid boluses and continuous fluids. Hold antihypertensives. (6) Irregular cardiac rhythm: Code(s): I49.9 - Cardiac arrhythmia, unspecified Status: Acute Assessment and Plan: Patient is on Eliquis 5 mg b.i.d. for prevention in the setting of atrial fibrillation history. He is also on amiodarone and metoprolol for rate and rhythm control. Currently sinus rhythm with LBBB (7) LOGAN (acute kidney injury): Code(s): N17.9 - Acute kidney failure, unspecified Status: Acute Assessment and Plan: Order renal ultrasound to assess for obstructive uropathy given the setting of LOGAN and UTI. (8) Diabetes mellitus: Code(s): E11.9 - Type 2 diabetes mellitus without complications Status: Acute Assessment and Plan: Patient only on metformin at home. Low-dose corrective insulin ordered and metformin held. Dietitian also consulted as patient eats but also has G-tube present if needed for additional intake. Plan Patient is currently hypotensive He had a fall of unknown origin possibly related to taking too much of his medication per his own recount. Head CT non acute. Despite low blood pressures, patient is remarkably well appearing with bounding peripheral pulses Hold home antihypertensives at this time. Obtain STAT labs including Troponin, BNP, CK, CMP, CBC IV fluids continued as patient does not currently show signs of fluid overload Insert Leonard cathet
[2022-12-04] MEDS: ACETAMINOPHEN 325 MG TABLET 650 MG PO (14:02)
[2022-12-04] MEDS: HYDROcodone/acetaminophen (*CRX) 5-325 MG TABLET 1 TAB PO (16:50)
[2022-12-04 16:52] LABS: Glucose Point of Care 154 mg/dl (65-105)
[2022-12-04] MEDS: cefTRIAXone 2 GM/NS 100 ML 2 GM/100 ML BAG IVPB (20:07)
[2022-12-04 20:16] LABS: Glucose Point of Care 131 mg/dl (65-105)
--- NOTE | 2022-12-04 21:15 | PC.NURSE ---
This patient, Bebo Carpenter, was transferred to [facility] on 12/04/22 at 2115. Personal belongings sent with patient. Report given to KAROL Malave. Appropriate documentation sent with patient.
[2022-12-05] VITALS (12 sets, daily range): BP systolic 119–148; BP diastolic 55–64; PULSE 76–90; RESP 16–18; TEMP 36.1–36.8; O2SAT 98–100
[2022-12-05 05:50] LABS: Basophils Percent Auto 0.2 % (0.2-1.2); Eosinophils Absolute Auto 0.1 K/mm3 (0-0.3); Hematocrit 27.1 % (42.0-52.0); Hemoglobin 8.8 g/dL (14.0-18.0); Immature Granulocyte Absolute 0.03 K/mm3 (0.00-0.031); Immature Granulocyte Percent A 0.5 % (0-0.5); Lymphocytes Absolute Auto 0.99 K/mm3 (0.9-3.2); Mean Corpuscular HGB Conc 32.5 g/dl (32-36); Mean Corpuscular Hemoglobin 30.7 pg (26-34); Mean Corpuscular Volume 94.4 fl (80-100); Monocytes Absolute Auto 0.6 K/mm3 (0.1-0.6); Monocytes Percent Auto 9.7 % (2.6-8.5); Neutrophils Absolute Auto 4.8 K/mm3 (1.3-6.7); Neutrophils Percent Auto 72.6 % (45.5-73.1); Platelet Count Result 124 k/mm3 (150-375); Red Blood Count 2.87 M/mm3 (4.6-6.20); Red Cell Distribution Width 13.6 % (11.5-14.5); White Blood Count 6.6 K/mm3 (4.5-10.0)
[2022-12-05 06:02] LABS: Alanine Aminotransferase 34 U/L (6-50); Albumin Level 2.5 g/dL (3.5-5.1); Alkaline Phosphatase 50 U/L (38-126); Anion Gap 1 mmol/L (8-16); Aspartate Amino Transferase 65 U/L (17-59); Bilirubin,Total 0.3 mg/dL (0.2-1.3); Blood Urea Nitrogen 18 mg/dL (9-20); Carbon Dioxide 25 mmol/L (22-30); Chloride 107 mmol/L (98-107); Creatine Kinase 266 U/L (55-170); Estimated CRCL calculation 57 ml/min; Estimated Glomerular Filt Rate > 60; Glucose 113 mg/dL (65-110); Magnesium 1.8 mg/dL (1.6-2.3); Potassium 4.1 mmol/L (3.4-5.0); Sodium 133 mmol/L (137-145)
[2022-12-05] MEDS: ATORVASTATIN 40 MG TABLET 80 MG PO (08:18)
[2022-12-05] MEDS: APIXABAN 5 MG TABLET PO ×2 (08:18→20:39)
[2022-12-05] MEDS: metFORMIN HCL XR 500 MG TAB.SR.24H PO (08:18)
[2022-12-05] MEDS: PANTOPRAZOLE SOD SESQUIHYDRATE 20 MG TAB PO (08:19)
[2022-12-05] MEDS: CLOPIDOGREL BISULFATE 75 MG TABLET PO (08:19)
[2022-12-05] MEDS: AMIODARONE HCL 200 MG TABLET PO (08:19)
[2022-12-05 08:56] LABS: Glucose Point of Care 113 mg/dl (65-105)
--- NOTE | 2022-12-05 10:44 | WPDPN ---
Progress Note: A&P Assessment and Plan (1) Septic shock: Code(s): A41.9 - Sepsis, unspecified organism; R65.21 - Severe sepsis with septic shock Status: Acute Assessment and Plan: Hypotension and elevated lactic acid after administration 30 milliliter/kilogram bolus of isotonic fluids in the setting of UA convincing for urinary tract infection. (2) Non-ST elevated myocardial infarction (non-STEMI): Code(s): I21.4 - Non-ST elevation (NSTEMI) myocardial infarction Status: Acute Assessment and Plan: Significantly elevated troponin from outside facility. Repeat troponin ordered upon arrival. Prior ER physician believes this is related to patient's time on the ground/rhabdomyolysis rather than cardiac related. However, patient is unable to tell me if he has any symptoms of chest pain or sensation of difficulty breathing. Ordered stat EKG which shows left bundle branch block which is not significantly changed from prior EKGs. 12/05/2022 interval history: patient with fall and developed rahbdo, had elevated significantly elevated trops high of 18 and was seen by yoga teacher and does not suspect CAD, upon arrival patient met creteria for sepsis, his chest CTA suspicous for pneuminia and his blood culture is growing, Proteus Mirabilis, patient is being treated with ceftriaxone, and doxycycline, patient stats he is feeling better , upon arrival his CK levels were 4965 CK levels are trending down 266 today, will continue to gently hydrate the patient will have PT/OT evaluate the patient and further recommendation to follow. patient will benefit going to rehab however patient is refusing, (3) Rhabdomyolysis: Qualifiers: Encounter type: initial encounter Rhabdomyolysis type: traumatic Qualified Code(s): T79.6XXA - Traumatic ischemia of muscle, initial encounter Code(s): M62.82 - Rhabdomyolysis Status: Inactive Assessment and Plan: Elevated and rising creatinine kinase levels at outside facility. Patient has received at least 2.5 L or more of IV fluids and has IV fluids running at 100 mL/hr at this time. Urinalysis at outside facility shows 2+ protein, 3+ blood with only 6-10 red blood cells. (4) UTI (urinary tract infection): Code(s): N39.0 - Urinary tract infection, site not specified Status: Acute Assessment and Plan: For urinalysis findings positive nitrates, 10-15 white blood cells, 2+ urine bacteria with rare squamous epithelial cells. Patient reports dysuria symptoms since last night. Prior history of E coli UTI. Patient started on Levaquin at outside facility. (5) Essential (primary) hypertension: Code(s): I10 - Essential (primary) hypertension Status: Acute Assessment and Plan: Patient hypotensive despite fluid boluses and continuous fluids. Hold antihypertensives. (6) Irregular cardiac rhythm: Code(s): I49.9 - Cardiac arrhythmia, unspecified Status: Acute Assessment and Plan: Patient is on Eliquis 5 mg b.i.d. for prevention in the setting of atrial fibrillation history. He is also on amiodarone and metoprolol for rate and rhythm control. Currently sinus rhythm with LBBB (7) LOGAN (acute kidney injury): Code(s): N17.9 - Acute kidney failure, unspecified Status: Acute Assessment and Plan: Order renal ultrasound to assess for obstructive uropathy given the setting of LOGAN and UTI. (8) Diabetes mellitus: Code(s): E11.9 - Type 2 diabetes mellitus without complications Status: Acute Assessment and Plan: Patient only on metformin at home. Low-dose corrective insulin ordered and metformin held. Dietitian also consulted as patient eats but also has G-tube present if needed for additional intake. Plan Patient is currently hypotensive He had a fall of unknown origin possibly related to taking too much of his medication per his own recount. Head CT non acute. Despite low blood
[2022-12-05 12:06] LABS: Glucose Point of Care 142 mg/dl (65-105)
[2022-12-05] MEDS: DOXYCYCLINE 100 MG/NS 100 ML 100 MG/100 ML BAG IVPB ×2 (12:32→21:56)
[2022-12-05 17:05] LABS: Glucose Point of Care 149 mg/dl (65-105)
[2022-12-05 20:08] LABS: Glucose Point of Care 145 mg/dl (65-105)
[2022-12-05] MEDS: cefTRIAXone 2 GM/NS 100 ML 2 GM/100 ML BAG IVPB (20:39)
[2022-12-06] VITALS (14 sets, daily range): BP systolic 120–151; BP diastolic 51–76; PULSE 78–91; RESP 15–20; TEMP 36.8–37.1; O2SAT 96–100
[2022-12-06 05:43] LABS: Basophils Percent Auto 0.2 % (0.2-1.2); Eosinophils Absolute Auto 0.1 K/mm3 (0-0.3); Eosinophils Percent Auto 1.8 % (0-4.4); Hematocrit 25.5 % (42.0-52.0); Hemoglobin 8.5 g/dL (14.0-18.0); Immature Granulocyte Absolute 0.03 K/mm3 (0.00-0.031); Immature Granulocyte Percent A 0.5 % (0-0.5); Lymphocytes Percent Auto 22.8 % (18.3-44.2); Mean Corpuscular HGB Conc 33.3 g/dl (32-36); Mean Corpuscular Hemoglobin 30.5 pg (26-34); Mean Corpuscular Volume 91.4 fl (80-100); Monocytes Absolute Auto 0.6 K/mm3 (0.1-0.6); Monocytes Percent Auto 9.8 % (2.6-8.5); Neutrophils Absolute Auto 3.7 K/mm3 (1.3-6.7); Neutrophils Percent Auto 64.9 % (45.5-73.1); Platelet Count Result 131 k/mm3 (150-375); Red Blood Count 2.79 M/mm3 (4.6-6.20); Red Cell Distribution Width 13.3 % (11.5-14.5); White Blood Count 5.7 K/mm3 (4.5-10.0)
[2022-12-06 05:52] LABS: Alanine Aminotransferase 29 U/L (6-50); Albumin Level 2.6 g/dL (3.5-5.1); Alkaline Phosphatase 52 U/L (38-126); Anion Gap 1 mmol/L (8-16); Aspartate Amino Transferase 42 U/L (17-59); Bilirubin,Total 0.3 mg/dL (0.2-1.3); Blood Urea Nitrogen 14 mg/dL (9-20); Calcium 8.4 mg/dL (8.4-10.2); Carbon Dioxide 25 mmol/L (22-30); Chloride 105 mmol/L (98-107); Creatine Kinase 94 U/L (55-170); Estimated CRCL calculation 57 ml/min; Estimated Glomerular Filt Rate > 60; Glucose 107 mg/dL (65-110); Magnesium 1.7 mg/dL (1.6-2.3); Potassium 3.6 mmol/L (3.4-5.0); Sodium 131 mmol/L (137-145)
[2022-12-06 07:55] LABS: Glucose Point of Care 110 mg/dl (65-105)
[2022-12-06] MEDS: PANTOPRAZOLE SOD SESQUIHYDRATE 20 MG TAB PO (10:03)
[2022-12-06] MEDS: metFORMIN HCL XR 500 MG TAB.SR.24H PO (10:03)
[2022-12-06] MEDS: ATORVASTATIN 40 MG TABLET 80 MG PO (10:04)
[2022-12-06] MEDS: APIXABAN 5 MG TABLET PO ×2 (10:04→21:04)
[2022-12-06] MEDS: AMIODARONE HCL 200 MG TABLET PO (10:04)
[2022-12-06] MEDS: CLOPIDOGREL BISULFATE 75 MG TABLET PO (10:05)
[2022-12-06] MEDS: DOXYCYCLINE 100 MG/NS 100 ML 100 MG/100 ML BAG IVPB (10:17)
[2022-12-06 11:57] LABS: Glucose Point of Care 142 mg/dl (65-105)
--- NOTE | 2022-12-06 13:37 | PCPTNOTE ---
Attempted to see patient for PT, however patient refused due to just getting back to bed with nursing.
--- NOTE | 2022-12-06 13:38 | PM.DS ---
DS: Summary Time Spent with Patient Time attestation: Total time spent providing and/or coordinating discharge services: DS: Data Data Completed and Pending Labs on day of discharge: Labs from last 24 hours 12/06/22 12/06/22 12/06/22 11:45 07:48 05:15 WBC 5.7 RBC 2.79 L Hgb 8.5 L Hct 25.5 L MCV 91.4 MCH 30.5 MCHC 33.3 RDW 13.3 Plt Count 131 L MPV 9.0 Immature Gran % (Auto) 0.5 Neut % (Auto) 64.9 Lymph % (Auto) 22.8 [place] % (Auto) 9.8 H Eos % (Auto) 1.8 Baso % (Auto) 0.2 Lymph # (Auto) 1.30 [place] # (Auto) 0.6 Eos # (Auto) 0.1 Baso # (Auto) 0.0 Abs Immat Gran (auto) 0.03 Absolute Neuts (auto) 3.7 Absolute Nucleated RBC 0.0 Nucleated RBC % 0.0 Sodium 131 L Potassium 3.6 Chloride 105 Carbon Dioxide 25 Anion Gap 1 L BUN 14 Creatinine 0.90 Estim Creat Clear Calc 57 Estimated GFR > 60 Glucose 107 POC Capillary Glucose 142 H 110 H Calcium 8.4 Magnesium 1.7 Total Bilirubin 0.3 AST 42 ALT 29 Alkaline Phosphatase 52 Total Creatine Kinase 94 Total Protein 5.0 L Albumin 2.6 L 12/05/22 12/05/22 19:47 16:58 WBC RBC Hgb Hct MCV MCH MCHC RDW Plt Count MPV Immature Gran % (Auto) Neut % (Auto) Lymph % (Auto) [place] % (Auto) Eos % (Auto) Baso % (Auto) Lymph # (Auto) [place] # (Auto) Eos # (Auto) Baso # (Auto) Abs Immat Gran (auto) Absolute Neuts (auto) Absolute Nucleated RBC Nucleated RBC % Sodium Potassium Chloride Carbon Dioxide Anion Gap BUN Creatinine Estim Creat Clear Calc Estimated GFR Glucose POC Capillary Glucose 145 H 149 H Calcium Magnesium Total Bilirubin AST ALT Alkaline Phosphatase Total Creatine Kinase Total Protein Albumin Discharge Plan Discharge Attending physician on discharge: Nishi Spicer Consulting providers: Latoya Farah Adarsh Discharging Clinician: Nishi Spicer Patient Disposition: Home, Self-Care Activity: as tolerated Diet: heart healthy Discharge Instructions: Patient to follow-up with his primary care provider as soon as possible, patient is instructed if any symptoms worsen to go to nearest emergency department Patient Instructions: Antibiotic Form, Apixaban (By mouth), Safe Use of Anticoagulants (GEN), Bleeding Disorders (GEN) Stand Alone Forms: General Discharge Information Follow-up/Referrals: Dereck Malcolm MD [Primary Care Provider] - Discharge Medications: New pantoprazole [Protonix] 20 mg Tablet,Delayed Release (Dr/Ec) 20 mg PO QAM Qty: 30 0RF amoxicillin-pot clavulanate [Augmentin] 500-125 mg tablet 1 tablet PO Q8H Qty: 13 0RF bisacodyl [Laxative (bisacodyl)] 5 mg Tablet,Delayed Release (Dr/Ec) 5 mg PO DAILY PRN (Reason: Constipation) Qty: 30 0RF clopidogrel 75 mg Tablet 75 mg PO QAM Qty: 30 0RF Continued furosemide 20 mg tablet 20 mg PO DAILY amiodarone 200 mg tablet 200 mg PO DAILY Eliquis 5 mg tablet 5 mg PO BID atorvastatin 80 mg tablet 80 mg PO DAILY Qty: 90 0RF metformin 500 mg tablet extended release 24 hr 500 mg PO DAILY Qty: 90 1RF Held metoprolol tartrate 25 mg tablet 12.5 mg PO BID Hold Instructions: until seen by his primary care provider Date of admission: 12/02/22 21:00 Primary Care Provider: Dereck Malcolm Admitting Provider: Kanchan Rodriguez Attending physician on admission: Kanchan Rodriguez
[2022-12-06 17:23] LABS: Glucose Point of Care 118 mg/dl (65-105)
[2022-12-06] MEDS: HYDROcodone/acetaminophen (*CRX) 5-325 MG TABLET 1 TAB PO (21:04)
[2022-12-06] MEDS: AMOXICILLIN/CLAVULANATE K 875-125 MG TAB 1 TABLET PO (21:04)
[2022-12-06 21:33] LABS: Glucose Point of Care 156 mg/dl (65-105)
[2022-12-07] VITALS (13 sets, daily range): BP systolic 112–134; BP diastolic 32–58; PULSE 74–89; RESP 18–21; TEMP 36.5–36.8; O2SAT 95–100
[2022-12-07] MEDS: AMOXICILLIN/CLAVULANATE K 875-125 MG TAB 1 TABLET PO ×3 (05:33→21:24)
[2022-12-07 05:48] LABS: Basophils Percent Auto 0.4 % (0.2-1.2); Eosinophils Absolute Auto 0.2 K/mm3 (0-0.3); Eosinophils Percent Auto 2.7 % (0-4.4); Hematocrit 25.3 % (42.0-52.0); Hemoglobin 8.2 g/dL (14.0-18.0); Immature Granulocyte Absolute 0.04 K/mm3 (0.00-0.031); Immature Granulocyte Percent A 0.7 % (0-0.5); Lymphocytes Absolute Auto 1.27 K/mm3 (0.9-3.2); Lymphocytes Percent Auto 22.6 % (18.3-44.2); Mean Corpuscular HGB Conc 32.4 g/dl (32-36); Mean Corpuscular Hemoglobin 29.5 pg (26-34); Mean Platelet Volume 9.1 fl (7.4-10.4); Monocytes Absolute Auto 0.6 K/mm3 (0.1-0.6); Monocytes Percent Auto 11.4 % (2.6-8.5); Neutrophils Absolute Auto 3.5 K/mm3 (1.3-6.7); Neutrophils Percent Auto 62.2 % (45.5-73.1); Platelet Count Result 138 k/mm3 (150-375); Red Blood Count 2.78 M/mm3 (4.6-6.20); Red Cell Distribution Width 13.1 % (11.5-14.5); White Blood Count 5.6 K/mm3 (4.5-10.0)
[2022-12-07 06:01] LABS: Alanine Aminotransferase 29 U/L (6-50); Albumin Level 2.7 g/dL (3.5-5.1); Alkaline Phosphatase 57 U/L (38-126); Anion Gap 3 mmol/L (8-16); Aspartate Amino Transferase 35 U/L (17-59); Bilirubin,Total 0.3 mg/dL (0.2-1.3); Blood Urea Nitrogen 14 mg/dL (9-20); Calcium 8.3 mg/dL (8.4-10.2); Carbon Dioxide 26 mmol/L (22-30); Chloride 104 mmol/L (98-107); Creatine Kinase 52 U/L (55-170); Estimated CRCL calculation 52 ml/min; Estimated Glomerular Filt Rate > 60; Glucose 103 mg/dL (65-110); Magnesium 1.7 mg/dL (1.6-2.3); Potassium 3.7 mmol/L (3.4-5.0); Sodium 133 mmol/L (137-145)
[2022-12-07 06:36] LABS: Acanthocytes 1+ (NORMAL); Anisocytosis 1+ (NORMAL); Poikilocytosis 1+ (NORMAL); Schistocytes 1+ (NORMAL)
[2022-12-07 08:18] LABS: Glucose Point of Care 110 mg/dl (65-105)
[2022-12-07] MEDS: metFORMIN HCL XR 500 MG TAB.SR.24H PO (09:24)
[2022-12-07] MEDS: CLOPIDOGREL BISULFATE 75 MG TABLET PO (09:24)
[2022-12-07] MEDS: APIXABAN 5 MG TABLET PO ×2 (09:25→21:24)
[2022-12-07] MEDS: PANTOPRAZOLE SOD SESQUIHYDRATE 20 MG TAB PO (09:25)
[2022-12-07] MEDS: AMIODARONE HCL 200 MG TABLET PO (09:25)
[2022-12-07] MEDS: ATORVASTATIN 40 MG TABLET 80 MG PO (09:25)
[2022-12-07] MEDS: HYDROcodone/acetaminophen (*CRX) 5-325 MG TABLET 1 TAB PO (10:48)
[2022-12-07 12:01] LABS: Glucose Point of Care 151 mg/dl (65-105)
--- NOTE | 2022-12-07 13:27 | WPDPN ---
Progress Note: A&P Assessment and Plan (1) Septic shock: Code(s): A41.9 - Sepsis, unspecified organism; R65.21 - Severe sepsis with septic shock Status: Acute Assessment and Plan: Hypotension and elevated lactic acid after administration 30 milliliter/kilogram bolus of isotonic fluids in the setting of UA convincing for urinary tract infection. (2) Non-ST elevated myocardial infarction (non-STEMI): Code(s): I21.4 - Non-ST elevation (NSTEMI) myocardial infarction Status: Acute Assessment and Plan: Significantly elevated troponin from outside facility. Repeat troponin ordered upon arrival. Prior ER physician believes this is related to patient's time on the ground/rhabdomyolysis rather than cardiac related. However, patient is unable to tell me if he has any symptoms of chest pain or sensation of difficulty breathing. Ordered stat EKG which shows left bundle branch block which is not significantly changed from prior EKGs. 12/06/2022 interval history: patient with fall and developed rahbdo, had elevated significantly elevated trops high of 18 and was seen by manager payer and does not suspect CAD, upon arrival patient met creteria for sepsis, his chest CTA suspicous for pneuminia and his blood culture is growing, Proteus Mirabilis, patient is being treated with ceftriaxone, and doxycycline, patient stats he is feeling better , upon arrival his CK levels were 4965 CK levels are trending down 94 today, plan was to discharge patient on oral Augmentin however there is concern patient is desating during sleep, apnea link was ordered, will continue to gently hydrate the patient will have PT/OT evaluate the patient and further recommendation to follow. patient will benefit going to rehab however patient is refusing, (3) Rhabdomyolysis: Qualifiers: Encounter type: initial encounter Rhabdomyolysis type: traumatic Qualified Code(s): T79.6XXA - Traumatic ischemia of muscle, initial encounter Code(s): M62.82 - Rhabdomyolysis Status: Inactive Assessment and Plan: Elevated and rising creatinine kinase levels at outside facility. Patient has received at least 2.5 L or more of IV fluids and has IV fluids running at 100 mL/hr at this time. Urinalysis at outside facility shows 2+ protein, 3+ blood with only 6-10 red blood cells. (4) UTI (urinary tract infection): Code(s): N39.0 - Urinary tract infection, site not specified Status: Acute Assessment and Plan: For urinalysis findings positive nitrates, 10-15 white blood cells, 2+ urine bacteria with rare squamous epithelial cells. Patient reports dysuria symptoms since last night. Prior history of E coli UTI. Patient started on Levaquin at outside facility. (5) Essential (primary) hypertension: Code(s): I10 - Essential (primary) hypertension Status: Acute Assessment and Plan: Patient hypotensive despite fluid boluses and continuous fluids. Hold antihypertensives. (6) Irregular cardiac rhythm: Code(s): I49.9 - Cardiac arrhythmia, unspecified Status: Acute Assessment and Plan: Patient is on Eliquis 5 mg b.i.d. for prevention in the setting of atrial fibrillation history. He is also on amiodarone and metoprolol for rate and rhythm control. Currently sinus rhythm with LBBB (7) LOGAN (acute kidney injury): Code(s): N17.9 - Acute kidney failure, unspecified Status: Acute Assessment and Plan: Order renal ultrasound to assess for obstructive uropathy given the setting of LOGAN and UTI. (8) Diabetes mellitus: Code(s): E11.9 - Type 2 diabetes mellitus without complications Status: Acute Assessment and Plan: Patient only on metformin at home. Low-dose corrective insulin ordered and metformin held. Dietitian also consulted as patient eats but also has G-tube present if needed for additional intake. Plan Patient is currently hypotensive He had a fall
--- NOTE | 2022-12-07 13:34 | WPDPN ---
Progress Note: A&P Assessment and Plan (1) Septic shock: Code(s): A41.9 - Sepsis, unspecified organism; R65.21 - Severe sepsis with septic shock Status: Acute Assessment and Plan: Hypotension and elevated lactic acid after administration 30 milliliter/kilogram bolus of isotonic fluids in the setting of UA convincing for urinary tract infection. (2) Non-ST elevated myocardial infarction (non-STEMI): Code(s): I21.4 - Non-ST elevation (NSTEMI) myocardial infarction Status: Acute Assessment and Plan: Significantly elevated troponin from outside facility. Repeat troponin ordered upon arrival. Prior ER physician believes this is related to patient's time on the ground/rhabdomyolysis rather than cardiac related. However, patient is unable to tell me if he has any symptoms of chest pain or sensation of difficulty breathing. Ordered stat EKG which shows left bundle branch block which is not significantly changed from prior EKGs. 12/07/2022 interval history: patient with fall and developed rahbdo, had elevated significantly elevated trops high of 18 and was seen by utility maintenance worker and does not suspect CAD, upon arrival patient met creteria for sepsis, his chest CTA suspicous for pneuminia and his blood culture is growing, Proteus Mirabilis, patient is being treated with ceftriaxone, and doxycycline, patient stats he is feeling better , upon arrival his CK levels were 4965 CK levels are trending down 52 today, plan was to discharge patient on oral Augmentin however there is concern patient is desating during sleep, apnea link was ordered on 2L patient desated in 70s on 2L, however apnea link needs to be done at [facility], will repeat apnea today on [facility] and plan, will continue to gently hydrate the patient will have PT/OT evaluate the patient and further recommendation to follow. patient will benefit going to rehab however patient is refusing, (3) Rhabdomyolysis: Qualifiers: Encounter type: initial encounter Rhabdomyolysis type: traumatic Qualified Code(s): T79.6XXA - Traumatic ischemia of muscle, initial encounter Code(s): M62.82 - Rhabdomyolysis Status: Inactive Assessment and Plan: Elevated and rising creatinine kinase levels at outside facility. Patient has received at least 2.5 L or more of IV fluids and has IV fluids running at 100 mL/hr at this time. Urinalysis at outside facility shows 2+ protein, 3+ blood with only 6-10 red blood cells. (4) UTI (urinary tract infection): Code(s): N39.0 - Urinary tract infection, site not specified Status: Acute Assessment and Plan: For urinalysis findings positive nitrates, 10-15 white blood cells, 2+ urine bacteria with rare squamous epithelial cells. Patient reports dysuria symptoms since last night. Prior history of E coli UTI. Patient started on Levaquin at outside facility. (5) Essential (primary) hypertension: Code(s): I10 - Essential (primary) hypertension Status: Acute Assessment and Plan: Patient hypotensive despite fluid boluses and continuous fluids. Hold antihypertensives. (6) Irregular cardiac rhythm: Code(s): I49.9 - Cardiac arrhythmia, unspecified Status: Acute Assessment and Plan: Patient is on Eliquis 5 mg b.i.d. for prevention in the setting of atrial fibrillation history. He is also on amiodarone and metoprolol for rate and rhythm control. Currently sinus rhythm with LBBB (7) LOGAN (acute kidney injury): Code(s): N17.9 - Acute kidney failure, unspecified Status: Acute Assessment and Plan: Order renal ultrasound to assess for obstructive uropathy given the setting of LOGAN and UTI. (8) Diabetes mellitus: Code(s): E11.9 - Type 2 diabetes mellitus without complications Status: Acute Assessment and Plan: Patient only on metformin at home. Low-dose corrective insulin ordered and metformin held. Dietitian also consulted as patient eats bu
[2022-12-07 17:04] LABS: Glucose Point of Care 129 mg/dl (65-105)
[2022-12-07 21:33] LABS: Glucose Point of Care 131 mg/dl (65-105)
[2022-12-08] VITALS (8 sets, daily range): BP systolic 118–134; BP diastolic 54–66; PULSE 78–88; RESP 16–20; TEMP 36.3–36.5; O2SAT 97–99
[2022-12-08] MEDS: AMOXICILLIN/CLAVULANATE K 875-125 MG TAB 1 TABLET PO ×2 (05:20→14:31)
[2022-12-08 05:46] LABS: Basophils Percent Auto 0.3 % (0.2-1.2); Eosinophils Absolute Auto 0.2 K/mm3 (0-0.3); Eosinophils Percent Auto 3.8 % (0-4.4); Hematocrit 24.9 % (42.0-52.0); Hemoglobin 8.2 g/dL (14.0-18.0); Immature Granulocyte Absolute 0.04 K/mm3 (0.00-0.031); Immature Granulocyte Percent A 0.7 % (0-0.5); Lymphocytes Absolute Auto 1.32 K/mm3 (0.9-3.2); Lymphocytes Percent Auto 21.6 % (18.3-44.2); Mean Corpuscular HGB Conc 32.9 g/dl (32-36); Mean Corpuscular Hemoglobin 29.9 pg (26-34); Mean Corpuscular Volume 90.9 fl (80-100); Monocytes Absolute Auto 0.6 K/mm3 (0.1-0.6); Monocytes Percent Auto 9.8 % (2.6-8.5); Neutrophils Absolute Auto 3.9 K/mm3 (1.3-6.7); Neutrophils Percent Auto 63.8 % (45.5-73.1); Platelet Count Result 155 k/mm3 (150-375); Red Blood Count 2.74 M/mm3 (4.6-6.20); Red Cell Distribution Width 13.3 % (11.5-14.5); White Blood Count 6.1 K/mm3 (4.5-10.0)
[2022-12-08 06:06] LABS: Alanine Aminotransferase 31 U/L (6-50); Albumin Level 2.6 g/dL (3.5-5.1); Alkaline Phosphatase 52 U/L (38-126); Anion Gap 0 mmol/L (8-16); Aspartate Amino Transferase 36 U/L (17-59); Bilirubin,Total 0.4 mg/dL (0.2-1.3); Blood Urea Nitrogen 15 mg/dL (9-20); Calcium 8.3 mg/dL (8.4-10.2); Carbon Dioxide 29 mmol/L (22-30); Chloride 102 mmol/L (98-107); Creatine Kinase 34 U/L (55-170); Estimated CRCL calculation 52 ml/min; Estimated Glomerular Filt Rate > 60; Glucose 108 mg/dL (65-110); Magnesium 1.8 mg/dL (1.6-2.3); Potassium 3.7 mmol/L (3.4-5.0); Sodium 131 mmol/L (137-145)
[2022-12-08 06:19] LABS: Hypochromasia 1+ (NORMAL); Platelet Estimate Adequate (Adequate)
[2022-12-08 06:21] LABS: Poikilocytosis 1+ (NORMAL); Schistocytes None Seen (NORMAL)
[2022-12-08 08:32] LABS: Glucose Point of Care 117 mg/dl (65-105)
[2022-12-08] MEDS: ATORVASTATIN 40 MG TABLET 80 MG PO (08:43)
[2022-12-08] MEDS: AMIODARONE HCL 200 MG TABLET PO (08:43)
[2022-12-08] MEDS: metFORMIN HCL XR 500 MG TAB.SR.24H PO (08:43)
[2022-12-08] MEDS: APIXABAN 5 MG TABLET PO (08:43)
[2022-12-08] MEDS: PANTOPRAZOLE SOD SESQUIHYDRATE 20 MG TAB PO (08:43)
[2022-12-08] MEDS: CLOPIDOGREL BISULFATE 75 MG TABLET PO (08:43)
--- NOTE | 2022-12-08 10:43 | PCNFU ---
Nutrition Follow-Up Complete: Increased Energy Needs as related to cancer hx as evidenced prior G tube feedings. Goal: Meet estimated nutritional needs. Patient is meeting goal. No new goal. Pt current nutrition is DBCC with Glucerna shakes BID Last recorded weight is 82.6 kg, weight up from 80.4 kg on admit Bowel Motility:+Bm reported 12/07 Labs Reviewed:Na 131,Alb 2.6 Meds Noted:Glucophage, Protonix Skin:WNL Additional Notes: Patient remains on a DBCC diet and tolerating. Consuming 100% diet supplements which are providing an additional 220 kcals and 9 gms protein. Agree with diet orders. Will monitor weight, labs, skin, oral intake every 7 days.
[2022-12-08 11:55] LABS: Glucose Point of Care 188 mg/dl (65-105)
--- NOTE | 2022-12-08 12:31 | PM.DS ---
DS: Admitting Diagnosis Discharge Date 12/08/2022 Admitting Diagnosis 12/02/2022 DS: Discharge Diagnosis Discharge Diagnosis (1) Septic shock: Code(s): A41.9 - Sepsis, unspecified organism; R65.21 - Severe sepsis with septic shock Status: Acute Assessment and Plan: resolved (2) Non-ST elevated myocardial infarction (non-STEMI): Code(s): I21.4 - Non-ST elevation (NSTEMI) myocardial infarction Status: Acute Assessment and Plan: Significantly elevated troponin from outside facility. Repeat troponin ordered upon arrival. Prior ER physician believes this is related to patient's time on the ground/rhabdomyolysis rather than cardiac related. However, patient is unable to tell me if he has any symptoms of chest pain or sensation of difficulty breathing. Ordered stat EKG which shows left bundle branch block which is not significantly changed from prior EKGs. 12/07/2022 interval history: patient with fall and developed rahbdo, had elevated significantly elevated trops high of 18 and was seen by ritual circumciser and does not suspect CAD, upon arrival patient met creteria for sepsis, his chest CTA suspicous for pneuminia and his blood culture is growing, Proteus Mirabilis, patient is being treated with ceftriaxone, and doxycycline, patient stats he is feeling better , upon arrival his CK levels were 4965 CK levels are trending down 52 today, plan was to discharge patient on oral Augmentin however there is concern patient is desating during sleep, apnea link was ordered on 2L patient desated in 70s on 2L, however apnea link needs to be done at [facility], will repeat apnea today on [facility] and plan, will continue to gently hydrate the patient will have PT/OT evaluate the patient and further recommendation to follow. patient will benefit going to rehab however patient is refusing. Pt looks better today ready to DC home with home health services. (3) Rhabdomyolysis: Qualifiers: Encounter type: initial encounter Rhabdomyolysis type: traumatic Qualified Code(s): T79.6XXA - Traumatic ischemia of muscle, initial encounter Code(s): M62.82 - Rhabdomyolysis Status: Inactive Assessment and Plan: resolved. (4) UTI (urinary tract infection): Code(s): N39.0 - Urinary tract infection, site not specified Status: Acute Assessment and Plan: For urinalysis findings positive nitrates, 10-15 white blood cells, 2+ urine bacteria with rare squamous epithelial cells. Patient reports dysuria symptoms since last night. Prior history of E coli UTI. now on augmentin orally (5) Essential (primary) hypertension: Code(s): I10 - Essential (primary) hypertension Status: Acute Assessment and Plan: Bp is good today (6) Irregular cardiac rhythm: Code(s): I49.9 - Cardiac arrhythmia, unspecified Status: Acute Assessment and Plan: Patient is on Eliquis 5 mg b.i.d. for prevention in the setting of atrial fibrillation history. He is also on amiodarone and metoprolol for rate and rhythm control. Currently sinus rhythm with LBBB (7) LOGAN (acute kidney injury): Code(s): N17.9 - Acute kidney failure, unspecified Status: Acute Assessment and Plan: resolved with fluids (8) Diabetes mellitus: Code(s): E11.9 - Type 2 diabetes mellitus without complications Status: Acute Assessment and Plan: Patient only on metformin at home. Low-dose corrective insulin ordered and metformin held. DS: Summary Hospital Course Hospital Course: 12/08/2022 interval history:?patient with fall and developed rahbdo, had elevated significantly elevated trops high of 18 and? was seen by ritual circumciser and does not suspect CAD, upon arrival patient met creteria for sepsis, his chest CTA suspicous for pneuminia and his blood culture is growing, Proteus Mirabilis, patient is being treated with ceftriaxone, and doxycycline,? patient stats he is feeling better , upon
[2022-12-08 17:24] LABS: Glucose Point of Care 116 mg/dl (65-105)
== END 2022-12-08 18:51 | disposition home or self-care (01) | DRG 871 ==
LOC: ANH3MED 18:09 → ANHICU 20:00 → ANH2MED 12-04 21:35
PROVIDERS: Internal Medicine; Nurse Practitioner; Admitting Provider Student in an Organized Health Care Education/Training Program; PCP Emergency Medicine; Visit Provider Family Medicine
DX: A41.9 Sepsis, unspecified organism (principal); I21.4 Non-ST elevation (NSTEMI) myocardial infarction; R65.21 Severe sepsis with septic shock; J18.9 Pneumonia, unspecified organism; N39.0 Urinary tract infection, site not specified; N17.9 Acute kidney failure, unspecified; T79.6XXA Traumatic ischemia of muscle, initial encounter; W08.XXXA Fall from other furniture, initial encounter; I44.7 Left bundle-branch block, unspecified; I49.9 Cardiac arrhythmia, unspecified; I10 Essential (primary) hypertension; E11.9 Type 2 diabetes mellitus without complications; R29.6 Repeated falls; E78.2 Mixed hyperlipidemia; G47.33 Obstructive sleep apnea (adult) (pediatric); Z86.73 Personal history of transient ischemic attack (TIA), and cerebral infarction without residual deficits; Z85.810 Personal history of malignant neoplasm of tongue; Z87.891 Personal history of nicotine dependence
CPT/HCPCS: 36415; 71275; 74150; 80053; 82550; 82948; 83036; 83605; 83690; 83735; 83880; 84484; 85025; 85380; 85610; 85730; 87081; 87086; 93005; 94762; 97110; 97161; 97165; 97530; 97535; A9270; C1751; C8929; J0696; J1644; J3480; J7030; Q9957; Q9967

== ENCOUNTER 2022-12-10 12:48 | Observation (INO) | payer MEDICARE, SELFPAY ==
[2022-12-10] VITALS (48 sets, daily range): BP systolic 100–138; BP diastolic 51–78; PULSE 76–90; RESP 8–21; TEMP 36.5–37.2; O2SAT 93–100; BMI 25.2
--- NOTE | ~2022-12-10 | XR_ITS ---
EXAMINATION: XR chest 1V portable DATE: 12/10/2022 13:14 INDICATION: Generalized weakness TECHNIQUE: frontal view of the chest was obtained. COMPARISON: Chest radiograph dated 12/02/[address] dated 12/03/2022 FINDINGS: Multiple small calcified pulmonary nodules consistent with old granulomatous disease. Persistent mild reticular opacities in the bilateral lower lung zones. Mild blunting at the costophrenic and cardiop hrenic angles suggesting very small bilateral pleural effusions. The cardiomediastinal silhouette is normal. IMPRESSION: 1. Mild opacities in bilateral lower lung zones which could represent atelectasis, mild pulmonary sky ma or less likely pneumonia. 2. Possible very small bilateral pleural effusions. Reviewed, dictated and finalized at location B. IMPRESSION: 1. Mild opacities in bilateral lower lung zones which could represent atelectas is, mild pulmonary edema or less likely pneumonia. 2. Possible very small bilateral pleural effusions.
--- NOTE | 2022-12-10 13:01 | ECG_ITS ---
Measurements Intervals [place] Rate: 80 P: 41 WA: 199 QRS: 75 QRSD: 166 T: 2 QT: 473 QTc: 546 Interpretive Statements SINUS RHYTHM LEFT BUNDLE BRANCH BLOCK [120+ ms QRS DURATION, 80+ ms Q/S IN V1/V2, 85+ ms R IN I/aVL/V5/V6] ABNORMAL ECG COMPARED TO ECG 12/02/2022 18:24:53 NO SIGNIFICANT CHANGES Electronically Signed On 12-11-2022 12:43:25 CDT by Jhonny Hampton M.D.
--- NOTE | 2022-12-10 13:01 | ED.GENADULT ---
HPI - General Adult General Chief complaint: Weakness Stated complaint: weakness Time Seen by Provider: 12/10/22 13:00 History of Present Illness HPI narrative: 82-year-old white male discharge thumb [place] 2 days ago after having a heart attack. Brought by EMS also had a history of sepsis was discharged home on antibiotics he walked to the bathroom today with his walker but then could not get up off the toilet for over an hour his called the ambulance. Her vital signs were 113/70 pulse 74 O2 sat on room air 96% respirations were 20 he is placed on normal saline his blood sugar was 155 he had an old left bundle branch block history of atrial fib. Patient says he is fine he has no complaints. Has any pain difficulty breathing cough shortness of breath lumps or bumps problems eating or drinking voiding or stooling rash or itching bleeding or bruising or any other complaints. Related Data Home Medications Medication Instructions Recorded Confirmed amiodarone 200 mg tablet 200 mg PO DAILY 09/08/22 12/02/22 apixaban 5 mg tablet (Eliquis) 5 mg PO BID 11/04/22 12/02/22 metoprolol tartrate 25 mg tablet 12.5 mg PO BID 11/04/22 12/02/22 furosemide 20 mg tablet 20 mg PO DAILY 12/02/22 12/02/22 Allergies Allergy/AdvReac Type Severity Reaction Status Date / Time No Known Allergies Allergy Verified 12/10/22 13:20 Review of Systems Review of Systems: All systems reviewed & are unremarkable except as noted in HPI and below PMFSH Past Medical History Medical History Benign hypertension 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 Cataract (lens) fragments in eye following cataract surgery, bilateral Essential (primary) hypertension History of CVA (cerebrovascular accident) Mixed hyperlipidemia Obstructive sleep apnea Surgical History Surgical History Surgical history unknown Family History Family History Mother Diabetes mellitus Hypertension Heart disease Sibling Family history of cardiovascular disease Cancer of stomach Brain cancer Family history of elevated blood lipids Family history of lung cancer Lung cancer Hypertension Heart disease Father Family history of malignant neoplasm History of cancer of stomach Other Family history of kidney disease Social History Social History Social History: The patient lives with his and has 4 children. The patient used to smoke. 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 Lack of Transportation: No Lack of Food: Never True Current Housing: I Have Housing Concerned About Future Housing: No Difficulty Paying Gas/Electric Bills: No Difficulty Paying for Meds: No Currently Unemployed: No Education: High School Diploma/GED Difficulty w/ Childcare or Family Care: No Gender identity (if verbalized by the patient): Male Sexual Orientation (if Verbalized by the Patient): Straight or Heterosexual Spiritual care concerns: No Exam Narrative: Elderly white male appears in no apparent distress head is normocephalic eyes conjunctiva pale lips are dry oropharynx is clear neck is supple no lymphadenopathy lungs showed diffuse rhonchi heart is regular rate and rhythm without murmurs gallops or rubs abdomen is soft and nontender no hepatosplenomegaly or masses no CVA tenderness. patient has old looking G-tube in his abdomen. He does not use this. Extr
[2022-12-10 13:31] LABS: Hematocrit 23.2 % (37.0-46.0); Hemoglobin 7.7 g/dL (12.4-15.3); Mean Corpuscular HGB Conc 33.2 g/dL (32.0-36.0); Mean Corpuscular Hemoglobin 30.7 pg (27.0-31.0); Mean Corpuscular Volume 92.4 fL (78.0-102.0); Mean Platelet Volume 9.6 fl (8.7-11.0); Platelet Count Result 200 K/mm3 (150-420); Red Blood Count 2.51 M/mm3 (4.70-6.10); Red Cell Distribution Width 13.2 % (11.6-14.4); White Blood Count 5.6 K/mm3 (4.8-10.8)
[2022-12-10 13:46] LABS: Prothrombin Time 11.3 Seconds (9.50-12.10)
[2022-12-10 14:03] LABS: Lactic Acid Reflex 0.7 mmol/L (0.4-2.0)
[2022-12-10 14:08] LABS: Troponin I 340.5 ng/L (0.00-60.4)
--- NOTE | 2022-12-10 14:08 | PC.NURSE ---
Lab to Rn, elevated Troponin 340.5, ERP made aware.
[2022-12-10 14:24] LABS: Alanine Aminotransferase 26 U/L (16-63); Albumin Level 2.8 g/dL (3.4-5.0); Alkaline Phosphatase 62 U/L (46-116); Anion Gap 8 mmol/L (8-16); Aspartate Amino Transferase 33 U/L (15-37); Bilirubin,Total 0.4 mg/dL (0.00-1.00); Blood Urea Nitrogen 17 mg/dL (7-18); Calcium 9.2 mg/dL (8.5-10.1); Carbon Dioxide 29 mmol/L (21-32); Chloride 103 mmol/L (98-108); Estimated CRCL calculation 48 ml/min; Estimated Glomerular Filt Rate > 60; Glucose 115 mg/dL (70-99); Magnesium 2.1 mg/dL (1.8-2.4); Osmolality Calculated 292 mOsm/kg (285-295); Potassium 3.9 mmol/L (3.5-5.1); Sodium 140 mmol/L (136-145); Total Protein 6.8 g/dL (6.4-8.2)
[2022-12-10 15:20] LABS: Appearance Urine Clear (Clear); Bilirubin Urine Negative (Negative); Blood Urine Negative (Negative); Color Urine Light Yellow (Yellow); Glucose Urine UA Negative (Negative); Ketones Urine Trace (Negative); Leukocyte Esterase Ur Negative LEU/UL (Negative); Nitrate Urine Negative (Negative); Protein Urine Negative (Negative); Specific Grav Ur >= 1.030 (1.010-1.020); Urobilinogen Urine 0.2 mg/dL (0.2-1.0)
[2022-12-10 15:34] LABS: Add Urine Microscopic? YES; Bacteria Urine Trace /hpf; RBC Urine None seen /hpf (0-2); Squamous Epithelial Cell Urine Rare /hpf (Few); WBC Urine None seen /hpf (0-3)
[2022-12-10 17:14] LABS: Troponin I 307.3 ng/L (0.00-60.4)
--- NOTE | 2022-12-10 18:05 | PC.NURSE ---
Patient arrived on unit via stretcher from ED. Patient required 3 assist transfer from stretcher to bed. Patient educated on use of call light, bed controls, hospital visiting hours, use of rapid response, fall precautions, and infection prevention. Patient voiced understanding. Patient's daughter at bedside. Physical assessment revealed an open area on the top of patient's R buttock. Patient also has coban wrapped around R wrist covering a small skin tear that he sustained in the ER. Patient resting in bed with family at his side.
[2022-12-10] MEDS: SODIUM CHLORIDE 0.9% IV 250 ML 30 ML IV CONT (18:40)
--- NOTE | 2022-12-10 19:44 | PM.IMHP ---
H&P: HPI History of Present Illness Date/Time: 12/10/22 19:44 Chief Complaint: generalized weakness Narrative: This is an 82-year-old male patient who was brought to the emergency department for generalized weakness. He was recently admitted to [facility] for urinary tract infection with sepsis and was discharged home 2 days ago. He was doing well on day of discharge as well as yesterday but today he began to get very weak having difficulty ambulating with walker. He was unable to get up off of the toilet and the EMS had to be called. Patient does not complain of any pain at this time but is noted to be having some moderate dyspnea with rhonchus airway noises. Chest x-ray obtained in the emergency department showed atelectasis versus pulmonary edema less likely pneumonia. Patient does take furosemide daily but did not take any of his medications today. He currently denies any complaints of thought that he was feeling well. In the emergency department he was noted to have significant anemia that has slowly decreased over time currently hemoglobin of 7.7. Patient had type 2 [place] when he was admitted for sepsis. Decision made to transfuse patient 1 unit packed red blood cells and recheck H&H with a goal hemoglobin of 8. Occult stool ordered. 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 Cataract (lens) fragments in eye following cataract surgery, bilateral Essential (primary) hypertension History of CVA (cerebrovascular accident) Mixed hyperlipidemia Non-ST elevated myocardial infarction (non-STEMI) Obstructive sleep apnea Septic shock Surgical History Surgical History Surgical history unknown Family History Family History Mother Diabetes mellitus Hypertension Heart disease Sibling Family history of cardiovascular disease Cancer of stomach Brain cancer Family history of elevated blood lipids Family history of lung cancer Lung cancer Hypertension Heart disease Father Family history of malignant neoplasm History of cancer of stomach Other Family history of kidney disease Social History Social History Social History: The patient lives with his and has 4 children. The patient used to smoke. Code status changed to DNR on 12/10/22 admission Smoking packs per day: 2 Smoking cigarettes per day: 40.0 Years smoked: 40 Smoking pack-years: 80.00 Smoking status: Former smoker Tobacco type: cigarettes Second hand tobacco smoke exposure: Yes Additional smoking assessment comments: smoked on occassion nothing for lengths of time Alcohol intake: former Substance use: never Other substance usage details: former 2-3 6 pks a day Lack of Transportation: No Lack of Food: Never True Current Housing: I Have Housing Concerned About Future Housing: No Difficulty Paying Gas/Electric Bills: No Difficulty Paying for Meds: No Currently Unemployed: No Education: High School Diploma/GED Difficulty w/ Childcare or Family Care: No Gender identity (if verbalized by the patient): Male Sexual Orientation (if Verbalized by the Patient): Straight or Heterosexual Spiritual care concerns: No Meds Home Medications and Allergies Home Medications Medication Instructions Recorded Confirmed Type atorvastatin 80 mg tablet 80 mg PO DAILY #90 tabs 07/22/22 12/02/22 Rx amiodarone 200 mg tablet 200 mg PO DAILY 09/08/22 12/02/22 History apixaban 5 mg tablet (Eliquis) 5 mg PO BID 11/04/22
--- NOTE | 2022-12-10 20:51 | PC.NURSE ---
Patient sleeping. No signs of distress or reaction to transfusion.
[2022-12-10] MEDS: IPRATROPIUM 0.5 MG/ALBUTEROL SULFATE 2.5 MG AMPUL.NEB 3 ML INHALATION (21:08)
--- NOTE | 2022-12-10 21:48 | PC.NURSE ---
Patient resting quietly. call light and belongings within reach. Transfusion running without difficulty. Patient tolerating well.
[2022-12-10] MEDS: METOPROLOL TARTRATE 12.5 MG TABLET PO (23:01)
[2022-12-10] MEDS: FUROSEMIDE INJ 40 MG/4 ML VIAL IV PUSH (23:01)
[2022-12-10] MEDS: QUEtiapine FUMARATE 25 MG TABLET 50 MG PO (23:02)
[2022-12-10] MEDS: AMOXICILLIN/CLAVULANATE K 500-125 MG TAB 1 TABLET PO (23:02)
[2022-12-11] VITALS (19 sets, daily range): BP systolic 103–113; BP diastolic 55–62; PULSE 68–86; RESP 15–20; TEMP 36.3–36.7; O2SAT 92–99
[2022-12-11 00:08] LABS: Hematocrit 25.6 % (37.0-46.0); Hemoglobin 8.8 g/dL (12.4-15.3)
--- NOTE | 2022-12-11 00:08 | PC.NURSE ---
Pt resting quietly in bed and doesnt voice any c/o discomfort.
--- NOTE | 2022-12-11 00:15 | PC.NURSE ---
Blood transfusion completed. No s/s of reaction. Tolerated well. Lab notified of time for H and H to be drawn.
--- NOTE | 2022-12-11 00:23 | PC.NURSE ---
Patient observed snoring and has episodes of apnea. Apnea last less than 5 seconds.
[2022-12-11] MEDS: IPRATROPIUM 0.5 MG/ALBUTEROL SULFATE 2.5 MG AMPUL.NEB 3 ML INHALATION ×5 (00:34→23:33)
--- NOTE | 2022-12-11 01:00 | PC.NURSE ---
Respiratory therapy placed pt on 1.5 liters of oxygen due to his sleep apnea
--- NOTE | 2022-12-11 05:30 | PC.NURSE ---
Pt has two slightly scabbed areas to his buttocks, both about 0.5 cm each. Photos taken and barrier cream applied.
--- NOTE | 2022-12-11 05:57 | PC.NURSE ---
Pt's weight was 75.3
[2022-12-11] MEDS: AMOXICILLIN/CLAVULANATE K 500-125 MG TAB 1 TABLET PO ×3 (06:05→21:11)
[2022-12-11 06:53] LABS: Hemoglobin 8.5 g/dL (12.4-15.3); Mean Corpuscular Hemoglobin 30.7 pg (27.0-31.0); Mean Corpuscular Volume 90.3 fL (78.0-102.0); Mean Platelet Volume 8.6 fl (8.7-11.0); Platelet Count Result 173 K/mm3 (150-420); Red Blood Count 2.77 M/mm3 (4.70-6.10); Red Cell Distribution Width 13.4 % (11.6-14.4); White Blood Count 5.2 K/mm3 (4.8-10.8)
[2022-12-11 07:03] LABS: Anion Gap 5 mmol/L (8-16); Blood Urea Nitrogen 16 mg/dL (7-18); Calcium 8.7 mg/dL (8.5-10.1); Carbon Dioxide 33 mmol/L (21-32); Chloride 105 mmol/L (98-108); Estimated CRCL calculation 42 ml/min; Estimated Glomerular Filt Rate 55; Glucose 99 mg/dL (70-99); Osmolality Calculated 297 mOsm/kg (285-295); Potassium 3.6 mmol/L (3.5-5.1); Sodium 143 mmol/L (136-145)
[2022-12-11] MEDS: FUROSEMIDE INJ 40 MG/4 ML VIAL 20 MG IV PUSH ×2 (09:18→16:40)
--- NOTE | 2022-12-11 09:55 | ECG_ITS ---
Measurements Intervals [place] Rate: 75 P: 38 NH: 186 QRS: -8 QRSD: 161 T: 71 QT: 470 QTc: 528 Interpretive Statements SINUS RHYTHM LEFT BUNDLE BRANCH BLOCK [120+ ms QRS DURATION, 80+ ms Q/S IN V1/V2, 85+ ms R IN I/aVL/V5/V6] ABNORMAL ECG COMPARED TO ECG 12/10/2022 13:27:41 NO SIGNIFICANT CHANGES Electronically Signed On 12-11-2022 12:44:35 CDT by Jhonny Hampton M.D.
--- NOTE | 2022-12-11 11:58 | PM.IMPN ---
Progress Note: A&P Assessment and Plan (1) Generalized weakness: Code(s): R53.1 - Weakness Status: Acute Assessment and Plan: Patient remains significantly weak and sleeps throughout the majority of the day. Work with PT/OT, will need SNF upon discharge, may need [facility] memory care/longterm placement. (2) Anemia: Qualifiers: Anemia type: unspecified type Qualified Code(s): D64.9 - Anemia, unspecified Code(s): D64.9 - Anemia, unspecified Status: Acute Assessment and Plan: 12/11: hemoglobin 8.8 after transfusion, will check a.m. labs tomorrow, Hemoccult stools ordered routine (3) Diastolic CHF with preserved left ventricular function, NYHA class 2: Code(s): I50.30 - Unspecified diastolic (congestive) heart failure Status: Acute Assessment and Plan: IV Lasix and Leonard catheter for accurate I and O. Patient is requiring supplemental oxygenation at this time. (4) Prolonged Q-T interval on ECG: Code(s): R94.31 - Abnormal electrocardiogram [ECG] [EKG] Status: Acute Assessment and Plan: QTC 528 on repeat EKG. Continue to monitor (5) Diabetes mellitus: Code(s): E11.9 - Type 2 diabetes mellitus without complications Status: Acute Assessment and Plan: Recent hemoglobin A1c 5.5 from earlier this month.? Continue metformin and daily labs.? No fingerstick glucose or insulin supplementation at this time (6) : Code(s): F05 - Delirium due to known physiological condition Status: Acute Assessment and Plan: Seroquel 50 mg at night for sleep and anxiety agitation Time Spent With Patient Time with patient: 25 - 35 minutes Subjective Date/time seen: 12/11/22 11:58 Interval history: 12/10: Chief Complaint: generalized weakness Narrative: This is an 82-year-old male patient who was brought to the emergency department for generalized weakness.? He was recently admitted to [facility] for urinary tract infection with sepsis and was discharged home 2 days ago.? He was doing well on day of discharge as well as yesterday but today he began to get very weak having difficulty ambulating with walker.? He was unable to get up off of the toilet and the EMS had to be called.? Patient does not complain of any pain at this time but is noted to be having some moderate dyspnea with rhonchus airway noises.? Chest x-ray obtained in the emergency department showed atelectasis versus pulmonary edema less likely pneumonia.? Patient does take furosemide daily but did not take any of his medications today.? He currently? denies any complaints of thought that he was feeling well.? In the emergency department he was noted to have significant anemia that has slowly decreased over time currently hemoglobin of 7.7.? Patient had type 2 [place] when he was admitted for sepsis.? Decision made to transfuse patient 1 unit packed red blood cells and recheck H&H with a goal hemoglobin of 8.? Occult stool ordered. 12/11: Patient seen sleeping in bed with at bedside. She noted that patient has been sleeping throughout the day frequently for the past 6 months. She reports that he has been progressively weaker since he was discharged from [facility] and he she was unable to get him out of the bathroom and off of the toilet and had to call 911 for assistance. She notes that patient has been more confused and that he is unable to participate in a lot of his usual activities of daily living. She is mostly concerned that the new acute weakness is causing difficulty maintaining patient at home at this time. When patient was awakened he was confused but had no complaints. He denied difficulty breathing despite evidence of wheezing and oxygen demand. Review of Systems Review of Systems: ROS unobtainable: Yes unobtainable due to mental status ( Noted to be confused patient's daughter states er's) Exam Narrative: GENERAL: At t
[2022-12-11] MEDS: METOPROLOL TARTRATE 12.5 MG TABLET PO (21:09)
[2022-12-12] VITALS (13 sets, daily range): BP systolic 109–129; BP diastolic 59–78; PULSE 63–85; RESP 16–18; TEMP 36.3–36.6; O2SAT 91–99
[2022-12-12] MEDS: AMOXICILLIN/CLAVULANATE K 500-125 MG TAB 1 TABLET PO ×3 (05:47→21:49)
[2022-12-12 06:19] LABS: Hematocrit 27.4 % (37.0-46.0); Mean Corpuscular HGB Conc 32.8 g/dL (32.0-36.0); Mean Corpuscular Volume 91.3 fL (78.0-102.0); Mean Platelet Volume 9.3 fl (8.7-11.0); Platelet Count Result 221 K/mm3 (150-420); Red Cell Distribution Width 13.4 % (11.6-14.4); White Blood Count 7.2 K/mm3 (4.8-10.8)
[2022-12-12] MEDS: IPRATROPIUM 0.5 MG/ALBUTEROL SULFATE 2.5 MG AMPUL.NEB 3 ML INHALATION ×3 (06:19→18:34)
[2022-12-12 06:29] LABS: Anion Gap 4 mmol/L (8-16); Blood Urea Nitrogen 16 mg/dL (7-18); Calcium 8.7 mg/dL (8.5-10.1); Carbon Dioxide 37 mmol/L (21-32); Chloride 101 mmol/L (98-108); Estimated CRCL calculation 42 ml/min; Estimated Glomerular Filt Rate 56; Glucose 105 mg/dL (70-99); Osmolality Calculated 295 mOsm/kg (285-295); Potassium 3.4 mmol/L (3.5-5.1); Sodium 142 mmol/L (136-145)
[2022-12-12] MEDS: FUROSEMIDE INJ 40 MG/4 ML VIAL 20 MG IV PUSH ×2 (09:04→16:58)
[2022-12-12] MEDS: AMIODARONE HCL 200 MG TABLET PO (09:05)
[2022-12-12] MEDS: ATORVASTATIN 40 MG TABLET 80 MG PO (09:05)
[2022-12-12] MEDS: METOPROLOL TARTRATE 12.5 MG TABLET PO ×2 (09:05→21:49)
[2022-12-12] MEDS: PANTOPRAZOLE SOD SESQUIHYDRATE 20 MG TAB PO (09:06)
[2022-12-12] MEDS: HYDROcodone/acetaminophen (*CRX) 5-325 MG TABLET 1 TAB PO (09:18)
--- NOTE | 2022-12-12 15:09 | PM.IMPN ---
Progress Note: A&P Assessment and Plan (1) Generalized weakness: Code(s): R53.1 - Weakness Status: Acute Assessment and Plan: Patient remains significantly weak and sleeps throughout the majority of the day. Work with PT/OT, will need SNF upon discharge, may need senior living memory care/half-way placement. (2) Anemia: Qualifiers: Anemia type: unspecified type Qualified Code(s): D64.9 - Anemia, unspecified Code(s): D64.9 - Anemia, unspecified Status: Acute Assessment and Plan: 12/11: hemoglobin 8.8 after transfusion, will check a.m. labs tomorrow, Hemoccult stools ordered routine 12/12: hemoglobin 9.0 and Hemoccult ordered (3) Diastolic CHF with preserved left ventricular function, NYHA class 2: Code(s): I50.30 - Unspecified diastolic (congestive) heart failure Status: Acute Assessment and Plan: 12/11: IV Lasix and Leonard catheter for accurate I and O. Patient is requiring supplemental oxygenation at this time. 12/12: patient is on room air. Will remove Leonard catheter. (4) Prolonged Q-T interval on ECG: Code(s): R94.31 - Abnormal electrocardiogram [ECG] [EKG] Status: Acute Assessment and Plan: QTC 528 on repeat EKG. Continue to monitor (5) Diabetes mellitus: Code(s): E11.9 - Type 2 diabetes mellitus without complications Status: Acute Assessment and Plan: Recent hemoglobin A1c 5.5 from earlier this month.? Continue metformin and daily labs.? No fingerstick glucose or insulin supplementation at this time (6) : Code(s): F05 - Delirium due to known physiological condition Status: Acute Assessment and Plan: Seroquel 25 mg at night for sleep and anxiety agitation. Higher dose of 50 mg made patient sleepy all day. Plan supportive care, case management, physical therapy and occupational therapy, oxygen PRN Time Spent With Patient Time with patient: 25 - 35 minutes Subjective Date/time seen: 12/12/22 15:09 Interval history: 12/10: Chief Complaint: generalized weakness Narrative: This is an 82-year-old male patient who was brought to the emergency department for generalized weakness.? He was recently admitted to [facility] for urinary tract infection with sepsis and was discharged home 2 days ago.? He was doing well on day of discharge as well as yesterday but today he began to get very weak having difficulty ambulating with walker.? He was unable to get up off of the toilet and the EMS had to be called.? Patient does not complain of any pain at this time but is noted to be having some moderate dyspnea with rhonchus airway noises.? Chest x-ray obtained in the emergency department showed atelectasis versus pulmonary edema less likely pneumonia.? Patient does take furosemide daily but did not take any of his medications today.? He currently? denies any complaints of thought that he was feeling well.? In the emergency department he was noted to have significant anemia that has slowly decreased over time currently hemoglobin of 7.7.? Patient had type 2 [place] when he was admitted for sepsis.? Decision made to transfuse patient 1 unit packed red blood cells and recheck H&H with a goal hemoglobin of 8.? Occult stool ordered. 12/11: Patient seen sleeping in bed with at bedside. She noted that patient has been sleeping throughout the day frequently for the past 6 months. She reports that he has been progressively weaker since he was discharged from [facility] and he she was unable to get him out of the bathroom and off of the toilet and had to call 911 for assistance. She notes that patient has been more confused and that he is unable to participate in a lot of his usual activities of daily living. She is mostly concerned that the new acute weakness is causing difficulty maintaining patient at home at this time. When patient was awakened he was confused but had no complaints. He denied difficul
[2022-12-12] MEDS: POTASSIUM CHLORIDE 20 MEQ ER TABLET 40 MEQ PO (16:59)
[2022-12-12] MEDS: QUEtiapine FUMARATE 25 MG TABLET PO (21:50)
[2022-12-13] VITALS (9 sets, daily range): BP systolic 117–122; BP diastolic 53–68; PULSE 66–82; RESP 14–18; TEMP 36.2–36.3; O2SAT 91–98
[2022-12-13] MEDS: IPRATROPIUM 0.5 MG/ALBUTEROL SULFATE 2.5 MG AMPUL.NEB 3 ML INHALATION ×3 (00:41→12:45)
[2022-12-13] MEDS: AMOXICILLIN/CLAVULANATE K 500-125 MG TAB 1 TABLET PO ×2 (05:08→13:15)
[2022-12-13 05:27] LABS: Hematocrit 26.4 % (37.0-46.0); Hemoglobin 8.8 g/dL (12.4-15.3); Mean Corpuscular HGB Conc 33.3 g/dL (32.0-36.0); Mean Corpuscular Hemoglobin 30.7 pg (27.0-31.0); Platelet Count Result 214 K/mm3 (150-420); Red Blood Count 2.87 M/mm3 (4.70-6.10); Red Cell Distribution Width 13.2 % (11.6-14.4); White Blood Count 6.3 K/mm3 (4.8-10.8)
[2022-12-13 05:38] LABS: Anion Gap 2 mmol/L (8-16); Blood Urea Nitrogen 15 mg/dL (7-18); Calcium 8.8 mg/dL (8.5-10.1); Carbon Dioxide 38 mmol/L (21-32); Chloride 101 mmol/L (98-108); Estimated CRCL calculation 42 ml/min; Estimated Glomerular Filt Rate 55; Glucose 103 mg/dL (70-99); Osmolality Calculated 292 mOsm/kg (285-295); Sodium 141 mmol/L (136-145)
[2022-12-13] MEDS: HYDROcodone/acetaminophen (*CRX) 5-325 MG TABLET 1 TAB PO (08:01)
[2022-12-13] MEDS: METOPROLOL TARTRATE 12.5 MG TABLET PO (09:03)
[2022-12-13] MEDS: ATORVASTATIN 40 MG TABLET 80 MG PO (09:03)
[2022-12-13] MEDS: PANTOPRAZOLE SOD SESQUIHYDRATE 20 MG TAB PO (09:03)
[2022-12-13] MEDS: FUROSEMIDE INJ 40 MG/4 ML VIAL 20 MG IV PUSH (09:03)
[2022-12-13] MEDS: AMIODARONE HCL 200 MG TABLET PO (09:04)
--- NOTE | 2022-12-13 13:48 | PM.DS ---
DS: Admitting Diagnosis Discharge Date 12/13/22 Admitting Diagnosis anemia DS: Discharge Diagnosis Discharge Diagnosis (1) Generalized weakness: Code(s): R53.1 - Weakness Status: Acute Assessment and Plan: Patient remains significantly weak and sleeps throughout the majority of the day. Work with PT/OT, will need SNF upon discharge, may need [facility] memory care/half-way placement. (2) Anemia: Qualifiers: Anemia type: unspecified type Qualified Code(s): D64.9 - Anemia, unspecified Code(s): D64.9 - Anemia, unspecified Status: Acute Assessment and Plan: 12/11: hemoglobin 8.8 after transfusion, will check a.m. labs tomorrow, Hemoccult stools ordered routine 12/12: hemoglobin 9.0 and Hemoccult ordered 12/13: Hgb 8.8, Hct 26.4. Iron level from 06/09/22 was slightly low at 47. Does not seem to have Fe replacement on home meds. Can add Ferrous sulfate BID. (3) Diastolic CHF with preserved left ventricular function, NYHA class 2: Code(s): I50.30 - Unspecified diastolic (congestive) heart failure Status: Acute Assessment and Plan: 12/11: IV Lasix and Leonard catheter for accurate I and O. Patient is requiring supplemental oxygenation at this time. 12/12: patient is on room air. Will remove Leonard catheter. 12/13: Can transition to PO lasix today (4) Prolonged Q-T interval on ECG: Code(s): R94.31 - Abnormal electrocardiogram [ECG] [EKG] Status: Acute Assessment and Plan: QTC 528 on repeat EKG. Continue to monitor (5) Diabetes mellitus: Code(s): E11.9 - Type 2 diabetes mellitus without complications Status: Acute Assessment and Plan: Recent hemoglobin A1c 5.5 from earlier this month.? Continue metformin and daily labs.? No fingerstick glucose or insulin supplementation at this time (6) : Code(s): F05 - Delirium due to known physiological condition Status: Acute Assessment and Plan: Seroquel 25 mg at night for sleep and anxiety agitation. Higher dose of 50 mg made patient sleepy all day. Plan supportive care, case management, physical therapy and occupational therapy, oxygen PRN DS: Summary Hospital Course Hospital Course: This is an 82-year-old male patient who was brought to the emergency department for generalized weakness.? He was recently admitted to [facility] for urinary tract infection with sepsis and was discharged home 2 days ago.? He was doing well on day of discharge as well as yesterday but today he began to get very weak having difficulty ambulating with walker.? He was unable to get up off of the toilet and the EMS had to be called.? Patient does not complain of any pain at this time but is noted to be having some moderate dyspnea with rhonchus airway noises.? Chest x-ray obtained in the emergency department showed atelectasis versus pulmonary edema less likely pneumonia.? Patient does take furosemide daily but did not take any of his medications today.? He currently? denies any complaints of thought that he was feeling well.? In the emergency department he was noted to have significant anemia that has slowly decreased over time currently hemoglobin of 7.7.? Patient had type 2 [place] when he was admitted for sepsis.? Decision made to transfuse patient 1 unit packed red blood cells and recheck H&H with a goal hemoglobin of 8.? Occult stool ordered. 12/11:? Patient seen sleeping in bed with at bedside.? She noted that patient has been sleeping throughout the day frequently for the past 6 months.? She reports that he has been progressively weaker since he was discharged from [facility] and he she was unable to get him out of the bathroom and off of the toilet and had to call 911 for assistance.? She notes that patient has been more confused and that he is unable to participate in a lot of his usual activities of daily living.? She is mostly concerned that the new acute weakness is cau
--- NOTE | 2022-12-13 14:52 | PC.NURSE ---
Pt transferring to swing bed from OBS status. RO
== END 2022-12-13 14:49 | disposition swing bed (61) ==
LOC: CHSED 17:40 → CHS2ND 17:43
PROVIDERS: Nurse Practitioner; Admitting Provider Internal Medicine; Emergency Provider Emergency Medicine; PCP Emergency Medicine; Visit Provider Internal Medicine
DX: R53.1 Weakness (principal); I21.A1 Myocardial infarction type 2; I11.0 Hypertensive heart disease with heart failure; I50.32 Chronic diastolic (congestive) heart failure; D64.9 Anemia, unspecified; E11.9 Type 2 diabetes mellitus without complications; E78.5 Hyperlipidemia, unspecified; R77.8 Other specified abnormalities of plasma proteins; G47.33 Obstructive sleep apnea (adult) (pediatric); F05 Delirium due to known physiological condition; Z79.02 Long term (current) use of antithrombotics/antiplatelets; Z86.73 Personal history of transient ischemic attack (TIA), and cerebral infarction without residual deficits; Z85.810 Personal history of malignant neoplasm of tongue; Z87.891 Personal history of nicotine dependence
CPT/HCPCS: 36415; 36430; 71045; 80048; 80053; 81001; 82272; 83605; 83735; 84484; 85014; 85018; 85027; 85610; 85730; 86850; 86900; 86901; 86920; 87040; 87086; 93005; 94640; 96361; 96374; 96376; 97161; 97530; 99285; A9270; G0378; J1940; J7050; P9016

== ENCOUNTER 2022-12-13 14:50 | Inpatient (IN) | payer MEDICARE, SELFPAY ==
[2022-12-13 14:50] VITALS: BMI 25.2
--- NOTE | 2022-12-13 14:50 | PC.NURSE ---
Patient discharged from observation status and admitted as a swing bed.
--- NOTE | 2022-12-13 15:41 | PM.IMHP ---
H&P: HPI History of Present Illness Date/Time: 12/13/22 15:41 Chief Complaint: Weakness Narrative: This is an 82-year-old male patient who was brought to the emergency department for generalized weakness.? He was recently admitted to [facility] for urinary tract infection with sepsis and was discharged home 2 days ago.? He was doing well on day of discharge as well as yesterday but today he began to get very weak having difficulty ambulating with walker.? He was unable to get up off of the toilet and the EMS had to be called.? Patient does not complain of any pain at this time but is noted to be having some moderate dyspnea with rhonchus airway noises.? Chest x-ray obtained in the emergency department showed atelectasis versus pulmonary edema less likely pneumonia.? Patient does take furosemide daily but did not take any of his medications today.? He currently? denies any complaints of thought that he was feeling well.? In the emergency department he was noted to have significant anemia that has slowly decreased over time currently hemoglobin of 7.7.? Patient had type 2 [place] when he was admitted for sepsis.? Decision made to transfuse patient 1 unit packed red blood cells and recheck H&H with a goal hemoglobin of 8.? Occult stool ordered. 12/11:? Patient seen sleeping in bed with at bedside.? She noted that patient has been sleeping throughout the day frequently for the past 6 months.? She reports that he has been progressively weaker since he was discharged from [facility] and he she was unable to get him out of the bathroom and off of the toilet and had to call 911 for assistance.? She notes that patient has been more confused and that he is unable to participate in a lot of his usual activities of daily living.? She is mostly concerned that the new acute weakness is causing difficulty maintaining patient at home at this time.? When patient was awakened he was confused but had no complaints.? He denied difficulty breathing despite evidence of wheezing and oxygen demand. 12/12: Patient seen awake confused but states that he is feeling better.? Oxygen is off.? He is not dyspneic.? Leonard catheter in place with clear yellow urine draining.? Patient reports he has been up to the chair but is still very weak.? Patient's at bedside states that he is still too weak to go.? Patient will? remain hospitalized overnight at work with Case Management on SNF placement for acute rehabilitation.? Patient also to work with physical therapy and occupational therapy. 12/13:? Bebo is sitting up in chair after working with therapy.? He says he feels well today.? He is alert and oriented to person, he noted the hospital but he thinks it is in the right, and he is unsure of the year.? He is on room air and does not appear in respiratory distress.? His Leonard catheter was removed yesterday and he is voiding spontaneously.? Hemoglobin remains stable at 8.8.? Last iron panel in June of this year shows low iron of 47, will start on ferrous sulfate.?He has been on Augmentin for a UTI. Chart review shows the medication starting treatment on 12/03. Patient was bacteremic with urosepsis; blood cultures grew proteus mirabilis susceptible to Augmentin. Continue Augmentin with EOT on 12/16. Patient is being admitted to swing bed today for continued therapy for weakness and deconditioning. 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
[2022-12-13 15:48] VITALS: BP 103/48; PULSE 67; RESP 16; TEMP 36.3; O2SAT 97
[2022-12-13 15:57] VITALS: BP 103/48; PULSE 67; RESP 16; TEMP 36.3; O2SAT 97
--- NOTE | 2022-12-13 16:22 | PC.NURSE ---
Patient encouraged to drink more liquids. Patient has had 200 ml urine out today. Residential Manager noted that patient has not been drinking much, so advertising writer gave patient a diet pepsi and told patient that he needs to drink more fluids to help his bladder to work.
[2022-12-13 16:33] LABS: Glucose Point of Care 184 mg/dl (65-105)
--- NOTE | 2022-12-13 16:38 | PC.NURSE ---
IV sites discontinued due to change in admission status. Patient is now on PO medications. Patient tolerated IV removal well.
--- NOTE | 2022-12-13 16:50 | PC.NURSE ---
Therapy told video game script writer that patient had one unmeasured void while therapy was working with him.
[2022-12-13 17:12] VITALS: PULSE 77
[2022-12-13] MEDS: METOPROLOL TARTRATE 12.5 MG TABLET PO (17:12)
[2022-12-13] MEDS: FUROSEMIDE 20 MG TABLET PO (17:12)
[2022-12-13] MEDS: AMOXICILLIN/CLAVULANATE K 500-125 MG TAB 1 TABLET PO ×2 (17:12→21:21)
[2022-12-13] MEDS: FERROUS SULFATE 325 MG TABLET DR PO (17:12)
[2022-12-13] MEDS: QUEtiapine FUMARATE 25 MG TABLET PO (21:20)
[2022-12-13 21:43] LABS: Glucose Point of Care 131 mg/dl (65-105)
[2022-12-14] VITALS (7 sets, daily range): BP systolic 117–128; BP diastolic 56–62; PULSE 62–69; RESP 16–18; TEMP 36.1–36.5; O2SAT 95–98
[2022-12-14] MEDS: AMOXICILLIN/CLAVULANATE K 500-125 MG TAB 1 TABLET PO ×3 (07:09→21:00)
[2022-12-14] MEDS: HYDROcodone/acetaminophen (*CRX) 5-325 MG TABLET 1 TAB PO (07:09)
[2022-12-14] MEDS: BISACODYL 5 MG TABLET EC PO (07:10)
[2022-12-14 07:32] LABS: Glucose Point of Care 110 mg/dl (65-105)
[2022-12-14] MEDS: FERROUS SULFATE 325 MG TABLET DR PO ×2 (08:13→16:48)
[2022-12-14] MEDS: METOPROLOL TARTRATE 12.5 MG TABLET PO ×2 (08:13→16:48)
[2022-12-14] MEDS: ATORVASTATIN 40 MG TABLET 80 MG PO (08:14)
[2022-12-14] MEDS: CLOPIDOGREL BISULFATE 75 MG TABLET PO (08:14)
[2022-12-14] MEDS: FUROSEMIDE 20 MG TABLET PO ×2 (08:14→16:48)
[2022-12-14] MEDS: AMIODARONE HCL 200 MG TABLET PO (08:14)
[2022-12-14] MEDS: PANTOPRAZOLE SOD SESQUIHYDRATE 20 MG TAB PO (08:15)
--- NOTE | 2022-12-14 10:02 | PM.IMHP ---
H&P: HPI History of Present Illness Date/Time: 12/14/22 10:02 Chief Complaint: weakness Narrative: This is an 82-year-old male patient who was brought to the emergency department for generalized weakness.? He was recently admitted to [facility] for urinary tract infection with sepsis and was discharged home 2 days ago.? He was doing well on day of discharge as well as yesterday but today he began to get very weak having difficulty ambulating with walker.? He was unable to get up off of the toilet and the EMS had to be called.? Patient does not complain of any pain at this time but is noted to be having some moderate dyspnea with rhonchus airway noises.? Chest x-ray obtained in the emergency department showed atelectasis versus pulmonary edema less likely pneumonia.? Patient does take furosemide daily but did not take any of his medications today.? He currently? denies any complaints of thought that he was feeling well.? In the emergency department he was noted to have significant anemia that has slowly decreased over time currently hemoglobin of 7.7.? Patient had type 2 UT when he was admitted for sepsis.? Decision made to transfuse patient 1 unit packed red blood cells and recheck H&H with a goal hemoglobin of 8.? Occult stool ordered. 12/11:? Patient seen sleeping in bed with at bedside.? She noted that patient has been sleeping throughout the day frequently for the past 6 months.? She reports that he has been progressively weaker since he was discharged from [facility] and he she was unable to get him out of the bathroom and off of the toilet and had to call 911 for assistance.? She notes that patient has been more confused and that he is unable to participate in a lot of his usual activities of daily living.? She is mostly concerned that the new acute weakness is causing difficulty maintaining patient at home at this time.? When patient was awakened he was confused but had no complaints.? He denied difficulty breathing despite evidence of wheezing and oxygen demand. 12/12: Patient seen awake confused but states that he is feeling better.? Oxygen is off.? He is not dyspneic.? Leonard catheter in place with clear yellow urine draining.? Patient reports he has been up to the chair but is still very weak.? Patient's at bedside states that he is still too weak to go.? Patient will? remain hospitalized overnight at work with Case Management on SNF placement for acute rehabilitation.? Patient also to work with physical therapy and occupational therapy. 12/13:? Bebo is sitting up in chair after working with therapy.? He says he feels well today.? He is alert and oriented to person, he noted the hospital but he thinks it is in the right, and he is unsure of the year.? He is on room air and does not appear in respiratory distress.? His Leonard catheter was removed yesterday and he is voiding spontaneously.? Hemoglobin remains stable at 8.8.? Last iron panel in June of this year shows low iron of 47, will start on ferrous sulfate.?He has been on Augmentin for a UTI. Chart review shows the medication starting treatment on 12/03. Patient was bacteremic with urosepsis; blood cultures grew proteus mirabilis susceptible to Augmentin. Continue Augmentin with EOT on 12/16.? Patient is being admitted to swing bed today for continued therapy for weakness and deconditioning. 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
[2022-12-14 11:32] LABS: Glucose Point of Care 135 mg/dl (65-105)
--- NOTE | 2022-12-14 11:59 | PC.NURSE ---
Family brought in chicken strips and fries for patient for lunch.
[2022-12-14 16:54] LABS: Glucose Point of Care 113 mg/dl (65-105)
[2022-12-14] MEDS: QUEtiapine FUMARATE 25 MG TABLET PO (20:46)
[2022-12-14] MEDS: ACETAMINOPHEN 325 MG TABLET 650 MG PO (20:46)
[2022-12-14 20:58] LABS: Glucose Point of Care 191 mg/dl (65-105)
[2022-12-15] VITALS: BP 109/77; PULSE 74; RESP 16; TEMP 36.2; O2SAT 96
--- NOTE | 2022-12-15 04:38 | PC.NURSE ---
On 12/15/22, the VIDEO PRODUCTION INTERN, [ Darrel De La Rosa], provided care and completed [facility] documentation on this patient. I have reviewed the VIDEO PRODUCTION INTERN's documentation and agree with the findings.
[2022-12-15] MEDS: AMOXICILLIN/CLAVULANATE K 500-125 MG TAB 1 TABLET PO ×3 (06:35→21:24)
[2022-12-15 07:50] LABS: Glucose Point of Care 98 mg/dl (65-105)
[2022-12-15 08:00] VITALS: BP 113/46; PULSE 79; RESP 14; TEMP 36.4; O2SAT 96
--- NOTE | 2022-12-15 08:27 | PC.NURSE ---
Blood glucose 98 this am. RO
[2022-12-15] MEDS: FUROSEMIDE 20 MG TABLET PO ×2 (09:24→17:27)
[2022-12-15 09:25] VITALS: PULSE 79
[2022-12-15] MEDS: METOPROLOL TARTRATE 12.5 MG TABLET PO ×2 (09:25→17:25)
[2022-12-15] MEDS: ATORVASTATIN 40 MG TABLET 80 MG PO (09:25)
[2022-12-15] MEDS: FERROUS SULFATE 325 MG TABLET DR PO ×2 (09:25→17:26)
[2022-12-15] MEDS: AMIODARONE HCL 200 MG TABLET PO (09:25)
[2022-12-15] MEDS: CLOPIDOGREL BISULFATE 75 MG TABLET PO (09:26)
[2022-12-15] MEDS: PANTOPRAZOLE SOD SESQUIHYDRATE 20 MG TAB PO (09:26)
[2022-12-15 09:42] LABS: Occult Blood Positive (Negative)
[2022-12-15 15:55] VITALS: BP 129/62; PULSE 69; RESP 16; TEMP 36.4; O2SAT 96
[2022-12-15 16:52] LABS: Glucose Point of Care 123 mg/dl (65-105)
[2022-12-15 17:25] VITALS: PULSE 68
[2022-12-15 20:00] VITALS: PULSE 68; RESP 16; O2SAT 96
[2022-12-15] MEDS: QUEtiapine FUMARATE 25 MG TABLET PO (20:25)
[2022-12-15] MEDS: ACETAMINOPHEN 325 MG TABLET 650 MG PO (20:26)
[2022-12-15 20:36] LABS: Glucose Point of Care 131 mg/dl (65-105)
[2022-12-16] VITALS: BP 120/61; PULSE 63; RESP 16; TEMP 36.2; O2SAT 96
--- NOTE | 2022-12-16 03:53 | PC.NURSE ---
On 12/16/22, the CORPORATE COMPLIANCE DIRECTOR, [Darrel De La Rosa ], provided care and completed [facility] documentation on this patient. I have reviewed the CORPORATE COMPLIANCE DIRECTOR's documentation and agree with the findings.
[2022-12-16] MEDS: AMOXICILLIN/CLAVULANATE K 500-125 MG TAB 1 TABLET PO ×3 (06:33→21:04)
[2022-12-16 07:41] LABS: Glucose Point of Care 101 mg/dl (65-105)
[2022-12-16 08:00] VITALS: BP 120/59; PULSE 66; RESP 14; TEMP 36.4; O2SAT 95
--- NOTE | 2022-12-16 08:03 | PC.NURSE ---
Pt am BS is 101 today. RO
[2022-12-16 09:00] VITALS: PULSE 62
[2022-12-16] MEDS: FERROUS SULFATE 325 MG TABLET DR PO ×2 (09:00→17:53)
[2022-12-16] MEDS: METOPROLOL TARTRATE 12.5 MG TABLET PO ×2 (09:00→17:53)
[2022-12-16] MEDS: AMIODARONE HCL 200 MG TABLET PO (09:00)
[2022-12-16] MEDS: ATORVASTATIN 40 MG TABLET 80 MG PO (09:00)
[2022-12-16] MEDS: CLOPIDOGREL BISULFATE 75 MG TABLET PO (09:01)
[2022-12-16] MEDS: PANTOPRAZOLE SOD SESQUIHYDRATE 20 MG TAB PO (09:01)
[2022-12-16] MEDS: FUROSEMIDE 20 MG TABLET PO ×2 (09:01→17:53)
[2022-12-16 10:49] LABS: Hematocrit 35.9 % (37.0-46.0); Hemoglobin 11.1 g/dL (12.4-15.3)
[2022-12-16 16:40] VITALS: BP 112/58; PULSE 62; RESP 16; TEMP 36.4; O2SAT 96
[2022-12-16 16:48] LABS: Glucose Point of Care 93 mg/dl (65-105)
[2022-12-16 17:53] VITALS: PULSE 62
[2022-12-16 20:00] VITALS: PULSE 62; RESP 16; O2SAT 96
--- NOTE | 2022-12-16 20:26 | PM.EVENT ---
Event Note Event Note Event Note: Patient had a positive guiac 'REPEAT hh AND HIS LEVELS ARE HIGHER THAN PREVIOUS HE HAD A HGB OF 8.8 AND CURRENTLY HE IS 11.1.
[2022-12-16] MEDS: QUEtiapine FUMARATE 25 MG TABLET PO (21:04)
[2022-12-16] MEDS: ACETAMINOPHEN 325 MG TABLET 650 MG PO (21:04)
[2022-12-16 21:09] LABS: Glucose Point of Care 175 mg/dl (65-105)
[2022-12-17] VITALS: BP 114/53; PULSE 66; RESP 16; TEMP 36.4; O2SAT 97
[2022-12-17 07:49] LABS: Glucose Point of Care 98 mg/dl (65-105)
[2022-12-17 08:00] VITALS: BP 112/50; PULSE 74; RESP 14; TEMP 36.6; O2SAT 95
--- NOTE | 2022-12-17 08:06 | PC.NURSE ---
Blood sugar this am is 98. RO
[2022-12-17 09:11] VITALS: PULSE 72
[2022-12-17] MEDS: METOPROLOL TARTRATE 12.5 MG TABLET PO ×2 (09:11→16:59)
[2022-12-17] MEDS: ATORVASTATIN 40 MG TABLET 80 MG PO (09:11)
[2022-12-17] MEDS: PANTOPRAZOLE SOD SESQUIHYDRATE 20 MG TAB PO (09:11)
[2022-12-17 09:12] VITALS: PULSE 74
[2022-12-17] MEDS: AMIODARONE HCL 200 MG TABLET PO (09:12)
[2022-12-17] MEDS: FUROSEMIDE 20 MG TABLET PO ×2 (09:12→16:58)
[2022-12-17] MEDS: CLOPIDOGREL BISULFATE 75 MG TABLET PO (09:12)
[2022-12-17] MEDS: FERROUS SULFATE 325 MG TABLET DR PO ×2 (09:12→16:58)
[2022-12-17 12:00] LABS: Glucose Point of Care 204 mg/dl (65-105)
[2022-12-17 16:40] VITALS: BP 111/51; PULSE 67; RESP 18; TEMP 36.3; O2SAT 98
[2022-12-17 16:59] VITALS: PULSE 67
[2022-12-17 17:04] LABS: Glucose Point of Care 117 mg/dl (65-105)
[2022-12-18] VITALS: BP 115/59; PULSE 71; RESP 18; TEMP 36.3; O2SAT 99
--- NOTE | 2022-12-18 00:48 | PC.NURSE ---
On 12/18/22, the SELF PROPELLED MINING MACHINE OPERATOR, [Pedro Pablo Garcia ], provided care and completed [email or web address] documentation on this patient. I have reviewed the SELF PROPELLED MINING MACHINE OPERATOR's documentation and agree with the findings.
[2022-12-18 07:38] LABS: Glucose Point of Care 103 mg/dl (65-105)
[2022-12-18 08:00] VITALS: BP 115/58; PULSE 66; RESP 16; TEMP 36.4; O2SAT 96
[2022-12-18] MEDS: CLOPIDOGREL BISULFATE 75 MG TABLET PO (08:38)
[2022-12-18] MEDS: PANTOPRAZOLE SOD SESQUIHYDRATE 20 MG TAB PO (08:38)
[2022-12-18] MEDS: ATORVASTATIN 40 MG TABLET 80 MG PO (08:38)
[2022-12-18] MEDS: FERROUS SULFATE 325 MG TABLET DR PO ×2 (08:38→17:10)
[2022-12-18 08:39] VITALS: PULSE 66
[2022-12-18] MEDS: FUROSEMIDE 20 MG TABLET PO ×2 (08:39→17:10)
[2022-12-18] MEDS: AMIODARONE HCL 200 MG TABLET PO (08:39)
[2022-12-18] MEDS: METOPROLOL TARTRATE 12.5 MG TABLET PO ×2 (08:39→17:10)
[2022-12-18 11:44] LABS: Glucose Point of Care 188 mg/dl (65-105)
[2022-12-18 16:00] VITALS: BP 113/62; PULSE 60; RESP 16; TEMP 36.4; O2SAT 97
[2022-12-18 16:33] LABS: Glucose Point of Care 155 mg/dl (65-105)
[2022-12-18 17:10] VITALS: PULSE 66
--- NOTE | 2022-12-18 18:01 | PC.NURSE ---
PEG tube flushed with 30 ml water.
[2022-12-18 20:00] VITALS: PULSE 66; RESP 16; O2SAT 97
[2022-12-18] MEDS: QUEtiapine FUMARATE 25 MG TABLET PO (20:04)
[2022-12-18 20:08] LABS: Glucose Point of Care 157 mg/dl (65-105)
[2022-12-19] VITALS: BP 109/60; PULSE 62; RESP 16; TEMP 36.4; O2SAT 97
[2022-12-19 05:31] LABS: Basophils Absolute Auto 0.04 K/mm3 (0.00-0.10); Basophils Percent Auto 0.8 % (0.0-1.0); Eosinophils Absolute Auto 0.15 K/mm3 (0.02-0.50); Eosinophils Percent Auto 3.1 % (1.0-6.0); Hematocrit 28.8 % (37.0-46.0); Hemoglobin 9.2 g/dL (12.4-15.3); Immature Granulocyte Absolute 0.01 K/mm3 (0.00-0.00); Immature Granulocyte Percent A 0.2 % (0.0-0.0); Lymphocytes Absolute Auto 1.34 K/mm3 (1.10-4.50); Lymphocytes Percent Auto 27.9 % (18.0-42.0); Mean Corpuscular HGB Conc 31.9 g/dL (32.0-36.0); Mean Corpuscular Hemoglobin 29.1 pg (27.0-31.0); Mean Corpuscular Volume 91.1 fL (78.0-102.0); Mean Platelet Volume 8.8 fl (8.7-11.0); Monocytes Absolute Auto 0.42 K/mm3 (0.10-0.90); Monocytes Percent Auto 8.7 % (2.0-11.0); Neutrophils Absolute Auto 2.9 K/mm3 (1.7-7.2); Neutrophils Percent Auto 59.3 % (50.0-70.0); Platelet Count Result 234 K/mm3 (150-420); Red Blood Count 3.16 M/mm3 (4.70-6.10); Red Cell Distribution Width 12.8 % (11.6-14.4); White Blood Count 4.8 K/mm3 (4.8-10.8)
[2022-12-19 05:47] LABS: Alanine Aminotransferase 20 U/L (16-63); Albumin Level 2.5 g/dL (3.4-5.0); Alkaline Phosphatase 57 U/L (46-116); Anion Gap 5 mmol/L (8-16); Aspartate Amino Transferase 16 U/L (15-37); Bilirubin,Total 0.3 mg/dL (0.00-1.00); Blood Urea Nitrogen 24 mg/dL (7-18); Carbon Dioxide 35 mmol/L (21-32); Chloride 102 mmol/L (98-108); Estimated CRCL calculation 41 ml/min; Estimated Glomerular Filt Rate 53; Glucose 105 mg/dL (70-99); Osmolality Calculated 298 mOsm/kg (285-295); Potassium 3.9 mmol/L (3.5-5.1); Sodium 142 mmol/L (136-145); Total Protein 6.5 g/dL (6.4-8.2)
[2022-12-19 07:40] LABS: Glucose Point of Care 96 mg/dl (65-105)
[2022-12-19 07:51] VITALS: BP 114/43; PULSE 65; RESP 16; TEMP 36.5; O2SAT 95
[2022-12-19 08:36] VITALS: PULSE 67
[2022-12-19] MEDS: FERROUS SULFATE 325 MG TABLET DR PO (08:36)
[2022-12-19] MEDS: ATORVASTATIN 40 MG TABLET 80 MG PO (08:36)
[2022-12-19] MEDS: PANTOPRAZOLE SOD SESQUIHYDRATE 20 MG TAB PO (08:36)
[2022-12-19] MEDS: AMIODARONE HCL 200 MG TABLET PO (08:36)
[2022-12-19] MEDS: METOPROLOL TARTRATE 12.5 MG TABLET PO (08:36)
[2022-12-19] MEDS: FUROSEMIDE 20 MG TABLET PO (08:37)
[2022-12-19] MEDS: CLOPIDOGREL BISULFATE 75 MG TABLET PO (08:39)
[2022-12-19 11:43] LABS: Glucose Point of Care 140 mg/dl (65-105)
[2022-12-19 16:00] VITALS: BP 103/48; PULSE 59; RESP 16; TEMP 36.4; O2SAT 96
[2022-12-19 16:28] LABS: Glucose Point of Care 109 mg/dl (65-105)
--- NOTE | 2022-12-19 17:45 | PC.NURSE ---
Photogrammetric Engineer tried to encourage patient to eat a little more, and to stay out of bed a little longer at dinner. Patient stated that he is not feeling well, and that he just wanted to lay down. Photogrammetric Engineer assisted patient to bed and checked patient's temperature. Temperature WNL. Photogrammetric Engineer offered tylenol, and patient refused, stating that he just wants to rest.
[2022-12-19 20:00] VITALS: PULSE 59; RESP 16; O2SAT 97
[2022-12-19] MEDS: QUEtiapine FUMARATE 25 MG TABLET PO (20:15)
[2022-12-19] MEDS: ACETAMINOPHEN 325 MG TABLET 650 MG PO (20:15)
[2022-12-19 20:20] LABS: Glucose Point of Care 117 mg/dl (65-105)
--- NOTE | 2022-12-19 20:38 | PC.NURSE ---
Pt states he is Feeling better , remains afebrile with temp of 97.8, PRN Tylenol given for general discomfort, LCTA, occasional NPC noted, pt noted to have nasal congestion.
[2022-12-20] VITALS: BP 114/57; PULSE 65; RESP 17; TEMP 36.6; O2SAT 97
--- NOTE | 2022-12-20 07:15 | PC.NURSE ---
cooperative, no violent actions noted during stay
[2022-12-20 08:00] VITALS: BP 116/58; PULSE 72; RESP 14; TEMP 36.4; O2SAT 97
--- NOTE | 2022-12-20 08:14 | PC.NURSE ---
Pt's blood glucose is 88 this AM. RO
[2022-12-20] MEDS: CLOPIDOGREL BISULFATE 75 MG TABLET PO (09:42)
[2022-12-20 09:43] VITALS: PULSE 72
[2022-12-20] MEDS: FUROSEMIDE 20 MG TABLET PO (09:43)
[2022-12-20] MEDS: AMIODARONE HCL 200 MG TABLET PO (09:43)
[2022-12-20] MEDS: ATORVASTATIN 40 MG TABLET 80 MG PO (09:43)
[2022-12-20 09:44] VITALS: PULSE 72
[2022-12-20] MEDS: METOPROLOL TARTRATE 12.5 MG TABLET PO (09:44)
[2022-12-20] MEDS: PANTOPRAZOLE SOD SESQUIHYDRATE 20 MG TAB PO (09:44)
[2022-12-20] MEDS: FERROUS SULFATE 325 MG TABLET DR PO (09:45)
--- NOTE | 2022-12-20 10:54 | PM.DS ---
DS: Admitting Diagnosis Discharge Date 12/20/2022 Admitting Diagnosis Anemia, Weakness, Rehab, Urinary Tract infection DS: Discharge Diagnosis Discharge Diagnosis (1) Generalized weakness: Code(s): R53.1 - Weakness Status: Acute (2) Sundowning: Code(s): F05 - Delirium due to known physiological condition Status: Acute (3) LOGAN (acute kidney injury): Code(s): N17.9 - Acute kidney failure, unspecified Status: Acute (4) Frequent falls: Code(s): R29.6 - Repeated falls Status: Acute DS: Summary Hospital Course Reason for hospitalization: Swing, Rehab, UTI, Weakness Hospital Course: This was a 82-year-old male pleasant to care for.Was brought in to our swing unit after hospital admission with a UTI and sepsis. Patient became septic Benigno and was weak was found to be anemic received 1 unit of blood. Patient currently is on anticoagulation guaiac was positive on chair if it was from hemorrhoids but no for sure. Bleeding noted patient's hemoglobin continued to rise. Patient was found to be with some pulmonary edema was deemed less likely to be pneumonia with patient continued Lasix physical therapy and improvement he was able to discharge home still requiring some outpatient therapy but stable at this time patient is ready to follow up with his primary care provider for pulse hospital stay antibiotics have been completed. Patient's vitals on discharge is 116/58, 72 heart rate, respirations 14, temp 97.6?, O2 saturation is 97% on room air patient is eating and drinking without any difficulty no nausea vomiting and/or diarrhea this time patient will discharge home with close follow-up with PCP. Time Spent with Patient Time attestation: Total time spent providing and/or coordinating discharge services: Exam Narrative: General:? well-nourished, elderly 79-year-old male,? sitting up in chair, comfortable, NARD Neuro: awake, alert and oriented x2, speech clear, no focal neuro deficits noted HEENMT:? normocephalic, atraumatic, EOMI, sclerae anicteric, moist oral mucosa Respiratory:? Clear to auscultation bilaterally without crackles, rhonchi or wheezes, nonlabored breathing Cardio: regular rate, regular rhythm with S1-S2 Abdomen:? nondistended, normoactive bowel sounds, soft, nontender to palpation. G tube in place. Extremities: no edema, erythema, or tenderness to palpation, DP pulses 2+ bilaterally Skin: no rashes or lesions, warm and dry Psych: appropriate mood and affect, judgement impaired ? DS: Data Data Completed and Pending Labs on day of discharge: Labs from last 24 hours 12/19/22 12/19/22 12/19/22 20:15 16:23 11:34 POC Capillary Glucose 117 H 109 H 140 H Discharge Plan Discharge Attending physician on discharge: Kashif Mar Consulting providers: Naheed Simons; Ada Bermudez Discharging Clinician: Ada eBrmudez Anticipated Discharge Date/Time: 12/20/22 10:36 Patient Disposition: Home, Self-Care Activity: may shower and as tolerated Diet: diabetic Wound Care Instructions: follow printed instructions Discharge Instructions: Out patient physical therapy appointment December 22 at 1 pm at hospital therapy dept. - plan to be there 45 - 60 min. They will schedule OT at that visit for another day. Call [phone] if you need to change your appointment. Patient Instructions: Antibiotic Form, Quetiapine (By mouth), Urinary Tract Infection in Men (DC), Fall Prevention for Older Adults (DC), Weakness (DC), Anemia (DC), Urinary Tract Infection in Older Adults (DC) Stand Alone Forms: General Discharge Information Follow-up/Referrals: Dereck Malcolm MD [Primary Care Provider] - (call and schedule appointment ) Discharge Medications: New quetiapine [Seroquel] 25 mg Tablet 25 mg PO HS Qty: 30 0RF ferrous sulfate 325 mg (65 mg iron) Tablet,Delayed Release (Dr/Ec) 325 mg PO BID Qty: 30 0RF Continued
--- NOTE | 2022-12-20 13:44 | PC.NURSE ---
Pt. discharged to home with family care. Pt and given discharge instructions regarding: follow up PCP appointment, Medications including new medications , Dose, time, purpose and possible side effects. Both Pt and verbalized understanding. Pt has out pt therapy appointment on 12/22. Pt taken to the family car via WC by RN.
--- NOTE | 2022-12-21 11:42 | PC.NURSE ---
Spoke with regarding discharge from [facility], states doing well, very appreciative of the care he received, no questions or concerns regarding discharge instructions
[2022-12-21 14:47] LABS: Glucose Point of Care 188 mg/dl (65-105)
[2022-12-21 14:47] LABS: Glucose Point of Care 88 mg/dl (65-105)
== END 2022-12-20 13:10 | disposition home or self-care (01) | DRG 948 ==
PROVIDERS: Nurse Practitioner Acute Care; Nurse Practitioner Family; Admitting Provider Internal Medicine; PCP Emergency Medicine; Visit Provider Internal Medicine
DX: R53.1 Weakness (principal); N39.0 Urinary tract infection, site not specified; N17.9 Acute kidney failure, unspecified; F05 Delirium due to known physiological condition; I10 Essential (primary) hypertension; E78.2 Mixed hyperlipidemia; D64.9 Anemia, unspecified; R29.6 Repeated falls; R19.5 Other fecal abnormalities; G47.33 Obstructive sleep apnea (adult) (pediatric); Z85.810 Personal history of malignant neoplasm of tongue; Z86.73 Personal history of transient ischemic attack (TIA), and cerebral infarction without residual deficits; Z87.891 Personal history of nicotine dependence; Z79.01 Long term (current) use of anticoagulants
CPT/HCPCS: 36415; 80053; 82272; 82948; 85014; 85018; 85025; 97110; 97161; 97165; 97530; 97535; A9270

== ENCOUNTER 2022-12-22 13:21 | Outpatient (RCR) | payer MEDICARE, SELFPAY ==
--- NOTE | 2022-12-24 16:39 | OPREHPOC ---
Outpatient Therapy Plan of Care This is a Multidisciplinary Plan of Care that may contain components documented by all disciplines (PT, OT, and ST.) PT Problem 1 PT Problem #1 Knowledge Deficit PT Goal 1 Goal 1. Patient to demonstrate independence with HEP to improve progress made in PT. Target Visit 5 PT Problem 2 PT Problem #2 Impaired Strength PT Goal 1 Goal 1. Patient to improve B LE strength to at least 4+ /5 overall to improve his ability to squat to floor to black pickler object. Target Visit 9 PT Problem 3 PT Problem #3 Impaired Balance PT Goal 1 Goal 1. Patient to improve Tinetti balance score to at least 23/28 in order to reduce fall risk in community. Target Visit 9 PT Problem 4 PT Problem #4 Impaired Endurance PT Goal 1 Goal 1. Patient to increase distance ambulated during 6 minute walk test to 1000 feet with use of rollator in order to improve patient's endurance to walk in grocery store. Target Visit 9 PT Problem 5 PT Problem #5 Impaired Functional Mobil PT Goal 1 Goal 1. Patient to improve 5 times sit to stand time to 20 seconds or less to improve patient's ability to safely transfer when sitting at dining room table. 2. Patient to ascend/descend 3 stairs to allow for ability to enter into different buildings or homes in community. Target Visit 9
--- NOTE | 2022-12-24 16:39 | PTOPEVAL1 ---
Assessment and note entered by JT File, PT Evaluation Information Assessment Status Evaluation Diagnosis weakness Onset 12/17/22 Subjective Information Patient reports he was in the hospital with generalized weakness for about one week, returning home in the last few days. He notes he uses a FWW for walking in the home and community. He notes he has no pain present today. He has not tried stair climbing since leaving the hospital. He states he has not been doing any exercises since leavng the hospital, however he has been able to walk to the mailbox without difficulty. Reported Pain Level Pain Score 0: Self Report Assessment PT Clinical Summary Mr. Carpenter is an 82 y/o male who presents to skilled PT to address generalized weakness followig hospitalization. He demonstrates impaired LE strength, balance, and overall endurance. He is currently a fall risk as assessed by the tinneti balance test, TUG, and 5x sit to stand. Patient currently has difficulty ambulating for increased distances such as in the store and navigating stairs. He would benefit from continued skilled PT to address strength and balance, as well as functional mobility, to allow for patient to return to his normal daily activities. Plan of Care Interventions Gait Training,Neuro Re-education,Patient/Caregiver Educati,Therapeutic Activities,Therapeutic Exercise PT Services Indicated Yes Treatment Frequency and 3x/weekly for 9 visits Duration These treatments will address the objective and functional deficits as defined above. The patient will be advanced safely and appropriately in order for the patient to progress towards his/her prior level of function. Additional exercises will be introduced and as well as a comprehensive home exercise program upon discharge, if needed, ?to ensure carryover of functional gains achieved in the clinic. This treatment plan has been reviewed and agreement upon by the patient.
== END 2022-12-28 20:10 | disposition home or self-care (01) ==
LOC: CHSPT 13:21
PROVIDERS: Visit Provider Nurse Practitioner Family
DX: R53.1 Weakness (principal)
CPT/HCPCS: 97110; 97112; 97161; 97530

== ENCOUNTER 2022-12-30 15:24 | Emergency (ER) | payer MEDICARE, SELFPAY ==
[2022-12-30] VITALS (41 sets, daily range): BP systolic 104–126; BP diastolic 49–76; PULSE 71–95; RESP 10–28; TEMP 36.8–37.1; O2SAT 95–98
--- NOTE | ~2022-12-30 | XR_ITS ---
EXAMINATION: XR chest 1V portable INDICATION: Weakness TECHNIQUE: Portable AP chest at 1611 hours COMPARISON: 12/10/2022 FINDINGS: The lungs are free of acute opacities. No pleural effusion or pneumothorax. The cardiomedia stinal silhouette is stable. There is osteoarthritis of the shoulders. IMPRESSION: 1. No acute cardiopulmonary abnormality. Reviewed, dictated and finalized at location L.
--- NOTE | ~2022-12-30 | CT_ITS ---
EXAMINATION: CT brain wo con DATE: 12/30/2022 17:27 INDICATION: Head injury. TECHNIQUE: Computed tomography (CT) of the head was performed without intravenous contrast. The mA wa s adjusted according to patient size. Iterative reconstruction technique was employed. The dose-lengt h product was 681.00 mGy-cm. COMPARISON: Head CT 12/02/2022 FINDINGS: There are old infarcts in the left cerebellum, left thalamus, and bilateral basal ganglia. There are scattered areas of low attenuation in the cerebral white matter. There are old infarcts in the posterior frontal lobes bilaterally. There is no intracranial hemorrhage, acute infarction, or ab normal intracranial mass lesion. The ventricles are normal in size. There are likely changes of ocula r lens replacement surgeries. There is mild mucosal thickening in the paranasal sinuses. There is a s mall right mastoid effusion. IMPRESSION: 1. Multiple old infarcts in the brain. 2. Extensive nonspecific cerebral white matter disease, which likely represents chronic small vessel ischemic disease. Reviewed, dictated and finalized at location E.
--- NOTE | 2022-12-30 16:00 | ECG_ITS ---
Measurements Intervals [place] Rate: 85 P: 5 OH: 190 QRS: -13 QRSD: 165 T: 99 QT: 447 QTc: 533 Interpretive Statements SINUS RHYTHM LEFT BUNDLE BRANCH BLOCK BASELINE ARTIFACT- I, II, AVR, AVL, AVF ABNORMAL ECG COMPARED TO ECG 12/11/2022 10:19:34 NO SIGNIFICANT CHANGES Electronically Signed On 12-31-2022 7:04:53 CDT by Candido Cardenas D.O.
[2022-12-30] MEDS: LACTATED RINGERS 1,000 ML 999 ML IV CONT (16:30)
[2022-12-30 16:33] LABS: Basophils Absolute Auto 0.02 K/mm3 (0.00-0.10); Basophils Percent Auto 0.2 % (0.0-1.0); Eosinophils Absolute Auto 0.05 K/mm3 (0.02-0.50); Eosinophils Percent Auto 0.6 % (1.0-6.0); Hematocrit 23.3 % (37.0-46.0); Hemoglobin 7.8 g/dL (12.4-15.3); Immature Granulocyte Absolute 0.04 K/mm3 (0.00-0.00); Immature Granulocyte Percent A 0.5 % (0.0-0.0); Lymphocytes Percent Auto 19.8 % (18.0-42.0); Mean Corpuscular HGB Conc 33.5 g/dL (32.0-36.0); Mean Corpuscular Hemoglobin 30.4 pg (27.0-31.0); Mean Corpuscular Volume 90.7 fL (78.0-102.0); Mean Platelet Volume 8.9 fl (8.7-11.0); Monocytes Absolute Auto 0.64 K/mm3 (0.10-0.90); Monocytes Percent Auto 7.4 % (2.0-11.0); Neutrophils Absolute Auto 6.2 K/mm3 (1.7-7.2); Neutrophils Percent Auto 71.5 % (50.0-70.0); Platelet Count Result 260 K/mm3 (150-420); Red Blood Count 2.57 M/mm3 (4.70-6.10); Red Cell Distribution Width 14.1 % (11.6-14.4); White Blood Count 8.6 K/mm3 (4.8-10.8)
[2022-12-30 16:48] LABS: Alanine Aminotransferase 29 U/L (16-63); Albumin Level 2.8 g/dL (3.4-5.0); Alkaline Phosphatase 74 U/L (46-116); Anion Gap 5 mmol/L (8-16); Aspartate Amino Transferase 24 U/L (15-37); Bilirubin,Total 0.4 mg/dL (0.00-1.00); Blood Urea Nitrogen 29 mg/dL (7-18); CRP 5.6 mg/dL (0.0-0.9); Calcium 9.1 mg/dL (8.5-10.1); Carbon Dioxide 33 mmol/L (21-32); Chloride 102 mmol/L (98-108); Estimated CRCL calculation 36 ml/min; Estimated Glomerular Filt Rate 46; Glucose 138 mg/dL (70-99); Lipase 20 U/L (16-77); Osmolality Calculated 297 mOsm/kg (285-295); Potassium 3.7 mmol/L (3.5-5.1); Sodium 140 mmol/L (136-145); Total Protein 6.8 g/dL (6.4-8.2)
[2022-12-30 16:48] LABS: INR 1.1; Partial Thromboplastin Time 25.9 SEC (23.90-30.70); Prothrombin Time 11.7 Seconds (9.50-12.10)
[2022-12-30 16:52] LABS: Occult Blood Positive (Negative)
[2022-12-30] MEDS: PANTOPRAZOLE SODIUM IV 40 MG VIAL 80 MG IV PUSH (16:54)
[2022-12-30 16:56] LABS: Lactic Acid Reflex 1.5 mmol/L (0.4-2.0)
[2022-12-30 16:57] LABS: NT Pro B Type Natriuretic Pept 2765 pg/mL (0-450)
[2022-12-30 17:01] LABS: Influenza A QL RT-PCR Negative (Negative); Influenza B QL RT-PCR Negative (Negative); RSV RNA, RT-PCR Negative (Negative); SARS-CoV-2 RNA PCR Negative (Negative)
--- NOTE | 2022-12-30 17:02 | ED.WEAKNESS ---
HPI - Weakness General Chief complaint: Weakness Stated complaint: frequent falls; weakness Time Seen by Provider: 12/30/22 15:30 Source: patient Mode of arrival: ambulatory Limitations: no limitations History of Present Illness HPI Narrative: this is 82-year-old male that is brought in by EMS with frequent falls according to his patient had 5 falls today, having difficulty ambulating even while using his walker, has been having generalized weakness fall with no injuries patient did have a minor head injury with no lacerations no hematoma no loss of consciousness, patient with some initially blood pressure in the low 80s and 90s but had responded and to bolus of IV fluids currently he has blood pressure systolic is brought in via EMS at 110/57. There is no chest pain no shortness of breath patient has been having black tarry stools, has a history of atrial fibrillation with a chronic left bundle branch block and history of diabetes history of CVA and hypertension. Patient currently on Eliquis for his AFib and Plavix for history of CVAs. Family states that he was recently admitted and discharged from [facility] had UTI with sepsis and bacteremia that was treated. Currently the patient is afebrile he is satting at 97% on room air. reassessment patient having frequent bowel movements that black and tarry, the patient was typed and crossed and transfused 1unit of packed red blood cells. Is H&H had decreased to 7.3/ thank. Blood pressure has been stable lately at 110 and 120 systolic but has overnight been lost around 96/62. Numerous attempts for transfer there is no availability at local hospitals, [facility] declined to take the patient because there is no GI on-call overnight of December 30, 2022, was told that on-call GI will be back personnel director after 7:00 a.m. on December 31, 2022. Family was adamant in being that having her family member transferred to [facility] where he generally receives his care. Apparently they were disappointed that transfer did not take place to [facility] overnight. Have received calls from hospitals, such as [facility] for reiterating that he is on a waiting list. Complaint: generalized weakness Onset (ago): day(s) Duration: constant Location: generalized Severity: moderate Related Data Home Medications Medication Instructions Recorded Confirmed amiodarone 200 mg tablet 200 mg PO DAILY 09/08/22 12/13/22 apixaban 5 mg tablet (Eliquis) 5 mg PO BID 11/04/22 12/13/22 metoprolol tartrate 25 mg tablet 12.5 mg PO BID 11/04/22 12/13/22 furosemide 20 mg tablet 20 mg PO DAILY 12/02/22 12/13/22 Allergies Allergy/AdvReac Type Severity Reaction Status Date / Time No Known Allergies Allergy Verified 12/10/22 13:20 Review of Systems Review of Systems: All systems reviewed & are unremarkable except as noted in HPI and below PMFSH Past Medical History Medical History Bacteremia due to Gram-negative bacteria Benign hypertension 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 Cataract (lens) fragments in eye following cataract surgery, bilateral Essential (primary) hypertension History of CVA (cerebrovascular accident) Mixed hyperlipidemia Non-ST elevated myocardial infarction (non-STEMI) Obstructive sleep apnea Septic shock Surgical History Surgical History Surgical history unknown Family History Family History Mother Diabetes mellitus Hypertension Heart disease Sibling Family history of cardiovascular disease Cancer of stomach Brain cancer Family history of elevated blood lipids Family history of lung cancer Lung cancer Hypertension Heart disease Father Family history of malignant neoplasm History of cancer of stomach Other Family history of kidney disease Social Hist
[2022-12-30 18:33] LABS: Add Urine Microscopic? YES; Appearance Urine Clear (Clear); Bacteria Urine 2+ /hpf; Bilirubin Urine Negative (Negative); Blood Urine Trace-Intact (Negative); Color Urine Light Yellow (Yellow); Glucose Urine UA Negative (Negative); Ketones Urine Negative (Negative); Leukocyte Esterase Ur 2+ LEU/UL (Negative); Nitrate Urine Positive (Negative); Protein Urine Negative (Negative); Squamous Epithelial Cell Urine Rare /hpf (Few); Urobilinogen Urine 0.2 mg/dL (0.2-1.0); WBC Urine 21-30 /hpf (0-3); pH Urine 5.5 (5.0-8.0)
--- NOTE | 2022-12-30 19:30 | PC.NURSE ---
Report received, pt resting c family at bedside, VSS, awaiting call back for transfer to [place]. New IV site started, pt has no c/o at this time.
--- NOTE | 2022-12-30 19:41 | PC.NURSE ---
updated daughter about transfer to [facility]. Patient, and daughter in agreeance to transfer and be admitted. ERP to update daughter about plan of care going forward from this point.
--- NOTE | 2022-12-30 21:17 | PC.NURSE ---
Pt changed and noted small amt smear of dark tarry type stool on pad. Pt is A&O x3, pt and family informed on waiting for beds and no beds available for transfer to multiple [facility].
--- NOTE | 2022-12-30 22:29 | PC.NURSE ---
Pt cleaned of small BM of dark color. Assisted c turning. Pt and family informed on wait list and times as no beds available for transfer.
[2022-12-30] MEDS: SODIUM CHLORIDE 0.9% IV 1,000 ML 999 ML IV CONT (23:01)
--- NOTE | 2022-12-30 23:02 | PC.NURSE ---
Pt restintg in side lying position c pillows propped for comfrt. Continuing to monitor and will await for bed placement when available.
[2022-12-30] MEDS: TEMAZEPAM (*CRX) 15 MG CAPSULE PO (23:35)
[2022-12-31] VITALS (28 sets, daily range): BP systolic 88–123; BP diastolic 40–65; PULSE 85–105; RESP 13–28; TEMP 36.2–37.6; O2SAT 85–98
--- NOTE | 2022-12-31 | PC.NURSE ---
Pt given more comfortable hospital bed to rest in. Pt assisted c SBA x1 to move from ER cot to bed and repositioned for comfort. VSS, call aaron at side.
--- NOTE | 2022-12-31 00:32 | PC.NURSE ---
Continuing to monitor, pt sleeping, VSS monitor shows NSR c BBB.
--- NOTE | 2022-12-31 01:36 | PC.NURSE ---
Pt awake, restless and unable to get comfortable. Pt assisted turning to Rt side, call aaron at side.
--- NOTE | 2022-12-31 02:18 | PC.NURSE ---
Pt resting comfortably and sleeping at this time. RR even and nonlabored. Continuing to monitor, monitor shows SR c BBB. VSS call aaron at side.
--- NOTE | 2022-12-31 02:40 | PC.NURSE ---
Pt awake and restless, states he has BM in his diaper. Pt changed of large amt dark tarry loose stool at this time. ERP Dr Coyle notified and new orders received to draw another CBC and transfuse 1 unit PRBC. Pt is alert and helps turn in bed. Pt cleaned of stool and repositioned in bed for comfort.
[2022-12-31 03:08] LABS: Basophils Absolute Auto 0.02 K/mm3 (0.00-0.10); Basophils Percent Auto 0.2 % (0.0-1.0); Eosinophils Absolute Auto 0.07 K/mm3 (0.02-0.50); Eosinophils Percent Auto 0.6 % (1.0-6.0); Hematocrit 22.1 % (37.0-46.0); Hemoglobin 7.3 g/dL (12.4-15.3); Immature Granulocyte Absolute 0.05 K/mm3 (0.00-0.00); Immature Granulocyte Percent A 0.5 % (0.0-0.0); Lymphocytes Absolute Auto 1.29 K/mm3 (1.10-4.50); Lymphocytes Percent Auto 11.7 % (18.0-42.0); Mean Corpuscular Hemoglobin 30.3 pg (27.0-31.0); Mean Corpuscular Volume 91.7 fL (78.0-102.0); Mean Platelet Volume 8.3 fl (8.7-11.0); Monocytes Absolute Auto 0.74 K/mm3 (0.10-0.90); Monocytes Percent Auto 6.7 % (2.0-11.0); Neutrophils Absolute Auto 8.9 K/mm3 (1.7-7.2); Neutrophils Percent Auto 80.3 % (50.0-70.0); Platelet Count Result 211 K/mm3 (150-420); Red Blood Count 2.41 M/mm3 (4.70-6.10); Red Cell Distribution Width 14.4 % (11.6-14.4); White Blood Count 11.1 K/mm3 (4.8-10.8)
--- NOTE | 2022-12-31 03:15 | PC.NURSE ---
Blood consent signed by pt. Explained to pt reason for transfusion. Pt agreeable to transfusion.
[2022-12-31] MEDS: SODIUM CHLORIDE 0.9% IV 250 ML 30 ML IV CONT (03:31)
--- NOTE | 2022-12-31 03:55 | PC.NURSE ---
Blood initiated and transfusing per protocol. Pt sleeping at this time, no c/o. VSS.
--- NOTE | 2022-12-31 05:07 | PC.NURSE ---
Pt turned and repositioned and cleaned of another black tarry stool. Pt remains A&O x3. VSS. Blood continues to transfuse.
[2022-12-31 06:30] LABS: Hematocrit 24.5 % (37.0-46.0); Hemoglobin 8.1 g/dL (12.4-15.3)
[2022-12-31 06:45] LABS: Basophils Absolute Auto 0.03 K/mm3 (0.00-0.10); Basophils Percent Auto 0.2 % (0.0-1.0); Eosinophils Absolute Auto 0.04 K/mm3 (0.02-0.50); Eosinophils Percent Auto 0.3 % (1.0-6.0); Hematocrit 24.3 % (37.0-46.0); Hemoglobin 8.1 g/dL (12.4-15.3); Immature Granulocyte Absolute 0.07 K/mm3 (0.00-0.00); Immature Granulocyte Percent A 0.6 % (0.0-0.0); Lymphocytes Percent Auto 12.4 % (18.0-42.0); Mean Corpuscular HGB Conc 33.3 g/dL (32.0-36.0); Mean Corpuscular Hemoglobin 30.7 pg (27.0-31.0); Mean Platelet Volume 8.9 fl (8.7-11.0); Monocytes Absolute Auto 0.91 K/mm3 (0.10-0.90); Monocytes Percent Auto 7.5 % (2.0-11.0); Neutrophils Absolute Auto 9.5 K/mm3 (1.7-7.2); Platelet Count Result 203 K/mm3 (150-420); Red Blood Count 2.64 M/mm3 (4.70-6.10); Red Cell Distribution Width 14.3 % (11.6-14.4); White Blood Count 12.1 K/mm3 (4.8-10.8)
--- NOTE | 2022-12-31 07:07 | PC.NURSE ---
Report given to KAROL Forrester
[2022-12-31] MEDS: PANTOPRAZOLE SODIUM IV 40 MG VIAL 80 MG IV PUSH (07:16)
[2022-12-31 07:19] LABS: Anion Gap 8 mmol/L (8-16); Blood Urea Nitrogen 22 mg/dL (7-18); Calcium 8.4 mg/dL (8.5-10.1); Carbon Dioxide 28 mmol/L (21-32); Chloride 106 mmol/L (98-108); Estimated CRCL calculation 45 ml/min; Estimated Glomerular Filt Rate 59; Glucose 112 mg/dL (70-99); Osmolality Calculated 298 mOsm/kg (285-295); Potassium 3.9 mmol/L (3.5-5.1); Sodium 142 mmol/L (136-145)
[2022-12-31] MEDS: SODIUM CHLORIDE 0.9% IV 1,000 ML 150 ML IV CONT (08:41)
--- NOTE | 2023-01-03 14:16 | PC.NURSE ---
culture reports sent to Josefa carson @[phone]
--- NOTE | 2023-01-04 12:50 | PC.NURSE ---
PRELIMINARY URINE CULTURE RESULTS: ISOLATE 1: 50,000-100,000 CFU/ML OF ENTEROCOCCUS SPECIES. TO AWAIT C&S, PT TRANSFERRED TO [facility].
--- NOTE | 2023-01-05 14:17 | PC.NURSE ---
final blood and urine cultures reviewed, called Josefa Young, spoke with charge nurse about blood/urine culture results. Results were faxed to facility at [phone]
--- NOTE | 2023-01-06 12:57 | PC.NURSE ---
final blood culture results: ISOLATE 1: PROPIONIBACTERIUM ACNES. SPOKE WITH KAROL MAX AT [facility] AND FAXED RESULTS TO [phone].
== END 2022-12-31 10:15 | disposition short-term general hospital (02) ==
PROVIDERS: Emergency Medicine; Emergency Provider Emergency Medicine; PCP Emergency Medicine
DX: K92.2 Gastrointestinal hemorrhage, unspecified (principal); R53.1 Weakness; N39.0 Urinary tract infection, site not specified; I44.7 Left bundle-branch block, unspecified; I48.91 Unspecified atrial fibrillation; E11.9 Type 2 diabetes mellitus without complications; I10 Essential (primary) hypertension; I25.2 Old myocardial infarction; Z79.01 Long term (current) use of anticoagulants; Z87.891 Personal history of nicotine dependence; Z86.73 Personal history of transient ischemic attack (TIA), and cerebral infarction without residual deficits; Z20.822 Contact with and (suspected) exposure to COVID-19; W19.XXXA Unspecified fall, initial encounter
CPT/HCPCS: 36415; 36430; 70450; 71045; 80048; 80053; 81001; 82272; 83605; 83690; 83880; 85014; 85018; 85025; 85610; 85730; 86140; 86850; 86900; 86901; 86920; 87040; 87077; 87086; 87088; 87147; 87186; 87637; 93005; 96361; 96365; 96366; 96367; 96375; 96376; 99285; A9270; C9113; J0696; J7030; J7050; J7060; J7120; P9016

== ENCOUNTER 2023-02-03 13:29 | Outpatient (CLI) | payer MEDICARE, SELFPAY ==
--- NOTE | ~2023-02-03 | PE_ITS ---
EXAMINATION: PET skull to mid thigh DATE: 02/03/2023 15:47 INDICATION: Malignant neoplasm of head and neck. TECHNIQUE: Blood glucose level was 91 mg/dL. 10.051 mCi of 18-fluorodeoxyglucose (18-FDG) was adminis tered i.v. Low dose computed tomography (CT) images were acquired from the base of the brain to the p roximal thighs for attenuation correction and anatomic localization. Automated exposure control was e mployed. Dose-length product (DLP) was 736 mGy-cm. Positron emission tomography (PET) images were acq uired in the same distribution. COMPARISON: PET/CT 03/23/2022 FINDINGS: Head/neck: There are no pathologically enlarged lymph nodes. There is a right mastoid effusion. Chest: Calcified pulmonary nodules and calcified hilar and mediastinal lymph nodes are consistent wit h old granulomatous disease. There is mild chronic lung disease. No pleural effusion. The heart size is normal. There are coronary artery calcifications. No pericardial effusion. Abdomen/pelvis/proximal thighs: There are cysts in the liver measuring up to 8 mm . The gallbladder i s normal. Calcifications in the spleen are consistent with old granulomatous disease. The pancreas an d left adrenal gland are normal. There is a 2.5 cm mass in right adrenal gland without increased acti vity, likely an adenoma. The kidneys are normal. There are no dilated loops of bowel. There are no pa thologically enlarged lymph nodes. There is no free intraperitoneal fluid. There is calcified atheros clerosis of the aorta and many of the other arteries. The prostate is mildly enlarged. There are bila teral inguinal hernias containing fat. There is a chronic compression fracture of L1. There is severe lumbar spondylosis. There are endplate erosions at T12-L1 and L4-L5 with increased activity. IMPRESSION: 1. No evidence of metastatic disease. 2. Endplate erosions at T12-L1 and L4-L5 decreased activity, which may be discitis/osteomyelitis or r apidly progressive spondylosis. Consider lumbar spine MRI without and with contrast. Reviewed, dictated and finalized at location E. IMPRESSION: 1. No evidence of metastatic disease. 2. Endplate erosions at T12-L1 and L4-L5 decreased activity, which may be disci tis/osteomyelitis or rapidly progressive spondylosis. Consider lumbar spine MRI without and with contrast.
[2023-02-03 14:12] LABS: Glucose Point of Care 91 mg/dl (65-105)
== END 2023-02-03 13:30 | disposition home or self-care (01) ==
PROVIDERS: PCP Emergency Medicine; Visit Provider Radiology Radiation Oncology
DX: C76.0 Malignant neoplasm of head, face and neck (principal)
CPT/HCPCS: 78815; A9552

== ENCOUNTER 2023-08-19 09:35 | Outpatient (CLI) | payer MEDICARE, SELFPAY ==
--- NOTE | ~2023-08-19 | CT_ITS ---
EXAMINATION: CT soft tissue neck w con DATE: 08/19/2023 09:59 INDICATION: Right tongue base squamous cell carcinoma. TECHNIQUE: Computed tomography (CT) of the neck was performed with 75 mL Omnipaque-350 intravenous co ntrast. Automated exposure control and iterative reconstruction technique were employed. The dose-callie gth product was 481.82 mGy-cm. COMPARISON: None FINDINGS: There are likely changes of ocular lens replacement surgeries. There is mucosal thickening in the pharynx and larynx and fat stranding in the neck, consistent with changes of radiation therapy . There are no pathologically enlarged lymph nodes. There is plaque in the proximal internal carotid arteries with 0% stenosis relative to normal distal artery lumen diameters. There is severe cervical spondylosis. 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 IMPRESSION: 1. No evidence of metastatic disease. Reviewed, dictated and finalized at location E.
== END 2023-08-19 09:36 | disposition home or self-care (01) ==
LOC: CHSIMG 09:36
PROVIDERS: PCP Radiology Radiation Oncology; Visit Provider Radiology Radiation Oncology
DX: C76.0 Malignant neoplasm of head, face and neck (principal)
CPT/HCPCS: 70491; Q9967

== ENCOUNTER 2023-11-29 14:28 | Outpatient (CLI) | payer MEDICARE, SELFPAY ==
[2023-11-29 19:03] LABS: Albumin Level 3.8 g/dL (3.5-5.1); Anion Gap 6 mmol/L (4-12); Blood Urea Nitrogen 29 mg/dL (9-20); Calcium 9.1 mg/dL (8.4-10.2); Carbon Dioxide 33 mmol/L (22-30); Chloride 102 mmol/L (98-107); Estimated Glomerular Filt Rate 49; Glucose 89 mg/dL (65-110); Phosphorus 3.1 mg/dL (2.5-4.5); Potassium 4.4 mmol/L (3.4-5.0); Sodium 141 mmol/L (137-145)
== END 2023-11-29 14:29 | disposition home or self-care (01) ==
LOC: ANHGOSHLAB 14:29
PROVIDERS: PCP Emergency Medicine; Visit Provider Emergency Medicine
DX: E86.0 Dehydration (principal)
CPT/HCPCS: 36415; 80069

== ENCOUNTER 2024-08-02 13:40 | Outpatient (CLI) | payer MEDICARE, SELFPAY ==
--- OUTSIDE RECORDS SUMMARY | 2024-08-02 14:03 | XMS_ITS | Clinical Summary ---
Author Organization [facility] Mikie Rodríguez Address [address] [place] [address] Care Team Providers Care Gas Charger Name Role Phone Unavailable Primary Care Provider Unavailabl e Allergies No known active allergies Medications atorvastatin (LIPITOR) 40 mg tablet 04/06/2022 Active clopidogreL (PLAVIX) 75 mg Tablet Take 75 mg by mouth daily. 03/04/2022 Active losartan-hydroCH LOROthiazide (HYZAAR) 100-12.5 mg tablet Take 1 Tablet by mouth daily. 01/14/2022 Active ondansetron (Zofran) 8 mg Tablet Take 1 Tablet (8 mg) by mouth every 8 hours as needed for Nausea/Emes is. 90 Tablet 3 04/15/2022 Active sucralfate (Carafate) 100 mg/mL suspensionIndica tions:radiation- induced mucositis Take 10 mL (1 Gram) by mouth every 8 hours. 414 mL 3 05/19/2022 Active lidocaine (lidocaine viscous 2%) 2 % SolutionIndicati ons:radiation-in duced mucositis 5 mL by Mouth/Throa t route every 6 hours as needed for Pain. 100 mL 3 05/19/2022 Active potassium chloride (KLOR-CON) 10 mEq Extended Release tablet Take 1 Tablet (10 mEq) by mouth 2 times daily. 60 Tablet 05/28/2022 Active Active Problems No known active problems Family History Medical History Relation Name Comments Brain Cancer Brother 3 brothers Stroke Brother 3 brothers Heart Disease Daughter Stomach Cancer Father Heart Disease Mother Heart Disease Sister 7 sisters No Known Problems Son 1 No Known Problems Son 2 No Known Problems Son 3 Relation Name Status Comments Brother 3 brothers Daughter Alive Father Mother Sister 7 sisters Son 1 Alive Son 2 Alive Son 3 Alive Social History Tobacco Use Types Packs/Day Years Used Date Smoking Tobacco: Former Cigarettes Smokeless Tobacco: Never Tobacco Cessation:Counseling Given: Not Answered Sex and Gender Information Value Date Recorded Sex Assigned at Not on file Legal Sex Male 12:45 PM CDT Gender Identity Not on file Sexual Orientation Not on file Last Filed Vital Signs Vital Sign Reading Time Taken Comments Blood Pressure 85/69 05/20/2022 9:20 AM ELECTRONICS MAINTENANCE TECHNICIAN Pulse 76 05/20/2022 9:17 AM ELECTRONICS MAINTENANCE TECHNICIAN Temperature 37.3 C (99.2 F) 05/28/2022 9:31 AM ELECTRONICS MAINTENANCE TECHNICIAN Respiratory Rate 20 05/28/2022 9:31 AM ELECTRONICS MAINTENANCE TECHNICIAN Oxygen Saturation 95% 05/28/2022 9:31 AM ELECTRONICS MAINTENANCE TECHNICIAN Inhaled Oxygen Concentration - - Weight 85.5 kg (188 lb 8 oz) 05/28/2022 9:31 AM ELECTRONICS MAINTENANCE TECHNICIAN Height 177.8 cm (5' 10 ) 04/09/2022 10:10 AM ELECTRONICS MAINTENANCE TECHNICIAN Body Mass Index 27.05 04/09/2022 10:10 AM ELECTRONICS MAINTENANCE TECHNICIAN Plan of Treatment Health Maintenance Due Date Last Done Comments DTAP/TDAP/TD VACCINES (1 - Tdap) 1961 PNEUMOCOCCAL VACCINE 50+ YEARS (1 of 1 - PCV) 11/01/18 93 ZOSTER VACCINE (1 of 2) 1992 RSV VACCINE (60+ or ) (1 - 1-dose 75+ series) 2017 INFLUENZA VACCINE (#1) 2023 [address] [address]
--- OUTSIDE RECORDS SUMMARY | 2024-08-02 14:03 | XMS_ITS ---
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 Past Plans No past plan information found. Radiation Treatments * No radiation treatments are documented for this patient in [facility]. Treatments may have been administered in another system. Lifetime Dose Tracking * Chemical Lifetime Dose Automatic Entry Manual Entr y Dose Length Product 978 mGy-cm 978 mGy-cm 0 mGy-cm
--- OUTSIDE RECORDS SUMMARY | 2024-08-02 14:03 | XMS_ITS | Clinical Summary ---
Author Organization [facility] Address [address] [place] [address] Care Team Providers Care Warehouse Man Name Role Phone Dereck Malcolm MD Primary Care Provider [phone] Michelle Almaraz MD Unavailable Allergies No known active allergies Medications metFORMIN ER (GLUCOPHAGE-XR) 500 MG 24 hr tablet Take 1 tablet (500 mg total) by mouth daily with breakfast. 30 tablet 2 3 Active SOFTCLIX LANCETS Misc USE NEW LANCET TO CHECK GLUCOSE 4 TIMES DAILY BEFORE MEAL(S) AND AT BEDTIME 3 Active MM PEN NEEDLES 31G X 6 MM Misc USE TO INJECT INSULIN DIRECTED 3 Active insulin lispro, 1 Unit Dial, (HUMALOG) 100 UNIT/ML injection (PEN) FOLLOW SLIDING SCALE FROM DR Martin OFFICE: BLOOD SUGAR <70 MG/DL: FOLLOW HYPOGLYCEMIA (LOW BLOOD SUGAR) PROTOCOL. (70-200MG/DL: NO INSULIN NEEDED) (201-250: 2 UNITS) (251-300: 3 UNITS) (301-350: 4 UNITS) (351-400: 5 UNITS) (GREATER THAN 400=CALL ) 3 Active ACCU-CHEK GUIDE test strip USE NEW STRIP 4 TIMES DAILY FOR GLUCOSE TESTING BEFORE MEAL(S) AND AT BEDTIME 3 Active Blood Glucose Monitoring Suppl (ACCU-CHEK GUIDE ME) w/Device Kit USE TO CHECK BLOOD GLUCOSE 4 TIMES DAILY DIRECTED BEFORE MEALS AND AT BEDTIME 3 Active Alcohol Swabs (B-D SINGLE USE SWABS REGULAR) Pads USE NEW SWAB 4 TIMES DAILY FOR GLUCOSE TESTING 3 Active apixaban (ELIQUIS) 5 MG tablet Take 1 tablet (5 mg total) by mouth 2 (two) times daily. 180 tablet 3 3 Active aspirin EC (ECOTRIN) 81 MG tablet Take 1 tablet (81 mg total) by mouth daily. 90 tablet 3 3 Active atorvastatin (LIPITOR) 80 MG tablet Take 1 tablet (80 mg total) by mouth daily. 90 tablet 3 3 Active Active Problems Problem Noted Date Diagnosed Date Atrial flutter ([facility]) 08/27/2022 Acute on chronic systolic co ngestive heart failure ([facility]) 08/27/2022 Premature atrial contractions 08/27/2022 Left bundle branch block (LBBB) 08/27/2022 Atrial tachycardia ([facility]) 08/27/2022 Atrial fibrillation with rap id ventricular response ([facility]) 08/26/2022 Sepsis ([facility]) 08/26/2022 Septic shock ([facility]) 07/10/2022 Diplopia 06/30/2022 Family History Medical History Relation Comments Diabetes type II Mother HTN Mother Relation Status Comments Mother Social History Tobacco Use Types Packs/Day Years Used Date Smoking Tobacco: Former Cigarettes Q uit: 1961 Smokeless Tobacco: Never Alcohol Use Standard Drinks/Week Comments Not Currently 0 (1 standard drink = 0.6 oz pur e alcohol) Humiliation, Afraid, Rape, and Kick questionnair e Answer Date Recorded Within the last year, have y ou been afraid of your partner or ex-partner? No 08/26/2022 Within the last year, have y ou been humiliated or emotionally abused in other ways by your partner or ex-partner? No Within the last year, have y ou been kicked, hit, slapped, or otherwise physically hurt by your partner or ex-partner? No 08/26/2022 Within the last year, have y ou been raped or forced to have any kind of sexual activity by your partner or ex-partner? No 08/26/2022 Overall Financial Resource Strain (CARDIA) Answe r Date Recorded How hard is it for you to pa y for the very basics like food, housing, medical care, and heating? Not hard at all 08/26/2022 Hunger Vital Sign Answer Date Recorded Within the past 12 months, y ou worried that your food would run out before you got the money to buy more. Never true 08/27/19 23 Within the past 12 months, t he food you bought just didn't last and you didn't have money to get more. Never true 08/26/2022 PRAPARE - Transportation Answer Date Re corded In the past 12 months, has l ack of transportation kept you from medical appointments or from getting medications? No 08/01 In the past 12 months, has l ack of transportation kept you from meetings, work, or from getting things needed for daily living? No 08/26/2022 Housing Stability Vital Sign Answer Calos e Recorded In the last 12 months, was t here a time when you were not able to pay the mortgage or rent on time? No 08/26/2022 In the last 12 months, how many places have you lived? 1 08/26/2022 In the last 12 months, was t here a time when you did not have a steady place to sleep or slept in a long-term (including now)? No 08/26/2022 Sex and Gender Information Value Date Recorded Sex Assigned at Not on file Legal Sex Male 4:40 PM AERONAUTICAL PROJECT ENGINEER Gender Identity Not on file Sexual Orientation Not on file Last Filed Vital Signs Vital Sign Reading Time Taken Comments Blood Pressure 104/56 04/08/2023 2:10 PM AERONAUTICAL PROJECT ENGINEER Pulse 69 04/08/2023 2:10 PM AERONAUTICAL PROJECT ENGINEER Temperature 36.3 C (97.4 F) 08/31/2022 11:25 AM CDT Respiratory Rate 15 04/08/2023 2:10 PM AERONAUTICAL PROJECT ENGINEER Oxygen Saturation 98% 04/08/2023 2:10 PM AERONAUTICAL PROJECT ENGINEER Inhaled Oxygen Concentration - - Weight 67.1 kg (148 lb) 04/08/2023 2:10 PM AERONAUTICAL PROJECT ENGINEER Height 175.3 cm (5' 9 ) 04/08/2023 2:10 PM AERONAUTICAL PROJECT ENGINEER Body Mass Index 21.86 04/08/2023 2:10 PM AERONAUTICAL PROJECT ENGINEER Plan of Treatment Health Maintenance Due Date Last Done Comments DTaP, Tdap and Td Vaccines (1 - Tdap) 1961 Zoster Vaccines (1 of 2) 1992 Annual Medicare Wellness Visit 11/02/2007 RSV Immunization or 60+ Years (1 - 1-dose 75+ series) 2017 Pneumococcal Vaccine: 65+ Years (2 of 2 - PCV) 01/02/2021 01/03/2020 COVID-19 Vaccine ( season) 2024 07/30/2021, 02/20/2021, 06/25/2020, Additional history exists Meningococcal B Vaccine Aged Out No l onger eligible based on patient's age to complete this topic Meningococcal Vaccine Aged Out No andrea farrah eligible based on patient's age to complete this topic RSV Immunizations Under 20 Months Aged Out No longer eligible based on patient's age to complete this topic Insurance [id number] Advance Directives * POLST (Latest Code Status on File) Date Activated Date Inactivated Comments 08/26/2022 3:43 PM 08/31/2022 4:10 PM Question Answer Comments Cardiopulmonary Resuscitatio n (CPR) If patient has no pulse and is not breathing: ATTEMPT Resuscitation CPR Medical Interventions when N OT in Cardiopulmonary Arrest (If patient is found with a pulse and/or is breathing): Selective Treatment - Do NOT Intubate * Full Code Date Activated Date Inactivated Comments 08/26/2022 3:10 PM 08/26/2022 3:43 PM * POLST Date Activated Date Inactivated Comments 07/10/2022 12:12 AM 07/14/2022 4:31 PM Question Answer Comments Cardiopulmonary Resuscitatio n (CPR) If patient has no pulse and is not breathing: ATTEMPT Resuscitation CPR Medical Interventions when N OT in Cardiopulmonary Arrest (If patient is found with a pulse and/or is breathing): Selective Treatment - Do NOT Intubate Selective Treatment Options: OxygenSucti onCPAP/BIPAPIV FluidsIV Medications Documentation of discussion: [facility] Surrogate Decision Maker Care Teams Warehouse Man Relationship Specialty Start Date End Date Dereck Malcolm MD [address] [place] [address] PCP - General 07/04/22 Michelle Almaraz MD [address] [place] [address] Consulting Physician CARDIOVASCULAR DISEASE 08/25/22
--- OUTSIDE RECORDS SUMMARY | 2024-08-02 14:03 | XMS_ITS | Clinical Summary ---
Author Organization [facility] Address [address] [place] [address] Care Team Providers Care Building Pressure Washer Name Role Phone Unavailable Primary Care Provider Unavailabl e Source Comments [facility],non-owned Affiliates and Associated Physician Practices is amultiple site organization consisting of ambulatory clinics and hospital sitesin [place], [place], [place]. This disclosure is being madepursuant to the Care Everywhere program and may not contain all information available regarding this patient. Last updated 18.[facility] Allergies No known active allergies Medications * Be aware that medications may not be up to date on this document. Alwaysverify current medications with the patient. 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 Social History Tobacco Use Types Packs/Day Years Used Date Smoking Tobacco: Never Smokeless Tobacco: Never Tobacco Cessation:Counseling Given: Not Answered Alcohol Use Standard Drinks/Week Comments Never 0 (1 standard drink = 0.6 oz pur e alcohol) Sex and Gender Information Value Date Recorded Sex Assigned at Not on file Gender Identity Not on file Sexual Orientation Not on file Last Filed Vital Signs Vital Sign Reading Time Taken Comments Blood Pressure 120/70 03/05/2022 2:13 PM CDT Pulse 84 03/05/2022 2:13 PM CDT Temperature - - Respiratory Rate - - Oxygen Saturation - - Inhaled Oxygen Concentration - - Weight 91.6 kg (202 lb) 03/05/2022 2:13 PM CDT Height 175.3 cm (5' 9 ) 03/05/2022 2:13 PM CDT Body Mass Index 29.83 03/05/2022 2:13 PM CDT Plan of Treatment Health Maintenance Due Date Last Done Comments DTAP/TDAP/TD VACCINES (1 - Tdap) 1961 PNEUMOCOCCAL VACCINE 50+ (1 of 1 - PCV) 1992 ZOSTER VACCINE (1 of 2) 1992 Respiratory Syncytial Virus (RSV) Vaccine Pt: or over 60 yrs (1 - 1-dose 75+ series) 2017 COVID-19 VACCINE ( - 2023-2 5 season) 2024 INFLUENZA VACCINE (#1) 2024 DEPRESSION SCREENING 05/02/2024 MEDICARE AWV CALENDAR YEAR 2024 HEPATITIS B VACCINE Aged Out No longe r eligible based on patient's age to complete this topic HIB VACCINE Aged Out No longer eligi ble based on patient's age to complete this topic HPV VACCINE Aged Out No longer eligi ble based on patient's age to complete this topic MENINGOCOCCAL (Group B) VACC INE SHARED DECISION-MAKING Aged Out No longer eligibl e based on patient's age to complete this topic MENINGOCOCCAL GROUPS A/C/Y/W VACCINE Aged Out No longer eligible b ased on patient's age to complete this topic JaydenBebo Personal/Family Self 1940 [address] [place] [address] [place] Personal/Family Spouse [address] [place] [address]
--- OUTSIDE RECORDS SUMMARY | 2024-08-02 14:04 | XMS_ITS | Encounter Summary ---
Author Organization [facility] Address [address] [place] [address] Care Team Providers Care Clothing Patternmaker Name Role Phone Dereck Malcolm MD Primary Care Provider [phone] Michelle Almaraz MD Unavailable Encounter Details Date Type Department Care Team (Late st Contact Info) Description 09/02/2022 Hospital Follow-up Call [facility] Cardiovascular Care Unit [address] [place] [address] Graciela Kamara, RN Social History Tobacco Use Types Packs/Day Years [...] place to sleep or slept in a penitentiary (including now)? No 08/26/2022 Sex and Gender Information Value Date Recorded Sex Assigned at Not on file Legal Sex Male 4:40 PM TOURIST INFORMATION ASSISTANT Gender Identity Not on file Sexual Orientation Not on file COVID-19 Exposure Response Date Recorded In the last 10 days, have yo u been in contact with someone who was confirmed or suspected to have Coronavirus/COVID-19? No / Unsure 08/26/2022 4:40 PM CDT documented as of this encounter Functional Status * Are you deaf or do you have serious difficulty hearing Answer Date of Assessment Author Status No 08/26/2022 4:00 PM CDT Alo Yang RN Active * Are you blind or do you have serious difficulty seeing, even when wearing glasses? Answer Date of Assessment Author Status No 08/26/2022 4:00 PM CDT Alo Yang RN Active * Do you have serious difficulty walking or climbing stairs? Answer Date of Assessment Author Status Yes 08/26/2022 4:00 PM CDT Alo Yang RN Active * Do you have difficulty dressing or bathing? Answer Date of Assessment Author Status No 08/26/2022 4:00 PM Alo Whalen RN Active * Because of a physical, mental, or emotional condition, do you have difficulty doing errands alone such as visiting a doctor's office or shopping? Answer Date of Assessment Author Status No 08/26/2022 4:00 PM Alo Whalen RN Active documented as of this encounter Mental Status * Because of a physical, mental, or emotional condition, do you have serious difficulty concentrating, remembering, or making decisions? Answer Entry Date Author Status No 08/26/2022 4:00 PM Alo Whalen RN Active documented in this encounter Plan of Treatment Not on file documented as of this encounter Visit Diagnoses Not on filedocumented in this encounter Care Teams Clothing Patternmaker Relationship Specialty Start Date End Date Dereck Malcolm MD [address] [place] [address] PCP - General 07/04/22 Michelle Almaraz MD [address] [place] [address] Consulting Physician CARDIOVASCULAR DISEASE 08/25/22 documented as of this encounter
[2024-08-02 19:13] LABS: Basophils Percent Auto 0.6 % (0.2-1.2); Eosinophils Absolute Auto 0.2 K/mm3 (0-0.3); Hematocrit 40.9 % (42.0-52.0); Hemoglobin 13.6 g/dL (14.0-18.0); Immature Granulocyte Absolute 0.01 K/mm3 (0.00-0.031); Immature Granulocyte Percent A 0.1 % (0-0.5); Lymphocytes Absolute Auto 1.87 K/mm3 (0.9-3.2); Lymphocytes Percent Auto 26.7 % (18.3-44.2); Mean Corpuscular HGB Conc 33.3 g/dl (32-36); Mean Corpuscular Hemoglobin 33.1 pg (26-34); Mean Corpuscular Volume 99.5 fl (80-100); Mean Platelet Volume 9.4 fl (7.4-10.4); Monocytes Absolute Auto 0.5 K/mm3 (0.1-0.6); Monocytes Percent Auto 7.3 % (2.6-8.5); Neutrophils Absolute Auto 4.4 K/mm3 (1.3-6.7); Neutrophils Percent Auto 62.3 % (45.5-73.1); Platelet Count Result 162 k/mm3 (150-375); Red Blood Count 4.11 M/mm3 (4.6-6.20); Red Cell Distribution Width 13.1 % (11.5-14.5)
[2024-08-02 19:26] LABS: Alanine Aminotransferase 17 U/L (6-50); Albumin Level 3.8 g/dL (3.5-5.1); Alkaline Phosphatase 73 U/L (38-126); Anion Gap 7 mmol/L (4-12); Aspartate Amino Transferase 38 U/L (17-59); Bilirubin,Total 0.5 mg/dL (0.2-1.3); Blood Urea Nitrogen 25 mg/dL (9-20); Calcium 8.9 mg/dL (8.4-10.2); Carbon Dioxide 31 mmol/L (22-30); Chloride 102 mmol/L (98-107); Cholesterol 153 mg/dL (0-200); Estimated Glomerular Filt Rate 48; Glucose 112 mg/dL (65-110); HDL Direct 66 mg/dL; Potassium 4.5 mmol/L (3.4-5.0); Sodium 140 mmol/L (137-145); Triglycerides 124 mg/dL (<150)
[2024-08-02 19:41] LABS: LDL Cholesterol Direct 63 mg/dL
[2024-08-02 20:31] LABS: Hemoglobin A1C 5.1 % (<5.7)
== END 2024-08-02 13:41 | disposition home or self-care (01) ==
LOC: ANHGOSHLAB 13:42
PROVIDERS: PCP Internal Medicine; Visit Provider Nurse Practitioner
DX: E11.9 Type 2 diabetes mellitus without complications (principal); I10 Essential (primary) hypertension; D64.9 Anemia, unspecified
CPT/HCPCS: 36415; 80053; 80061; 83036; 85025

== ENCOUNTER 2024-08-23 12:55 | Outpatient (CLI) | payer MEDICARE, SELFPAY ==
--- NOTE | ~2024-08-23 | CT_ITS ---
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 TECHNIQUE: Computed tomography (CT) of the neck was performed with 75 mL Omnipaque-350 intravenous co ntrast. Automated exposure control and iterative reconstruction technique were employed. The dose-callie gth product was 524.45 mGy-cm. COMPARISON: 08/19/2023 FINDINGS: Changes of bilateral intraocular lens replacement. There is mucosal thickening in the bilateral poste rior ethmoid sinuses. Mastoid air cells and middle ear cavities are clear. Visualized portion of the brain are unremarkable. Atherosclerotic calcifications without hemodynamically significant stenosis a t the bilateral carotid siphons. There is been interval decrease in the degree of mucosal thickening in the pharynx and larynx as well as of the surrounding fat stranding to change of radiation treatmen t. No new or enlarging soft tissue nodules to suggest progression of reported malignancy. Normal epig lottis. No pathologically enlarged cervical lymphadenopathy. Atherosclerotic calcifications at the bi lateral carotid bulbs without hemodynamically significant stenosis. Interval development of asymmetri c atrophy right submandibular gland. Bilateral parotid glands and the thyroid gland are normal. Minim al atelectasis in the left upper lobe along the major fissure. Small calcified left upper lobe nodule consistent with old granulomatous disease. Superior mediastinum is unremarkable. 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 IMPRESSION: 1. Unchanged radiation treatment in the neck with no evidence of residual, locally recurrent or metas tatic disease. 2. Interval development of fatty atrophy of the right submandibular gland which may also be related t o prior radiation treatment. Reviewed, dictated and finalized at location A. IMPRESSION: 1. Unchanged radiation treatment in the neck with no evidence of residual, loca lly recurrent or metastatic disease. 2. Interval development of fatty atrophy of the right submandibular gland which may also be related to prior radiation treatment.
--- OUTSIDE RECORDS SUMMARY | 2024-08-23 13:58 | XMS_ITS | Clinical Summary ---
Author Organization [facility]3] Mikie Rodríguez Address [address] [place] [address] Care Team Providers Care Spot Man Name Role Phone Unavailable Primary Care Provider [...] Comments Blood Pressure 85/69 05/20/2022 9:20 AM PILER Pulse 76 05/20/2022 9:17 AM PILER Temperature 37.3 C (99.2 F) 05/28/2022 9:31 AM PILER Respiratory Rate 20 05/28/2022 9:31 AM PILER Oxygen Saturation 95% 05/28/2022 9:31 AM PILER Inhaled Oxygen Concentration - - Weight 85.5 kg (188 lb 8 oz) 05/28/2022 9:31 AM PILER Height 177.8 cm (5' 10 ) 04/09/2022 10:10 AM PILER Body Mass Index 27.05 04/09/2022 10:10 AM PILER Plan of Treatment Health Maintenance Due Date Last Done Comments DTAP/TDAP/TD VACCINES (1 - Tdap) 1961 PNEUMOCOCCAL VACCINE 50+ YEARS (1 of 1 - PCV) 11/01/18 93 ZOSTER VACCINE (1 of 2) 1992 RSV VACCINE (60+ or ) (1 - 1-dose 75+ series) 2017 INFLUENZA VACCINE (#1) 2023 [id number] [address]
--- OUTSIDE RECORDS SUMMARY | 2024-08-23 13:59 | XMS_ITS ---
Author Organization Unknown Address [place], [place] [id number] Phone Care Team Providers Care Qual Field Manager Name Role Phone LARSEN CHAPO Attending Unavailable NO PCP Primary Unavailable Immunization Immunization Date Status Additional Notes Code Code System pneumococcal polysaccharide PPV23 01/03/2020 Completed 33 CVX Influenza, high-dose, trivalent, PF 03/10/2018 Completed 135 CVX Influenza, split virus, quadrivalent, PF 01/03/2020 Completed 150 CVX Influenza, recombinant, quadrivalent, PF 02/12/2019 Completed 185 CVX Influenza, adjuvanted, quadrivalent, PF 04/09/2021 Completed 205 CVX Influenza, adjuvanted, quadrivalent, PF 02/13/2022 Completed 205 CVX Influenza, adjuvanted, quadrivalent, PF 03/28/2023 Completed 205 CVX COVID-19, mRNA, LNP-S, PF, 3 0 mcg/0.3 mL dose 06/04/2020 Completed 208 CVX COVID-19, mRNA, LNP-S, PF, 3 0 mcg/0.3 mL dose 06/25/2020 Completed 208 CVX COVID-19, mRNA, LNP-S, PF, 3 0 mcg/0.3 mL dose 02/20/2021 Completed 208 CVX COVID-19, mRNA, LNP-S, PF, 3 0 mcg/0.3 mL dose, johanny-sucrose 07/30/2021 Completed 217 CVX COVID-19, mRNA, LNP-S, PF, jhoanny-sucrose, 30 mcg/0.3 mL 03/28/2023 Completed 309 CVX Social History Type Status Start Date End Date Code Code Syst em Sex Male Hospital Discharge Instructions Should you have any questions prior to discharge, please contact a member of your healthcare team. If you have left the hospital and have any questions, please contact your primary care physician. Reason For Referral No Data Found Plan of Treatment No Data Found Encounters Encounter Diagnosis Start Date Code Code Sys tem Atrial fibrillation 04/07/2023 [id number] SNOMED-C T Personal Care Team Section Performer Name Performer Role Active Date Inactive Da te
--- OUTSIDE RECORDS SUMMARY | 2024-08-23 13:59 | XMS_ITS ---
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 Past Treatment and Therapy Plans No past plan information found. Lifetime Dose Tracking * Chemical Lifetime Dose Automatic Entry Manual Entr y Dose Length Product 978 mGy-cm 978 mGy-cm 0 mGy-cm
--- OUTSIDE RECORDS SUMMARY | 2024-08-23 13:59 | XMS_ITS | Clinical Summary ---
Author Organization [facility] Address [address] [place] [address] Care Team Providers Care Glaze Sprayer Name Role Phone Dereck Malcolm MD Primary Care Provider [phone] Michelle Almaraz MD Unavailable Allergies No known [...] Problem Noted Date Diagnosed Date Atrial flutter ([facility]) 08/27/2022 Acute on chronic systolic co ngestive heart failure ([facility]) 08/27/2022 Premature atrial contractions 08/27/2022 Left bundle branch block (LBBB) 08/27/2022 Atrial tachycardia ([facility]) 08/27/2022 Atrial fibrillation with rap id ventricular response ([facility]) 08/26/2022 Sepsis ([facility]) 08/26/2022 Septic shock ([facility]) 07/10/2022 Diplopia 06/30/2022 Family History Medical History [...] place to sleep or slept in a correction (including now)? 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 Gender Identity Not on file Sexual Orientation Not on file Last Filed Vital Signs Vital Sign Reading Time Taken Comments Blood Pressure 104/56 04/08/2023 2:10 PM WOOD FINISHER APPRENTICE Pulse 69 04/08/2023 2:10 PM WOOD FINISHER APPRENTICE Temperature 36.3 C (97.4 F) 08/31/2022 11:25 AM CDT Respiratory Rate 15 04/08/2023 2:10 PM WOOD FINISHER APPRENTICE Oxygen Saturation 98% 04/08/2023 2:10 PM WOOD FINISHER APPRENTICE Inhaled Oxygen Concentration - - Weight 67.1 kg (148 lb) 04/08/2023 2:10 PM WOOD FINISHER APPRENTICE Height 175.3 cm (5' 9 ) 04/08/2023 2:10 PM WOOD FINISHER APPRENTICE Body Mass Index 21.86 04/08/2023 2:10 PM WOOD FINISHER APPRENTICE Plan of Treatment Health Maintenance Due Date Last Done Comments DTaP, Tdap and Td Vaccines (1 - Tdap) 1961 Zoster Vaccines (1 of 2) 1992 Annual Medicare Wellness Visit 11/02/2007 RSV Immunization or 60+ Years (1 - 1-dose 75+ series) 2017 Pneumococcal Vaccine: 50+ Years (2 of 2 - PCV) 01/02/2021 [...] age to complete this topic Insurance [id number] Advance Directives * POLST (Latest Code [...] th Care Surrogate Decision Maker Care Teams Glaze Sprayer Relationship Specialty Start Date End Date Dereck Malcolm MD [address] [place] [address] PCP - General 07/04/22 Michelle Almaraz MD [address] [place] [address] Consulting Physician CARDIOVASCULAR DISEASE 08/25/22
--- OUTSIDE RECORDS SUMMARY | 2024-08-23 13:59 | XMS_ITS | Clinical Summary ---
Author Organization [facility] [employer] Address [address] [place] [address] Care Team Providers Care Relief Master Name Role Phone Unavailable Primary Care Provider Unavailabl e Source Comments [facility] [employer],non-owned Affiliates and Associated Physician Practices is amultiple site organization consisting of ambulatory clinics and hospital sitesin [place], [place], [place] and [place]. This disclosure is being madepursuant to the Care Everywhere program and may not contain all information available regarding this patient. Last updated 18.[facility] [employer] Allergies No known active allergies Medications * Be aware that medications may not be up to date on this document. Alwaysverify current medications with the patient. atorvastatin (Lipitor) 40 MG tablet Take 1 (one) tablet by mouth once daily 12/17/2021 Active clopidogrel (plaVIX) 75 MG tablet Take 1 (one) tablet by mouth once daily 11/30/2021 Active losartan-hydroCH LOROthiazide (Hyzaar) 100-12.5 MG tablet Take 1 (one) [...] at Not on file Legal Sex Male 10:33 AM CDT Gender Identity Not on file Sexual [...] VACCINE ( - 2023-2 5 season) 2024 DEPRESSION SCREENING 05/02/2024 MEDICARE AWV CALENDAR YEAR 2024 INFLUENZA VACCINE (Season Ended) 2024 HEPATITIS B VACCINE Aged Out No [...] age to complete this topic Insurance [id number] MANAGED MEDICARE ADV [id number] MANAGED MEDICARE ADV
--- OUTSIDE RECORDS SUMMARY | 2024-08-23 13:59 | XMS_ITS | Encounter Summary ---
Author Organization [facility] Address [address] [place] [address] Care Team Providers Care Client Solutions Manager Name Role Phone Dereck Malcolm MD Primary Care Provider [phone] Michelle Almaraz MD Unavailable Encounter Details Date Type Department Care Team (Late st Contact Info) Description 09/02/2022 Hospital Follow-up Call [facility] Cardiovascular Care Unit [address] [place] [address] Graciela Kamara, RN Social History [...] place to sleep or slept in a detention (including now)? No 08/26/2022 Sex and Gender Information Value Date Recorded Sex Assigned at Not on file Legal Sex Male 4:40 PM BEER BREWER Gender Identity Not on file Sexual Orientation [...] on filedocumented in this encounter Care Teams Client Solutions Manager Relationship Specialty Start Date End Date Dereck Malcolm MD [address] [place] [address] PCP - General 07/04/22 Michelle Almaraz MD [address] [place] [address] Consulting Physician CARDIOVASCULAR DISEASE 08/25/22 documented as of this encounter
== END 2024-08-23 12:56 | disposition home or self-care (01) ==
LOC: CHSIMG 12:56
PROVIDERS: PCP Internal Medicine; Visit Provider Radiology Radiation Oncology
DX: C01 Malignant neoplasm of base of tongue (principal); M79.89 Other specified soft tissue disorders
CPT/HCPCS: 70491; Q9967